=== PATIENT | female | born 1950 | race Caucasian/White ===

== ENCOUNTER 2020-07-05 19:58 | Emergency (ER) | payer MEDICARE, OTHER ==
--- NOTE | 2020-07-05 20:34 | NUR ---
ekg performed and given to md for review
[2020-07-05 20:51] LABS: BASOPHILS # (AUTO) 0.1 (0.0-0.1); BASOPHILS % 1.3 % (0.0-1.0); EOSINOPHILS # (AUTO) 0.1 (0.0-0.4); EOSINOPHILS % 2.3 % (0.0-6.0); HEMATOCRIT 35.7 % (34.2-44.1); HEMOGLOBIN 11.3 g/dL (12.0-16.0); LYMPHOCYTES # (AUTO) 2.3 (1.0-3.2); LYMPHOCYTES % 38.2 % (18.0-39.1); MEAN CORPUSCULAR HEMOGLOBIN 29.3 pg (28-32); MEAN CORPUSCULAR HGB CONC 31.7 g/dL (31-35); MEAN CORPUSCULAR VOLUME 92.5 fL (81-99); MONOCYTES # (AUTO) 0.8 (0.2-0.8); MONOCYTES % 13.2 % (4.4-11.3); NEUTROPHILS # (AUTO) 2.7 (2.1-6.9); NEUTROPHILS % 44.7 % (38.7-80.0); PLATELET COUNT 146 x10e3/uL (140-360); RED BLOOD COUNT 3.86 x10e6/uL (3.6-5.1); RED CELL DISTRIBUTION WIDTH 17.6 % (11.7-14.4)
--- NOTE | 2020-07-05 20:51 | Emergency Department Note ---
History of Present Illnes History of Present Illness Chief Complaint: Respiratory History of Present Illness This is a 69 year old female swelling in legs for 3 years;worsening for the past 3 days; patient admits to not following up with pcp as instructed. denies chest pain, shortness of breath, or back pain . Historian: Patient EMS Treatment [employer]: IV Onset (how long ago): year(s) (3) Location: FEET, LOWER EXTREMITIES Quality: SWELLING Radiation: Reports non-radiation Severity: moderate Onset quality: gradual Duration (how long): month(s) (36) Timing of current episode: constant Progression: worsening Chronicity: chronic Context: Denies recent illness, Denies recent surgery, Denies trauma/injury Relieving factors: none Exacerbating factors: none Associated symptoms: Reports denies other symptoms Past Medical/Family History Physician Review I have reviewed the patient's past medical and family history. Any updates have been documented here. Past Medical History Recent Fever: No Clinical Suspicion of Infectio: No New/Unexplained Change in Ment: No Past Medical History: None Other Surgery: breast augmentation gastric bypass pelvic reconstruction tonsillectomy appendectomy Social History Smoking Cessation: Never Smoker Counseling Performed: No Alcohol Use: Occasional Any Illegal Drug Use: No Physically hurt or threatened: No Family History Family history of heart diseas: No Review of Systems Review of Systems Constitutional: Reports no symptoms EENTM: Reports no symptoms Cardiovascular: Reports no symptoms Respiratory: Reports no symptoms Gastrointestinal: Reports no symptoms Genitourinary: Reports no symptoms Musculoskeletal: Reports no symptoms Integumentary: Reports as per HPI Neurological: Reports no symptoms Psychological: Reports no symptoms Endocrine: Reports no symptoms Hematological/Lymphatic: Reports no symptoms Physical Exam Related Data Allergies: Coded Allergies: No Known Allergies (Unverified , 07/05/20) Triage Vital Signs Vital Signs Date Time Temp Pulse Resp B/P (MAP) Pulse Ox O2 Delivery O2 Flow Rate FiO2 07/05/20 20:24 98.8 96 18 141/84 100 Room Air Vital signs reviewed: Yes Physical Exam CONSTITUTIONAL Constitutional: Present well-developed, Present well-nourished; Absent distressed HENT HENT: Present normocephalic, Present atraumatic, Present oropharynx clear/moist, Present nose normal HENT L/R: Present left ext ear normal, Present right ext ear normal EYES Eyes: Reports PERRL, Reports conjunctivae normal NECK Neck: Present ROM normal PULMONARY Pulmonary: Present effort normal, Present breath sounds normal CARDIOVASCULAR Cardiovascular: Present regular rhythm, Present heart sounds normal, Present capillary refill normal, Present normal rate GASTROINTESTINAL Abdominal: Present soft, Present nontender, Present bowel sounds normal GENITOURINARY Genitourinary: Present exam deferred SKIN Skin: Present warm, Present dry MUSCULOSKELETAL Musculoskeletal: Present ROM normal, Present edema (3+ PITING EDEMA TO FEET AND ANKLES BILATERAL) NEUROLOGICAL Neurological: Present alert, Present oriented x 3, Present no gross motor or sensory deficits PSYCHOLOGICAL Psychological: Present mood/affect normal, Present judgement normal Results Laboratory Laboratory Laboratory Tests Test 07/05/20 20:25 White Blood Count 6.07 x10e3/uL (4.8-10.8) Red Blood Count 3.86 x10e6/uL (3.6-5.1) Hemoglobin 11.3 g/dL (12.0-16.0) Hematocrit 35.7 % (34.2-44.1) Mean Corpuscular Volume 92.5 fL (81-99) Mean Corpuscular Hemoglobin 29.3 pg (28-32) Mean Corpuscular Hemoglobin Concent 31.7 g/dL (31-35) Red Cell Distribution Width 17.6 % (11.7-14.4) Platelet Count 146 x10e3/uL (140-360) Neutrophils (%) (Auto) 44.7 % (38.7-80.0) Lymphocytes (%) (Auto) 38.2 % (18.0-39.1) Monocytes (%) (Auto) 13.2 % (4.4-11.3) Eosinophils (%) (Auto) 2.3 % (0.0-6.0) Basophils (%) (Auto) 1.3 % (0.0-1.0) Neutrophils # (Auto) 2.7 (2.1-6.9) Lymphocytes # (Auto) 2.3 (1.0-3.2) Monocytes # (Auto) 0.8 (0.2-0.8) Eosinophils # (Auto) 0.1 (0.0-0.4) Basophils # (Auto) 0.1 (0.0-0.1) Absolute Immature Granulocyte (auto 0.02 x10e3/uL (0-0.1) Sodium Level 142 mmol/L (136-145) Potassium Level 3.8 mmol/L (3.5-5.1) Chloride Level 104 mmol/L (98-107) Carbon Dioxide Level 23 mmol/L (22-29) Anion Gap 18.8 mmol/L (8-16) Blood Urea Nitrogen 10 mg/dL (7-26) Creatinine 0.68 mg/dL (0.57-1.11) Estimat Glomerular Filtration Rate > 60 ML/MIN (60-) BUN/Creatinine Ratio 15 (6-25) Glucose Level 90 mg/dL (74-118) Calcium Level 8.8 mg/dL (8.4-10.2) Total Bilirubin 0.4 mg/dL (0.2-1.2) Aspartate Amino Transf (AST/SGOT) 60 IU/L (5-34) Alanine Aminotransferase (ALT/SGPT) 26 IU/L (0-55) Alkaline Phosphatase 94 IU/L (40-150) Creatine Kinase 26 IU/L (29-168) Creatine Kinase MB 0.60 ng/mL (0-5.0) Troponin I < 0.001 ng/mL (0-0.300) B-Type Natriuretic Peptide 103.1 pg/mL (0-100) Total Protein 7.0 g/dL (6.5-8.1) Albumin 3.2 g/dL (3.5-5.0) Globulin 3.8 g/dL (2.3-3.5) Albumin/Globulin Ratio 0.8 (0.8-2.0) Lab results reviewed: Yes Imaging Imaging results reviewed: Yes Impressions EXAMINATION: CHEST 2 VIEWS INDICATION: sob COMPARISON: None FINDINGS: TUBES and LINES: None. LUNGS: Normal lung volumes. Lungs are clear. No consolidations. Eventration of the anterior leaflet of the right hemidiaphragm. PLEURA: No pleural effusion or pneumothorax. HEART AND MEDIASTINUM: The cardiomediastinal silhouette is unremarkable. BONES AND SOFT TISSUES: Bones are demineralized. UPPER ABDOMEN: No free air under the diaphragm. Surgical changes of the gastroesophageal junction. IMPRESSION: No acute thoracic radiographic abnormality. Signed by: Nata Roy MD on 07/05/2020 9:31 PM Dictated By: NATA ROY MD [id number] Transcribed By: LANIE on 07/05/202130 COPY TO: GOPI GARCIA MD~ Procedures 12 Lead ECG Interpretation ECG Interpretation : ECG: ECG 1 [facility] [facility] [employer]: Interpreted by ED physician Date: Jul 05, 2020 Time: 20:30 Rhythm: sinus rhythm Rate: normal BPM: 87 QRS axis: normal ST segments normal: Yes T waves normal: Yes T waves flattening: V1, V2 Clinical Impression: abnormal ECG Assessment & Plan Medical Decision Making MDM PT WITH LOWER EXTREMITY SWELLING FOR 3 YEARS THAT IS GETTING WORSE CBC, CMP, CARDIAC ENZYMES, BNP, CXR, EKG ORDERED TO EVAL FOR MYOCARDIAL INFARCTION, PULMONARY EDEMA, CHF, RENAL FAILURE, ELECTROLYTE ABNORMALITY. Assessment & Plan Final Impression: (1) Dependent edema Depart Disposition: HOME, SELF-CARE Last Vital Signs Date Time Temp Pulse Resp B/P (MAP) Pulse Ox O2 Delivery O2 Flow Rate FiO2 07/05/20 20:24 98.8 96 18 141/84 100 Room Air GOPI GARCIA MD Jul 05, 2020 20:51
[2020-07-05 21:03] LABS: ALANINE AMINOTRANSFERASE 26 IU/L (0-55); ALBUMIN 3.2 g/dL (3.5-5.0); ALBUMIN/GLOBULIN RATIO 0.8 (0.8-2.0); ALKALINE PHOSPHATASE 94 IU/L (40-150); ANION GAP 18.8 mmol/L (8-16); BLOOD UREA NITROGEN 10 mg/dL (7-26); BUN/CREATININE RATIO 15 (6-25); CALCIUM 8.8 mg/dL (8.4-10.2); CARBON DIOXIDE 23 mmol/L (22-29); CHLORIDE 104 mmol/L (98-107); CREATINE KINASE 26 IU/L (29-168); CREATININE, SERUM 0.68 mg/dL (0.57-1.11); EST GLOMERULAR FILTRATION RATE > 60 ML/MIN (60-); GLUCOSE 90 mg/dL (74-118); POTASSIUM 3.8 mmol/L (3.5-5.1); SODIUM 142 mmol/L (136-145)
--- NOTE | 2020-07-05 21:35 | Diagnostic Imaging Report ---
EXAMINATION: CHEST 2 VIEWS INDICATION: sob COMPARISON: None FINDINGS: TUBES and LINES: None. LUNGS: Normal lung volumes. Lungs are clear. No consolidations. Eventration of the anterior leaflet of the right hemidiaphragm. PLEURA: No pleural effusion or pneumothorax. HEART AND MEDIASTINUM: The cardiomediastinal silhouette is unremarkable. BONES AND SOFT TISSUES: Bones are demineralized. UPPER ABDOMEN: No free air under the diaphragm. Surgical changes of the gastroesophageal junction. IMPRESSION: No acute thoracic radiographic abnormality. Signed by: Yohan Mackay MD on 07/05/2020 9:31 PM
--- OUTSIDE RECORDS SUMMARY | 2020-07-05 21:45 | XMS REPORT | Continuity of Care Document ---
Author Author Miladys Monsalveann [employer] ALICIA Jerez Organization [employer] Address Unknown Phone Unavailable Care Team Providers Care Mother Repairer Name Role Phone [facility] Revalesio Information [employer] Unavailable Un available Problems Problem Status Onset Date Classification Date Reported Comments Source UNK Active 0 02/27/2018 [facility] ROTATOR CUFF, RT SHOULDER Acti ve 02/27/2018 [facility] RT SHOULDER Active 02/25/2018 WILLIAM Henao Pain in right shoulder 02/08/2018 05/11/2018 FABY Henao,[facility] R79.9 - ABNORMAL FINDING OF BLOOD CHEM Active 05/05/2017 [facility] DDC-6 MONTH F/U VISIT Active 08/19/2014 [facility] CIRRHOSIS OF LIVER WITHOUT MENTION OF AL Active 05/20/2014 [facility] 3 MONTH F/U Active 03/25/2014 [facility] ENLARGED LIVER, ELEVATED BILIRUBIN Active 02/17/2014 [facility] Gastric bypass status for obesity(Confirmed) Resolved 11/27/2003 Problem 02/21/2014 [facility] Gastric band attached (finding) Resolved 11/27/2003 Problem 07/28/2019 [facility], FABY Henao,[facility], [facility] [place] [facility] Primary osteoarthritis, right shoulder 05/11/2018 FABY Lina Unspecified rotator cuff tear or rupture of right shoulder, not specified as traumatic 05/11/2018 FABY Henao Bursitis of right shoulder 05/11/2018 FABY Henao Edema Active 03/25/2014 [facility] Abnormal Blood Chemistry Active 03/25/2014 [facility] Alcohol Abuse Active 03/25/2014 [facility] Hypokalemia Active 03/25/2014 [facility] Medications Medication Details Route Status Patient Instructions Ordering Provider Order Date Source Tramadol 50 mg, Route: PO, Filippo g form: TAB, Q6H, Dosing Weight 72.727, kg, PRN Pain Score 1-3, Start date: 03/12/18 19:36:00 CDT, Duration: 30 day, Stop date: 04/11/18 19:35:00 CDT Inactive 03/13/2018 [facility] Acetaminophen 325 MG / Hydrocodone Niki trate 10 MG Oral Tablet 1 tab, Route: PO, Dosing Weight 72.727, kg, Q4H, PRN Pain Score 4-6, Start date: 03/12/18 19:36:00 CDT, Duration: 30 day, Stop date: 04/11/18 19:35:00 CDT Inactive 03/13/2018 [facility] ropivacaine 0.2% 8 ml/hr, Rout e: NERVE BLOCK, Dosing Weight 72.727, kg, Continuous, Start date: 03/12/18 18:30:00 CDT, Duration: 30 day, Stop date: 04/11/18 18:29:00 CDT Inactive 03/12/2018 [facility] neostigmine (ANES) Route: IV, Drug form: INJ, ONCE, Stop date: 03/12/18 18:18:00 CDT Inactive 03/12/2018 [facility] glycopyrrolate (ANES) Route: I V, Drug form: INJ, ONCE, Stop date: 03/12/18 18:18:00 CDT Inactive 03/12/2018 [facility] dexamethasone (ANES) Route: IV , Drug form: INJ, ONCE, Stop date: 03/12/18 18:18:00 CDT Inactive 03/12/2018 [facility] ondansetron (ANES) Route: IV, Drug form: INJ, ONCE, Stop date: 03/12/18 18:18:00 CDT Inactive 03/12/2018 [facility] ceFAZolin (ANES) Route: IV, Dr ug form: INJ, ONCE, Stop date: 03/12/18 17:33:00 CDT Inactive 03/12/2018 [facility] lidocaine (ANES) Route: IV, Dr ug form: INJ, ONCE, Stop date: 03/12/18 17:33:00 CDT Inactive 03/12/2018 [facility] propofol (ANES) Route: IV, Filippo g form: INJ, ONCE, Stop date: 03/12/18 17:33:00 CDT Inactive 03/12/2018 [facility] rocuronium (ANES) Route: IV, D rug form: INJ, ONCE, Stop date: 03/12/18 17:33:00 CDT Inactive 03/12/2018 [facility] midazolam (ANES) Route: IV, Dr ug form: SOLN, ONCE, Stop date: 03/12/18 17:28:00 CDT Inactive 03/12/2018 [facility] fentaNYL (ANES) Route: IV, Filippo g form: INJ, ONCE, Stop date: 03/12/18 17:28:00 CDT Inactive 03/12/2018 [facility] metoclopramide (ANES) Route: I V, Drug form: INJ, ONCE, Stop date: 03/12/18 17:28:00 CDT Inactive 03/12/2018 [facility] Lactated Ringers Injection IV (ANES) 1000 mL Route: IV, Total Volume: 1,000, Start date: 03/12/18 16:15:00 CDT, Stop date: 03/12/18 17:15:00 CDT Inactive 03/12/2018 [facility] Calcium Chloride 0.0014 MEQ/ML / Potassi um Chloride 0.004 MEQ/ML / Sodium Chloride 0.103 MEQ/ML / Sodium Lactate 0.028 MEQ/ML Injectable Solution 1,000 mL, Rate: 25 ml/hr, Infuse over: 4 0 hr, Route: IV, Dosing Weight 72.727 kg, Total Volume: 1,000, Start date: 03/12/18 10:23:00 CDT, Duration: 30 day, Stop date: 04/11/18 10:22:00 CDT, 1.76, m2 Inactive 03/12/2018 [facility] vancomycin + Dextrose 5% in Water IV 250 mL 2001 mg: infuse over 2.5 hours For adult patients only: Round to nearest 250 mg per Medical Staff approval MEDICATION WASTE Product Size: 1000 mg Product Wasted: ___ mg Inactive 03/12/2018 [facility] ceFAZolin + sterile water 20 mL Notes: (Same As: AncefRyanzol) MEDICATION WASTE Product Size: 1000 mg Product Wasted: ___ mg Inactive 03/12/2018 [facility] multivitamin 1 tab, PO, Daily, 0 Refill(s) Active 03/05/2018 [facility] Albuterol 0.833 MG/ML / Ipratropium Brom kat 0.167 MG/ML Inhalant Solution Notes: (Same as: Lan) Inactive 08/04/2017 [facility] Sodium Chloride 0.9% IV 500 mL 500 mL, Rate: 25 ml/hr, Infuse over: 20 hr, Route: IV, Dosing Weight 62.273 kg, Total Volume: 500, Start date: 08/04/17 10:24:00 CDT, Duration: 30 day, Stop date: 09/03/17 10:23:00 CDT Inactive 08/04/2017 [facility] Calcium Carbonate 1500 MG / Cholecalcife rol 800 UNT Oral Tablet [Caltrate Plus D 600/800] 1 tab, PO, Daily, 0 Refill(s) Active 08/04/2017 [facility] Furosemide 20 MG Oral Tablet S ee Instructions, 1 tab PO Daily, 0 Refill(s) Active 08/04/2017 [facility] potassium chloride 10 mEq oral tablet, extended releas e See Instructions, 1 tab PO BID, 0 Refill(s) Active 08/04/2017 [facility] levothyroxine 50 mcg (0.05 mg) oral tablet 50 microgram = 1 tab, PO, Daily, # 30 tab, 0 Refill(s) Active 08/04/2017 [facility] Vitamin B12 PO, 0 Refill(s) Active 05/20/2014 [facility] nt Mag-Ox 400 oral tablet = 400 m g, PO, BID, # 10 tab, 0 Refill(s), Pharmacy: [facility] [id number] Active 02/21/2014 [facility] nter Vitamin D 0 Refill(s) Active 02/19/2014 [facility] nt Chlordiazepoxide Hydrochloride 5 MG / Cl idinium bromide 2.5 MG Oral Capsule [Librax] 1 cap, PO, Bedtime, # 30 cap, 0 Refill(s ) Active 02/19/2014 [facility] Vitamin B6 250 MG Oral Tablet ; Start Date: 02/12/2014; End Date: (Active) Active 02/12/2014 [facility] Calcium + D TABS (Active) Active [facility] B-12 CAPS (Active) Active [facility] TraMADol HCl 50 MG Oral Tablet (Active) Active [facility] Allergies, Adverse Reactions, Alerts Substance Category Reaction Severity Reaction type Status Date Reported Comments Source Darvon Assertion Drug allergy Active [facility] Fortine Demerol HCl Assertion Drug allergy Active [facility] Fortine Darvon CAPS drug allergy drug allergy Active [facility] Darvocet-N 100 TABS drug aller gy drug aller gy Active [facility] Demerol TABS drug allergy drug allergy Active [facility] No Known Drug Allergies drug a llergy drug aller gy Active [facility] Immunizations No Data Provided for This Section Results No Data Provided for This Section Pathology Reports No Data Provided for This Section Diagnostic Reports Report Value Date Source Shoulder wo contrast MRI EXAMI NATION: MR right shoulder without contrast HISTORY: - S46.001A Unspecified injury of muscle(s) and tendon(s) of the rotator cuff of right shoulder, initial encounter; right shoulder pain and limited range of motion with history of fall one month ago; history of prior right shoulder surgeries COMPARISON: Radiographs dated 01/15/2018 and prior MR dated 02/01/2018 are reviewed. TECHNIQUE: Multiplanar, multisequence magnetic resonance imaging of the right shoulder is performed with a local coil. Transverse, oblique coronal, and oblique sagittal images are obtained. FINDINGS: The examination is mildly limited secondary to patient motion artifact, particularly on the sagittal T2-weighted sequences. Biceps: The intra-articular long head of the biceps tendon is not well- visualized and possibly ruptured with distal retraction versus postoperative changes of interval biceps tenodesis or tenotomy. Labrum: The glenoid labrum appears intact. Rotator cuff tendons: There are postoperative changes of interval attempted rotator cuff repair with multiple orthopedic anchors within the greater tuberosity and bone marrow edema along the posterior aspect of the greater tuberosity. There is persistent severe supraspinatus and infraspinatus tendinosis and there is recurrent full-thickness tearing of the distal supraspinatus tendon, but the infraspinatus tendon appears to remain attached at the orthopedic anchor sites. The teres minor and subscapularis tendons apparent intact. Muscles: There is mild decreased bulk of the supraspinatus muscle belly without fatty atrophy. There is normal signal intensity and bulk of the remainder of the rotator cuff musculature. Acromio-osseous outlet: There is a type II acromion without substantial subacromial spur. There is no os acromiale. The coracoacromial and coracoclavicular ligaments are intact. There is mild degenerative arthrosis of the acromioclavicular joint. Bone: Again, there are postoperative changes of interval attempted rotator cuff repair with multiple orthopedic anchors within the greater tuberosity and bone marrow edema along the posterior aspect of the greater tuberosity. Mild osseous degenerative changes are noted at the acromioclavicular joint. There is no acute fracture. There are no suspicious bone marrow replacing lesions. Cartilage: Again, there is mild degenerative arthrosis of the acromioclavicular joint with associated chondrosis. There is no focal glenohumeral chondral defect. Soft tissue: There is a small glenohumeral joint effusion which communicates with the subacromial subdeltoid bursa through the recurrent full-thickness supraspinatus tendon tear. The inferior glenohumeral capsular ligaments are intact with mild periligamentous soft tissue edema. IMPRESSION: 1. Postoperative changes of interval att empted right rotator cuff repair with multiple orthopedic anchors in place as described above with persistent severe supraspinatus and infraspinatus tendinopathy. There is recurrent full-thickness tearing of the distal right supraspinatus tendon, but the infraspinatus tendon appears to remain attached at the orthopedic anchor sites and there is no rotator cuff muscular fatty atrophy. 2. Intra-articular long head of the righ t biceps tendon is not well-visualized and possibly ruptured with distal retraction versus postoperative changes of interval biceps tenodesis or tenotomy. 3. Mild right acromioclavicular degenera tive arthrosis. 4. Intact right glenoid labrum without f ocal glenohumeral chondral defect. 5. Small right glenohumeral joint effusi on with fluid communicating with the subacromial subdeltoid bursa through the recurrent full-thickness supraspinatus tendon tear. 6. Intact inferior right glenohumeral ca psular ligaments with mild periligamentous soft tissue edema. This is nonspecific, but may be seen in the setting of adhesive capsulitis in the correct clinical context. 03/27/2019 JUAN Henao Shoulder wo contrast MRI EXAMI NATION: MR right shoulder without contrast HISTORY: M25.511 Pain in right shoulder - M25.511 Pain in right shoulder; AGE: 67 years GENDER: Female COMPARISON: Right shoulder radiographs 01/15/2018 TECHNIQUE: Multiplanar, multisequence magnetic resonance imaging of the right shoulder is performed with a local coil. Transverse, oblique coronal, and oblique sagittal images are obtained. FINDINGS: Biceps: The long head of the biceps tendon demonstrates severe intra-articular tendinosis. There is no significant tenosynovitis of the long head of the biceps tendon. Labrum: The glenoid labrum appears intact on this non-arthrographic examination. Rotator cuff tendons: There is severe thinning and tendinosis of the supraspinatus tendon with high-grade undersurface tearing of the entirety of the footplate. Moderate tendinosis of the anterior infraspinatus tendon without tear. The subscapularis and teres minor tendons are intact and unremarkable. Muscles: There is normal signal intensity and muscle bulk of the rotator cuff musculature. Acromio-osseous outlet: There is a type 1 acromion without a subacromial spur. The coracoacromial and coracoclavicular ligaments are intact. Mild osteoarthrosis of the acromial clavicular joint. Bone: There are no acute fractures. There are no suspicious bone marrow replacing lesions. Cartilage: There is no focal glenohumeral chondral defect. Soft tissue: There is a moderate volume of fluidin the subacromial-subdeltoid bursa. A physiologic amount of fluid is present in the glenohumeral joint. The glenohumeral capsule is intact. The inferior glenohumeral ligament is unremarkable..The axilla and visualized portions of the hemithorax are unremarkable. IMPRESSION: 1. Severe thinning and tendinosis of the supraspinatus tendon with a high-grade undersurface tear of the entirety of the residual footplate of the supraspinatus. 2. Moderate tendinosis of the anterior i nfraspinatus tendon without tear. 3. Severe intra-articular tendinosis of the long head of the biceps tendon. 4. Moderate subacromial/subdeltoid bursi tis. 02/01/2018 JUAN Henao Shoulder series DX EXAM: XR RI GHT SHOULDER 3 VIEWS DATE: 01/15/2018 at 1254 hours [employer] INDICATION: Pain in right shoulder COMPARISON: None. TECHNIQUE: AP views in internal and external rotation, and an axillary view of the shoulder FINDINGS: No acute fracture or malalignment is identified. No soft tissue abnormality is identified. IMPRESSION: No acute osseous or soft tissue abnormality of the right shoulder. 01/15/2018 [facility] Gallbladder scan HIDA w [facility] NUCLEAR MEDICINE HIDA SCAN July 10, 2017 at 1515 hours INDICATION: K81.9 Cholecystitis, unspecified COMPARISON: Abdomen CT dated May 10, 2017 TECHNIQUE: Following the intravenous administration of 5.27 cm millicuries technetium-99m Mebrofenin, dynamic images of the abdomen were obtained in the anterior projection for 60 minutes. Next, after oral ingestion of Ensure , dynamic images were obtained of the abdomen for additional 30 minutes. A region of interest was drawn around the gallbladder and ejection fraction was calculated. FINDINGS: There is normal extraction of radiotracer by the hepatic parenchyma with normal clearance. The intrahepatic biliary duct, common bile duct, gallbladder and small bowel are all visualized within first 60 minutes. Gallbladder ejection fraction is normal at 30minutes, measuring 61%. (Normal is greater than 35%) IMPRESSION: Normal gallbladder ejection fraction. 07/10/2017 [facility] Chest w/wo contrast CT EXAM: CT CHEST WITHOUT CONTRAST EXAM: CT CHEST WITH CONTRAST DATE: 05/10/2017 8:29 AM CDT INDICATION: - J98.6 Disorders of diaphragm TECHNIQUE: A helical CT acquisition of the chest performed without contrast. A helical CT chest was then acquired with intravenous contrast. Axial, sagittal and coronal reconstructions. Axial MIP reformats. IV Contrast: 100 cc Omnipaque 300. DLP: 2005.17 mGy-cm COMPARISON: CT chest without contrast performed 04/04/2008. FINDINGS: Lines and Tubes: None. Lower Neck: There is a hypoattenuating right thyroid nodule, which measures 9 x 14 mm, series 7, axial image 25. Tiny subcentimeter thyroid nodule suggested to be in the thyroid isthmus and left thyroid lobe. Heart, Mediastinum and Great Vessels: Heart size is within normal limits. No pericardial effusion demonstrated. Moderate scattered aortic calcification and mild coronary calcification. Lymph Nodes: No hilar, mediastinal, axillary or internal mammary lymphadenopathy. Lungs: Is platelike atelectasis or scarring in the right lower lobe. Mild subsegmental atelectasis in both lower lobes. No large consolidation, intrathoracic mass, nor suspicious pulmonary nodule identified. Pleura: No pleural effusion or pneumothorax. Esophagus and upper abdomen: Please refer to separate report for details below the diaphragm. There is moderate asymmetric elevation of the right hemidiaphragm and mild eventration of the right hemidiaphragm noted posteriorly. The left hemidiaphragm is grossly unremarkable. Surgical clips in the region of the left upper quadrant and hiatus are noted. Bones and Soft Tissues: Bilateral breast prostheses are in place. No destructive bony lesions. Vertebral body hemangioma in the T11 vertebral body. IMPRESSION: 1. No acute findings in the chest. 2. Moderate elevation of the right hemid iaphragm with eventration. 05/10/2017 [facility] Abdomen w/wo IV contrast CT EX AM: CT ABDOMEN WITH AND WITHOUT CONTRAST DATE: 05/10/2017 8:29 AM CDT INDICATION: - R63.4 Abnormal weight loss ADDITIONAL INFORMATION: None. COMPARISON: Liver ultrasound of 08/26/2014. PA and lateral chest x-ray of 05/05/2017 TECHNIQUE: Volumetric CT acquisition of the abdomen before and after intravenous contrast. Axial, coronal and sagittal reconstructions. Postcontrast phases: Venous and delayed. IV contrast: 100 cc of Omnipaque 300 Oral contrast: Oral Omnipaque 300 and water mixture. FINDINGS: Lines and tubes: None. Lower thorax: For details on the included thorax including the diaphragm, please see the separate CT scan of the chest performed concurrently with this exam. Liver: A simple fluid attenuation thin-walled cyst is again seen in segment 6 of the right hepatic lobe measuring 4.0 x 4.2 x 3.6 cm. The liver displays diffuse decreased density compatible with diffuse fatty infiltration (steatosis). Areas of normal density liver seen adjacent to the gallbladder compatible with areas of focal fatty sparing. Biliary tree: No intra- or extrahepatic biliary ductal dilation. Gallbladder: Cholelithiasis is again demonstrated with a single 1.0 cm gallstone within the gallbladder lumen. Gallbladder wall is mildly thickened and enhancing with no surrounding inflammatory changes.. Pancreas: Normal. Spleen: Normal. Adrenals: Normal. Kidneys and ureters: A 7 mm hypodense lesion is seen in the inferior pole cortex of the left kidney which is too small to characterize. A 6 mm hypodensity is seen in the mid cortex of the left kidney which is too small to characterize. A nonenhancing hyperdense cyst is seen arising exophytically from the superior pole the left kidney measuring 2.0 cm in maximal diameter. A nonenhancing simple fluid attenuation cyst is seen in the right kidneys upper pole measuring 1.9 cm in maximal diameter. A 9 mm hypodense lesion is seen in the superior pole of the right kidney which is too small to characterize. No bilateral hydronephrosis, masses, or calculi are seen. The ureters are of normal course and caliber with no constricting or obstructing lesions. Gastrointestinal tract: The patient is status post prior gastric surgery with clips in the epigastric region and along the stomach wall. A suture line is seen in the small bowel on image 45 of series 11. There is some thickening of the small bowel at the presumed anastomotic site. A portion of the colon may be surgically absent. Clinical correlation is recommended. No other abnormalities of the included large and small bowel are demonstrated. The visualized small intestine and colon are of normal course and caliber with no constricting or obstructing lesions, masses, or surrounding inflammatory changes. Appendix: Not visualized Peritoneum and retroperitoneum: No ascites or free air. Lymph nodes: No abdominal lymphadenopathy is seen. Vasculature: Extensive atherosclerotic calcified plaque formation is seen in the included aortoiliac system with no aneurysm noted. The inferior vena cava and portal venous system are normal in appearance. Bones: Multilevel spondylosis and disc space narrowing are seen in the included thoracic and lumbar spine. Multilevel facet joint osteoarthritis is seen in the lumbar spine. There is mild dextroscoliosis of the lumbar spine.. Soft tissues/abdominal wall: Normal. No hernias, masses, or fluid collections are seen. IMPRESSION: 1. No subdiaphragmatic masses are seen to explain the patient's right hemidiaphragmatic elevation. 2. Diffuse hepatic steatosis as seen on the prior liver ultrasound. 3. Simple right hepatic lobe benign cys t. 4. Simple cyst in the right kidney. Oth er hypodensities are too small to characterize. A Bosniak 2 cyst is seen arising exophytically from the superior cortex of the left kidney. 5. Status post prior bowel and gastric surgery. Mild thickening of the bowel wall at the anastomotic site in the mid abdomen is likely related to scar tissue. Underlying infectious, inflammatory, or neoplastic etiologies are less likely. Clinical correlation is recommended. 6. Cholelithiasis. Mild thickening of t he gallbladder wall may represent reactive changes from chronic cholelithiasis. No surrounding inflammatory changes or fluid collections are seen to suggest acute cholecystitis. Clinical correlation is recommended. 05/10/2017 [facility] Spine lumbar series DX EXAM: X R LUMBAR SPINE 5 VIEWS DATE: 05/05/2017 9:33 AM CDT INDICATION: - M54.5 Low back pain COMPARISON: None TECHNIQUE: AP, lateral LPO, RPO, lateral, and spot lateral radiographs of the lumbar spine FINDINGS: 5 lumbar type, non-rib bearing vertebral bodies are present. Mild dextroconvex scoliosis of the lumbar spine. Vertebral body heights are maintained. There is disc height loss and moderate vertebral body osteophytes throughout the lumbar spine, greatest along inner curvature of patient's scoliosis. Moderate facet arthropathy, also greatest along inner curvature of scoliosis. No pars defects identified. Extensive arterial calcification. Multiple surgical clips overlie the upper abdomen. IMPRESSION: 1. Mild dextroconvex scoliosis of the yanira mbar spine. 2. Moderate spondylosis of the lumbar sp ine, greatest along inner curvature of scoliosis. 05/05/2017 [facility] Chest 2 views DX EXAM: XR CHES T 2 VIEWS DATE: 05/05/2017 9:33 AM CDT INDICATION: - R79.9 Abnormal finding of blood chemistry, unspecified. Cough. COMPARISON: 08/16/2007 TECHNIQUE: PA and lateral chest radiographs FINDINGS: There has been interim development of right anterior hemidiaphragm elevation. No lung parenchymal or pleural abnormalities are seen. Ciera and pulmonary vasculature are normal. Atherosclerotic calcifications are seen in the aortic arch and in the descending thoracic aorta, increased from the prior exam. No acute bony abnormality is identified. Multilevel spondylosis is again seen in the thoracic spine. Numerous surgical clips are seen in the upper central abdomen. IMPRESSION: 1. New nonspecific elevation of the righ t anterior hemidiaphragm. Differential diagnosis would include developing eventration, subpulmonic or subdiaphragmatic pathology, or diaphragmatic hernia. CT scanning of the chest with contrast may be performed for further evaluation. 2. Increased atherosclerotic plaquing in the thoracic aorta. 05/05/2017 [facility] Liver w Liver vessels Doppler US LIVER ULTRASOUND WITH LIVER VESSEL DOPPLER CLINICAL HISTORY: Abnormal hepatic enzymes. COMPARISON IMAGING: No previous ultrasound is available for comparison. Correlation is made with CT chest of Apr 04 2008 FINDINGS: Liver: Measures 13 cm in length (normal: 13-17 cm). Echogenicity is heterogeneous, suggestive of fibrofatty infiltration. No suspicious lesion or surface nodularity. A simple cyst is seen in the right hepatic lobe posteriorly measuring 3.4 x 2.8 x 3.6 cm, corresponding to findings seen on previous CT. Another right hepatic lobe cysts seen on the previous CT is not visualized on this exam. The main portal vein and its branches are patent with normal direction of flow. The hepatic veins are patent with appropriate waveforms. The hepatic arteries patent with appropriate velocity and waveform. Biliary: Several small mobile gallstones are present. There is no gallbladder wall thickening or sonographic Weston sign to suggest acute cholecystitis. There is no biliary duct dilation. Mid common bile duct measures 5 mm in diameter. Pancreas: Obscured by bowel gas and unable to be evaluated. Vascular: Visualized portions of the IVC are patent. No obvious aneurysmal dilatation of the aorta. Note is made of atherosclerotic plaque in the abdominal aorta. IMPRESSION: 1. Increased hepatic echogenicity, sugge stive of fibrofatty infiltration. 2. Right hepatic lobe cyst measuring 3.6 cm in maximal dimension. 3. Cholelithiasis without sonographic ev idence for acute cholecystitis. 08/26/2014 FABY Henao Consultation Notes No Data Provided for This Section Discharge Summaries No Data Provided for This Section History and Physicals No Data Provided for This Section Vital Signs Vital Sign Value Date Comments Source Respitory Rate 20 03/13/2018 [facility] Systolic (mm Hg) 126 03/13/2018 [facility] Diastolic (mm Hg) 66 03/13/2018 [facility] Respitory Rate 26 03/12/2018 [facility] Systolic (mm Hg) 150 03/12/2018 [facility] Diastolic (mm Hg) 67 03/12/2018 [facility] Systolic (mm Hg) 150 03/12/2018 [facility] Diastolic (mm Hg) 67 03/12/2018 [facility] Respitory Rate 25 03/12/2018 [facility] BMI Calculated 33.51 03/05/2018 [facility] Weight 72.727 03/05/2018 [facility] Height 147.32 cm 03/05/2018 [facility] Temperature Oral (F) 98.9 F 03/05/2018 [facility] Heart Rate 86 03/05/2018 [facility] Respitory Rate 13 08/04/2017 [facility] Systolic (mm Hg) 158 08/04/2017 [facility] Diastolic (mm Hg) 71 08/04/2017 [facility] Respitory Rate 15 08/04/2017 [facility] Systolic (mm Hg) 149 08/04/2017 [facility] Diastolic (mm Hg) 75 08/04/2017 [facility] Respitory Rate 16 08/04/2017 [facility] Systolic (mm Hg) 132 08/04/2017 [facility] Diastolic (mm Hg) 75 08/04/2017 [facility] BMI Calculated 27.73 08/03/2017 [facility] Weight 62.273 08/03/2017 [facility] Height 149.86 cm 08/03/2017 [facility] Respitory Rate 16 08/19/2014 [facility] Systolic (mm Hg) 168 08/19/2014 [facility] Diastolic (mm Hg) 88 08/19/2014 [facility] Heart Rate 73 08/19/2014 [facility] Weight 63.3 08/19/2014 [facility] BMI Calculated 28.51 08/19/2014 [facility] Height 149 cm 08/19/2014 [facility] Heart Rate 66 05/20/2014 [facility] Respitory Rate 14 05/20/2014 [facility] Systolic (mm Hg) 125 05/20/2014 [facility] Diastolic (mm Hg) 79 05/20/2014 [facility] Height 147 cm 05/20/2014 [facility] BMI Calculated 26.05 05/20/2014 [facility] Weight 56.3 05/20/2014 [facility] Respitory Rate 16 02/19/2014 [facility] Systolic (mm Hg) 91 02/19/2014 [facility] Diastolic (mm Hg) 65 02/19/2014 [facility] Height 147 cm 02/19/2014 [facility] Heart Rate 99 02/19/2014 [facility] Weight 61.4 02/19/2014 [facility] BMI Calculated 28.41 02/19/2014 [facility] Encounters Location Location Details Encounter Type Encounter Number Reason For Visit Attending Provider ADM Date DC Date Status Source AUDIT [id number] 02/13/2014 02/13/2014 [facility] Outpatient [id number] _[id number] Non P hysician 02/19/2014 02/20/2014 [facility] AUDIT [id number] 03/01/2014 03/01/2014 [facility] AUDIT [id number] 03/04/2014 03/04/2014 [facility] CALE, Provi berna: KJ SANFORD, Status: Pen, Time: 10:00 AM [id number] 03/11/20 14 03/04/2014 [facility] JASMIN, Provi berna: BON WESTON, Status: Pen, Time: 9:45 AM [id number] 03/24/20 14 03/04/2014 [facility] AUDIT [id number] 03/25/2014 03/25/2014 [facility] Outpatient [id number] [facility] 05/20/2014 05/21/2014 [facility] Outpatient [id number] [facility] 08/19/2014 08/20/2014 [facility] [place] [facility] [id number] 00 Elen Bailey 08/26/2014 08/27/2014 [facility] [place] [facility] [place] [facility] Out[facility] Di[facility] Services [id number] 01 Bon Weston 05/05/2017 05/06/2017 [facility] Outpatient Imaging - [place] [facility] Outpt Diag Services [id number] 02 Bon Weston 05/10/2017 05/11/2017 [facility] Outpatient [facility] - [place] [facility] Outpt Diag Services [id number] 00 Bon Weston 06/27/2017 06/28/2017 [facility] Outpatient Imaging [facility] Outpt Diag Services [id number] 03 Bon Weston 07/10/2017 07/11/2017 [facility] Outpatient [id number] Elías Owens 08/04/2017 08/04/2017 [facility] Outpatient [facility] - [place] [facility] Outpt Diag Services [id number] 04 Bon Weston 01/15/2018 01/16/2018 [facility] Outpatient Imaging - [place] Outpt Diag Services [id number] 05 Bon Weston 02/01/2018 [facility]02[facility] [place] [facility] [id number] Jeffrey Chaudhary 03/12/2018 03/13/2018 [facility] Outpatient Imaging - [place] Outpt Diag Services [id number] 06 Bon Weston 03/27/2019 03/28/2019 [facility] [place] [facility] [place] [facility] Patients [id number] Jeffrey Chaudhary 06/27/2019 07/27/2019 [facility] [place] Procedures Procedure Code Date Perfomer Comments Source Abdominal hysterectomy [id number] 05 [facility], [facility] [place],[facility] [place],[facility] Abdominoplasty [id number] [facility], [facility] [place],[facility] [place],[facility] [place] [facility]ilateral breast implants [id number] 2000 [facility], [facility] [place],[facility] [place],[facility] [place] [facility] Buttock lift [id number] [facility], [facility] [place],[facility] [place],[facility] [place] [facility] Elbow joint operations [id number] 05 [facility], [facility] [place],[facility] [place], [facility] [place] [facility] Gastric bypass operation 50588 003 [facility], [facility] [place],[facility] [place],[facility] Knee joint operation [id number] [facility], [facility] [place],[facility] [place] [facility] [place] [facility] Shoulder joint operations<sup>1</sup> [id number] bilateral [facility], [facility] [place], [place] [place], [facility] [place] [facility] Suspension of bladder [id number] [facility], [facility] [place],[facility] [place], [facility] [place] [facility] Assessment and Plan No Data Provided for This Section Plan of Care Plan of Care Date Source CT Abd Liver Protocol w/wo IV contrast 7 417-02/12/2014 Routine 03/25/[address] [facility] [address] Abd Liver Protocol w/wo IV contrast 7 4170-02/12/2014 Routine[QLH] MAGNESIUM 03/04/2014 Routine[QL] CMP W/EGFR 03/04/2014 Routine 03/04/[address] [facility] [address] Abd Liver Protocol w/wo IV contrast 7 417-02/12/2014 Routine 03/01/[address] [facility] [address] Abd Liver Protocol w/wo IV contrast 7 417-02/12/2014 Routine 02/13/2014 [facility] Social History Social History Date Source Social History TypeResponse Alcohol Past, Type Wine, Liquor. Last use: 3 weeks ago. Previous treatment: None. Alcohol use interferes with work or home: No. Smoking Status Never smoker; Exposure to Tobacco Smoke None; Cigarette Smoking Last 365 Days No; Reg Smoking Cessation Counseling No entered on: 03/12/18 03/12/2018 [facility] [place] Social History TypeResponse Alcohol Past, Type Wine, Liquor. Last use: 3 weeks ago. Previous treatment: None. Alcohol use interferes with work or home: No. Smoking Status Never smoker; Exposure to Tobacco Smoke None; Cigarette Smoking Last 365 Days No; Reg Smoking Cessation Counseling No entered on: 03/12/18 03/12/2018 FABY Henao Social History TypeResponse Alcohol Past, Type Wine, Liquor. Last use: 3 weeks ago. Previous treatment: None. Alcohol use interferes with work or home: No. Smoking Status Never smoker; Exposure to Tobacco Smoke None; Cigarette Smoking Last 365 Days No; Reg Smoking Cessation Counseling No entered on: 03/12/18 03/12/2018 [facility] Social History TypeResponse Alcohol Past, Type Wine, Liquor. Last use: 3 weeks ago. Previous treatment: None. Alcohol use interferes with work or home: No. Smoking Status Never smoker; Exposure to Tobacco Smoke None; Cigarette Smoking Last 365 Days No; Reg Smoking Cessation Counseling No entered on: 03/12/18 03/12/2018 [facility] Kateryna Never A Smoker (Active) Nida jama History - Currently (Active) Occupation: Comments: retired (Active) 03/25/2014 [facility] Social History TypeResponse Alcohol Past, Type Wine, Liquor. Last use: 3 weeks ago. Previous treatment: None. Alcohol use interferes with work or home: No. Smoking Status Never smoker; Exposure to Tobacco Smoke None; Cigarette Smoking Last 365 Days No; Reg Smoking Cessation Counseling No 02/19/2014 [facility] Social History TypeResponse Alcohol Past, Type Wine, Liquor. Last use: 3 weeks ago. Previous treatment: None. Alcohol use interferes with work or home: No. Smoking Status Never smoker; Exposure to Tobacco Smoke None; Cigarette Smoking Last 365 Days No; Reg Smoking Cessation Counseling No 02/19/2014 [facility] Social History TypeResponse Alcohol Use: Past, Type: Wine, Type: Liquor, Previous treatment: None, Has alcohol use interfered with work or home life? No Smoking Status Never smoker, Exposure to Tobacco Smoke None, Cigarette Smoking Last 365 Days No, Reg Smoking Cessation Counseling No 02/19/2014 [facility] Family History Value Date S ource Maternal history of Stroke Syndrome (V17 .1); (Active) Paternal history of Coronary Artery Disease (V17.49); (Active) 03/25/2014 [facility] Maternal history of Stroke Syndrome (V17 .1); (Active) Paternal history of Coronary Artery Disease (V17.49); (Active) 03/04/2014 [facility] Maternal history of Stroke Syndrome (V17 .1); (Active) Paternal history of Coronary Artery Disease (V17.49); (Active) 03/01/2014 [facility] Maternal history of Stroke Syndrome (V17 .1); (Active) Paternal history of Coronary Artery Disease (V17.49); (Active) 02/13/2014 [facility] Advance Directives Order Name Results Value Date Source Advance Directives Advance Dir ectives No Advance Directives available. 03/25/2014 [facility] Advance Directives Advance Dir ectives No Advance Directives available. 03/04/2014 [facility] Advance Directives Advance Dir ectives No Advance Directives available. 03/01/2014 [facility] Advance Directives Advance Dir ectives No Advance Directives available. 02/13/2014 [facility] Functional Status No Data Provided for This Section
--- OUTSIDE RECORDS SUMMARY | 2020-07-05 21:45 | XMS REPORT | Summary of Care ---
Author Author [facility] Outpatient Imaging - [facility] Organization [facility] Outpatient Imaging [facility] Address Unknown Phone Unavailable Encounter HQ Zuleyma(FIN) [id number] Date(s): 06/27/17 - 06/27/17 [facility] Outpatient Imaging [address], [address] [place] [phone] Discharge Disposition: Home or Self Care Attending Physician: Everett Weston MD Vital Signs No data available for this section Problem List Condition Effective Dates Status Health Status Informan t Gastric bypass 11/27/03 Resolved status for obesity(Confirmed) Allergies, Adverse Reactions, Alerts No data available for this section Medications No data available for this section Results No data available for this section Immunizations No data available for this section Procedures No data available for this section Social History Social History Type Response Alcohol Past, Type Wine, Liquor. L ast use: 3 weeks ago. Previous treatment: None. Alcohol use interferes with work or zeke e: No. Smoking Status Never smoker; Exposure to T obacco Smoke None; Cigarette Smoking Last 365 Days No; Reg Smoking Cessation Counseli ng No Assessment and Plan No data available for this section
--- OUTSIDE RECORDS SUMMARY | 2020-07-05 21:45 | XMS REPORT ---
Author Author ALICIA Kelly Organization Unknown Address Unknown Phone Care Team Providers Care Software Test Analyst Name Role Phone Katie Kelly PP Unavailable Reason for Referral No Reason for Referral was given. History of Present Illness No HPI available. Problems * Normal Routine History And Physical Senior Citizen (65-80) (V70.0); ( Active) * Edema (782.3); (Active) * Hypokalemia (276.8); (Active) * Abnormal Blood Chemistry (790.6); (Active) * Alcohol Abuse (305.00); (Active) Medication * Calcium + D TABS; TAKE 1 TABLET DAILY. (Active) * Vitamin B6 250 MG Oral Tablet; TAKE 1 TABLET DAILY DIRECTED.; Start Date: 02/12/2014; End Date: (Active) Allergies and Adverse Reactions * Darvon CAPS (Active) * Darvocet-N 100 TABS (Active) * Demerol TABS (Active) Past Medical History * History of Hiatal Hernia (553.3); (Resolved) * History of Asthma (493.90); (Resolved) * History of Edema (782.3); (Resolved) * History of Pharyngitis (462); (Resolved) Procedures Procedure Procedure Date Date Completed Status Hysterectomy - - Resolved Tonsillectomy With Adenoidectomy - - Resolved Bladder Procedures - - Resolved Gastric Surgery For Morbid Obesity Gastric Bypass - - Resolved Shoulder Surgery - - Resolved Appendectomy - - Resolved Elbow Surgery - - Resolved Family History * Maternal history of Stroke Syndrome (V17.1); (Active) * Paternal history of Coronary Artery Disease (V17.49); (Active) Social History * Never A Smoker (Active) * Marital History - Currently (Active) * Occupation: Comments: retired (Active) Treatment Plan * CT Abd Liver Protocol w/wo IV contrast 35763-65 02/12/2014 Routine Advance Directives * No Advance Directives available. Encounters * AUDIT 03/25/2014
--- OUTSIDE RECORDS SUMMARY | 2020-07-05 21:45 | XMS REPORT | Summary of Care ---
Author Author [facility] Outpatient Imaging - [facility] Organization [facility] Outpatient Imaging - [facility] Address Unknown Phone Unavailable Encounter NAY Amor(FIN) [id number] Date(s): 03/27/19 - 03/27/19 [facility] [place] [address] [place] [phone] Discharge Disposition: Home or Self Care Attending Physician: Everett Weston MD Referring Physician: Everett Weston MD Vital Signs No data available for this section Problem List Condition Effective Dates Status Health Status Informan t Gastric bypass 11/27/03 Resolved status for obesity(Confirmed) Allergies, Adverse Reactions, Alerts Substance Reaction Severity Status Darvon Active Demerol HCl Active Medications No data available for this section Results No data available for this section Immunizations No data available for this section Procedures Procedure Date Related Diagnosis Body Site Status Abdominal hysterectomy Completed Abdominoplasty Completed Bilateral breast implants Completed Buttock lift Completed Elbow joint operations Completed Gastric bypass operation Completed Knee joint operation Completed Shoulder joint operations1 Completed Suspension of bladder Completed 1bilateral Social History Social History Type Response Alcohol Past, Type Wine, Liquor. L ast use: 3 weeks ago. Previous treatment: None. Alcohol use interferes with work or zeke e: No. Smoking Status Never smoker; Exposure to T obacco Smoke None; Cigarette Smoking Last 365 Days No; Reg Smoking Cessation Counseli ng No entered on: 03/12/18 Assessment and Plan No data available for this section
--- OUTSIDE RECORDS SUMMARY | 2020-07-05 21:45 | XMS REPORT | Summary of Care ---
Author Author [facility] Address Unknown Phone Unavailable Encounter HQ Eliar_beverly(FIN) [id number] Date(s): 06/27/19 - 07/26/19 [facility] Discharge Disposition: Home or Self Care Attending Physician: Jeffrey Chaudhary MD Vital Signs No data available for [...]
--- OUTSIDE RECORDS SUMMARY | 2020-07-05 21:45 | XMS REPORT | Summary of Care ---
Author Organization Unknown Address Unknown Phone Unavailable Care Team Providers Care Personal Injury Litigation Paralegal Name Role Phone Abilio Alexandra PCP Encounter HQ Zuleyma(SUHAS) [id number] Date(s): 05/20/14 - 05/20/[address] Discharge Disposition: Home Physician Attending: Abilio Alexandra MD Physician_Referring: Abilio Alexandra MD Reason for Visit 3 MONTH F/U Vital Signs Most recent to 1 oldest [Reference Range]: Height 147 cm (05/20/14 10:37 AM) Systolic Blood 125 mmHg Pressure [90-140 (05/20/14 10:37 AM) mmHg] Diastolic Blood 79 mmHg Pressure [60-90 (05/20/14 10:37 AM) mmHg] Respiratory Rate 14 BRMIN [14-20 BRMIN] (05/20/14 10:37 AM) Peripheral Pulse 66 bpm Rate [60-100 bpm] (05/20/14 10:37 AM) Weight 56.3 kg (05/20/14 10:37 AM) Body Mass Index 26.05 m2 (05/20/14 10:37 AM) Problem List Condition Effective Dates Status Health Status Informan t Gastric bypass 11/27/03 Resolved status for obesity(Confirmed) Allergies, Adverse Reactions, Alerts No data available for this section Medications Vitamin B12 PO, 0 Refill(s) Start Date: 05/20/14 Status: Ordered Medications Administered During Your Visit No data available for this section Immunizations No data available for this section Social History Social History Type Response Alcohol Use: Past, Type: Wine, Type : Liquor, Previous treatment: None, Has alcohol use interfered with work or home life? No Smoking Status Never smoker, Exposure to T obacco Smoke None, Cigarette Smoking Last 365 Days No, Reg Smoking Cessation Counseli ng No
--- OUTSIDE RECORDS SUMMARY | 2020-07-05 21:45 | XMS REPORT | Summary of Care ---
Author Author [facility] Outpatient Imaging [facility] Organization [facility] Outpatient Imaging [facility] Address Unknown Phone Unavailable Encounter HQ Eliar_beverly(FIN) [id number] Date(s): 07/10/17 - 07/10/17 [facility] Outpatient Imaging [address] [phone] Discharge Disposition: Home or Self Care Attending [...]
--- OUTSIDE RECORDS SUMMARY | 2020-07-05 21:45 | XMS REPORT | Summary of Care ---
Author Author [facility] Outpatient Imaging - [facility] Organization [facility] Outpatient Imaging [facility] Address Unknown Phone Unavailable Encounter NAY Amor(FIN) [id number] Date(s): 05/05/17 - 05/05/17 [facility] Outpatient Imaging [address], [address] [place] [phone] Discharge Disposition: Home or Self Care Attending [...]
--- OUTSIDE RECORDS SUMMARY | 2020-07-05 21:45 | XMS REPORT | Summary of Care ---
Author Author [facility] Organization [facility] Address Unknown Phone Unavailable Encounter NAY Amor(SUHAS) [id number] Date(s): 08/04/17 - 08/04/17 [facility] [address] [place] [address]- [phone] Discharge Disposition: Home or Self Care Attending Physician: Elías Owens MD Referring Physician: Elías Owens MD Vital Signs 1 2 3 Most recent to oldest [Reference Range]: 149.86 cm (08/03/17 4:30 PM) Height 158/71 mmHg *HI* (08/04/17 11:30 AM) 149/75 mmHg *HI* (08/04/17 11:15 AM) 132/75 mmHg (08/04/17 10:59 AM) Blood Pressure [90-140/60-90 mmHg] 13 BRMIN *LOW* (08/04/17 11:30 AM) 15 BRMIN (08/04/17 11:15 AM) 16 BRMIN (08/04/17 10:59 AM) Respiratory Rate [14-20 BRMIN] 62.273 kg (08/03/17 4:30 PM) Weight 27.73 m2 (08/03/17 4:30 PM) Body Mass Index Problem List Condition Effective Dates Status Health Status Informan t Gastric bypass 11/27/03 Resolved status for obesity(Confirmed) Allergies, Adverse Reactions, Alerts Substance Reaction Severity Status Darvon Active Medications albuterol-ipratropium 2.5-0.5 mg inhalation solution 3 mL, Route: NEB, Drug Form: SOLN, Dosing Weight 62.273, kg, ONCE, STAT, Start d ate: 08/04/17 10:24:00 CDT, Stop date: 08/04/17 10:24:00 CDT Notes: (Same as: Lan) Start Date: 08/04/17 Stop Date: 08/04/17 Status: Ordered Caltrate 600 + D oral tablet 1 tab, PO, Daily, 0 Refill(s) Start Date: 08/04/17 Status: Ordered furosemide 20 mg oral tablet See Instructions, 1 tab PO Daily, 0 Refill(s) Start Date: 08/04/17 Status: Ordered levothyroxine 50 mcg (0.05 mg) oral tablet 50 microgram = 1 tab, PO, Daily, # 30 tab, 0 Refill(s) Start Date: 08/04/17 Status: Ordered potassium chloride 10 mEq oral tablet, extended release See Instructions, 1 tab PO BID, 0 Refill(s) Start Date: 08/04/17 Status: Ordered Sodium Chloride 0.9% IV 500 mL 500 mL, Rate: 25 ml/hr, Infuse over: 20 hr, Route: IV, Dosing Weight 62.273 kg, Total Volume: 500, Start date: 08/04/17 10:24:00 CDT, Duration: 30 day, Stop magaly e: 09/03/17 10:23:00 CDT Start Date: 08/04/17 Stop Date: 08/04/17 Status: Discontinued Results No data available for this section Immunizations No data available for this section Procedures Procedure Date Related Diagnosis Body Site Abdominoplasty Elbow joint operations Knee joint operation Shoulder joint operations1 1bilateral Social History Social History Type Response [...]
--- OUTSIDE RECORDS SUMMARY | 2020-07-05 21:45 | XMS REPORT ---
Author Author ALICIA SANFORD Organization Unknown Address Unknown Phone Care Team Providers Care Bricklayer'S Assistant Name Role Phone SANFORDBRANDON YANESHA PP Unavailable Reason for Referral No Reason for Referral was given. History of Present Illness No HPI available. Problems * Normal Routine History And Physical Senior Citizen (65-80) (V70.0); ( Active) * Edema (782.3); (Active) * Hypokalemia (276.8); (Active) * Abnormal Blood Chemistry (790.6); (Active) * Alcohol Abuse (305.00); (Active) Medication * Calcium + D TABS; TAKE 1 TABLET DAILY. (Active) * B-12 CAPS; one tab daily (Active) * Vitamin B6 250 MG Oral Tablet; TAKE 1 TABLET DAILY DIRECTED.; Start Date: 02/12/2014; End Date: (Active) Allergies and Adverse Reactions * No Known Drug Allergies (Active) Past Medical History * History of [...] History * Never A Smoker (Active) * Never Drank Alcohol (Active) * Marital History - Currently (Active) * Occupation: Comments: retired (Active) Treatment Plan * CT Abd Liver Protocol w/wo IV contrast 83159-34 02/12/2014 Routine Advance Directives * No Advance Directives available. Encounters * AUDIT 02/13/2014 * ECL, Provider: KJ SANFORD, Status: Carlos, Time: 10:00 AM 03/11/2014
--- OUTSIDE RECORDS SUMMARY | 2020-07-05 21:45 | XMS REPORT | Summary of Care ---
Author Author [facility] Outpatient Imaging - [facility] Organization [facility] Outpatient Imaging [facility] Address Unknown Phone Unavailable Encounter HQ Zuleyma(FIN) [id number] Date(s): 05/10/17 - 05/10/17 [facility] Outpatient Imaging [address], [address] [place] [phone] Discharge Disposition: Home or Self Care Attending [...]
--- OUTSIDE RECORDS SUMMARY | 2020-07-05 21:45 | XMS REPORT | Summary of Care ---
Author Organization Unknown Address Unknown Phone Unavailable Care Team Providers Care Sensor Specialist Name Role Phone Abilio Alexandra PCP Encounter HQ Zuleyma(FIN) [id number] Date(s): 08/26/14 - 08/26/14 [facility] Outpatient Imaging [address] [address] [place] Discharge Disposition: Home Physician Attending: Elen Bailey MD Reason for Visit 790.5 - ABN SERUM ENZY Problem List Condition Effective Dates Status Health Status Informan t Gastric bypass 11/27/03 Resolved status for obesity(Confirmed) Allergies, Adverse Reactions, Alerts No data available for this section Medications No data available for this section Medications Administered During Your Visit No data [...]
--- OUTSIDE RECORDS SUMMARY | 2020-07-05 21:45 | XMS REPORT | Summary of Care ---
Author Author [facility] Organization [facility] Address Unknown Phone Unavailable Encounter NAY Amor(SUHAS) [id number] Date(s): 03/12/18 - 03/12/18 [facility] [address] [place] [address]- [facility] [phone] Discharge Disposition: Home or Self Care Attending Physician: Jeffrey Chaudhary MD Referring Physician: Jeffrey Chaudhary MD Vital Signs 1 2 3 Most recent to oldest [Reference Range]: 147.32 cm (03/05/18 1:33 PM) Height 98.9 DegF (03/05/18 1:27 PM) Temperature Oral [96.4-99.1 DegF] 126/66 mmHg (03/12/18 7:45 PM) 150/67 mmHg *HI* (03/12/18 6:46 PM) 150/67 mmHg *HI* (03/12/18 6:45 PM) Blood Pressure [90-140/60-90 mmHg] 20 BRMIN (03/12/18 7:45 PM) 26 BRMIN *HI* (03/12/18 6:46 PM) 25 BRMIN *HI* (03/12/18 6:45 PM) Respiratory Rate [14-20 BRMIN] 86 bpm (03/05/18 1:27 PM) Peripheral Pulse Rate [60-100 bpm] 72.727 kg (03/05/18 1:33 PM) Weight 33.51 m2 (03/05/18 1:33 PM) Body Mass Index Problem List Condition Effective Dates Status Health Status Informan t Gastric bypass 11/27/03 Resolved status for obesity(Confirmed) Allergies, Adverse Reactions, Alerts Substance Reaction Severity Status Darvon Active Demerol HCl Active Medications acetaminophen-hydrocodone 325 mg-10 mg oral tablet 1 tab, Route: PO, Dosing Weight 72.727, kg, Q4H, PRN Pain Score 4-6, Start date: 03/12/18 19:36:00 CDT, Duration: 30 day, Stop date: 04/11/18 19:35:00 CDT Start Date: 03/12/18 Stop Date: 03/12/18 Status: Discontinued ceFAZolin (ANES) Route: IV, Drug form: INJ, ONCE, Stop date: 03/12/18 17:33:00 CDT Start Date: 03/12/18 Stop Date: 03/12/18 Status: Completed ceFAZolin + sterile water 20 mL 2 gm, Route: IV, ONCALL, Start date: 03/12/18 7:00:00 CDT, Duration: 1 day, Stop date: 03/13/18 6:59:00 CDT, ABX Indication: Surgical Prophylaxis Notes: (Same As: Guerrero Caceres) MEDICATION WASTE Product Size: 1000 mgP roduct Wasted: ___ mg Start Date: 03/12/18 Stop Date: 03/12/18 Status: Discontinued dexamethasone (ANES) Route: IV, Drug form: INJ, ONCE, Stop date: 03/12/18 18:18:00 CDT Start Date: 03/12/18 Stop Date: 03/12/18 Status: Completed fentaNYL (ANES) Route: IV, Drug form: INJ, ONCE, Stop date: 03/12/18 17:28:00 CDT Start Date: 03/12/18 Stop Date: 03/12/18 Status: Completed glycopyrrolate (ANES) Route: IV, Drug form: INJ, ONCE, Stop date: 03/12/18 18:18:00 CDT Start Date: 03/12/18 Stop Date: 03/12/18 Status: Completed Lactated Ringers Injection IV (ANES) 1000 mL Route: IV, Total Volume: 1,000, Start date: 03/12/18 16:15:00 CDT, Stop date: 17:15:00 CDT Start Date: 03/12/18 Stop Date: 03/12/18 Status: Completed Lactated Ringers Injection IV 1,000 mL 1,000 mL, Rate: 25 ml/hr, Infuse over: 40 hr, Route: IV, Dosing Weight 72.727 kg , Total Volume: 1,000, Start date: 03/12/18 10:23:00 CDT, Duration: 30 day, Stop date: 04/11/18 10:22:00 CDT, 1.76, m2 Start Date: 03/12/18 Stop Date: 03/12/18 Status: Discontinued lidocaine (ANES) Route: IV, Drug form: INJ, ONCE, Stop date: 03/12/18 17:33:00 CDT Start Date: 03/12/18 Stop Date: 03/12/18 Status: Completed metoclopramide (ANES) Route: IV, Drug form: INJ, ONCE, Stop date: 03/12/18 17:28:00 CDT Start Date: 03/12/18 Stop Date: 03/12/18 Status: Completed midazolam (ANES) Route: IV, Drug form: SOLN, ONCE, Stop date: 03/12/18 17:28:00 CDT Start Date: 03/12/18 Stop Date: 03/12/18 Status: Completed multivitamin 1 tab, PO, Daily, 0 Refill(s) Start Date: 03/05/18 Status: Ordered neostigmine (ANES) Route: IV, Drug form: INJ, ONCE, Stop date: 03/12/18 18:18:00 CDT Start Date: 03/12/18 Stop Date: 03/12/18 Status: Completed ondansetron (ANES) Route: IV, Drug form: INJ, ONCE, Stop date: 03/12/18 18:18:00 CDT Start Date: 03/12/18 Stop Date: 03/12/18 Status: Completed propofol (ANES) Route: IV, Drug form: INJ, ONCE, Stop date: 03/12/18 17:33:00 CDT Start Date: 03/12/18 Stop Date: 03/12/18 Status: Completed rocuronium (ANES) Route: IV, Drug form: INJ, ONCE, Stop date: 03/12/18 17:33:00 CDT Start Date: 03/12/18 Stop Date: 03/12/18 Status: Completed ropivacaine 0.2% 8 ml/hr, Route: NERVE BLOCK, Dosing Weight 72.727, kg, Continuous, Start date: 0 03/12/18 18:30:00 CDT, Duration: 30 day, Stop date: 04/11/18 18:29:00 CDT Start Date: 03/12/18 Stop Date: 03/12/18 Status: Completed tramadol 50 mg, Route: PO, Drug form: TAB, Q6H, Dosing Weight 72.727, kg, PRN Pain Score 1-3, Start date: 03/12/18 19:36:00 CDT, Duration: 30 day, Stop date: 04/11/18 19 :35:00 CDT Start Date: 03/12/18 Stop Date: 03/12/18 Status: Discontinued vancomycin + Dextrose 5% in Water IV 250 mL 1,000 mg, Route: IVPB, ONCALL, Start date: 03/12/18 7:00:00 CDT, Duration: 1 day , Stop date: 03/13/18 6:59:00 CDT, ABX Indication: Surgical Prophylaxis Notes: TIME CRITICAL MEDICATION(Same As: Vancocin)Infusion rate< 1000 mg: infuse over 1 [id number] - 1500 mg: infuse over 1.5 [id number] - 2000 mg: infuse over 2 hours> 2001 mg: infuse over 2.5 hoursFor adult patients only: Round to nearest 250 mg per Medical Staff approval MEDICATION WASTE Product Size: 1000 mgProduct Wasted: ___ mg Start Date: 03/12/18 Stop Date: 03/12/18 Status: Completed Results No data available for this section [...]
--- OUTSIDE RECORDS SUMMARY | 2020-07-05 21:45 | XMS REPORT ---
Author Author ALICIA JACKSON Organization Unknown Address Unknown Phone Care Team Providers Care Recording Studio Set Up Worker Name Role Phone BON JACKSON PP Unavailable Reason for Referral No Reason for Referral was given. History of Present Illness No HPI available. Problems * Normal Routine History And Physical Senior Citizen (65-80) (V70.0); ( Active) * Edema (782.3); (Active) * Abnormal Blood Chemistry (790.6); (Active) * Alcohol Abuse (305.00); (Active) * Hypokalemia (276.8); (Active) Medication * Calcium + D TABS; TAKE 1 TABLET DAILY. (Active) * B-12 CAPS; one tab daily (Active) * Vitamin B6 250 MG Oral Tablet; TAKE 1 TABLET DAILY DIRECTED.; Start Date: 02/12/2014; End Date: (Active) * TraMADol HCl 50 MG Oral Tablet; TAKE 1 TABLET 4 TIMES DAILY NEEDED. (Active) Allergies and Adverse Reactions * Darvon [...] CT Abd Liver Protocol w/wo IV contrast [id number] 02/12/2014 Routine Advance Directives * No Advance Directives available. Encounters * AUDIT 03/01/2014 * ECL, Provider: KJ SANFORD, Status: Carlos, Time: 10:00 AM 03/11/2014
--- OUTSIDE RECORDS SUMMARY | 2020-07-05 21:45 | XMS REPORT ---
Author ALICIA Gr Organization Unknown Address Unknown Phone Care Team Providers Care Director Of Software Engineering Name Role Phone Naz Plasencia PP Unavailable Reason for Referral No Reason [...] CT Abd Liver Protocol w/wo IV contrast [id number] 02/12/2014 Routine * [QLH] MAGNESIUM 03/04/2014 Routine * [QL] CMP W/EGFR 03/04/2014 Routine Advance Directives * No Advance Directives available. Encounters * AUDIT 03/04/2014 * ECL, Provider: KJ SANFORD, Status: Carlos, Time: 10:00 AM 03/11/2014 * FUP, Provider: BON JACKSON, Status: Carlos, Time: 9:45 AM 03/24/2014
--- OUTSIDE RECORDS SUMMARY | 2020-07-05 21:45 | XMS REPORT | Summary of Care ---
Author Organization Unknown Address Unknown Phone Unavailable Care Team Providers Care City Jailer Name Role Phone Abilio Alexandra PCP Encounter HQ Zuleyma(SUHAS) [id number] Date(s): 08/19/14 - 08/19/[address] Discharge Disposition: Home Physician Attending: Abilio Alexandra MD Physician_Referring: Abilio Alexandra MD Reason for Visit CIRRHOSIS OF LIVER WITHOUT MENTION OF ALCOHOL Vital Signs Most recent to 1 oldest [Reference Range]: Height 149 cm (08/19/14 11:53 AM) Systolic Blood 168 mmHg Pressure [90-140 *HI* mmHg] (08/19/14 11:53 AM) Diastolic Blood 88 mmHg Pressure [60-90 (08/19/14 11:53 AM) mmHg] Respiratory Rate 16 BRMIN [14-20 BRMIN] (08/19/14 11:53 AM) Peripheral Pulse 73 bpm Rate [60-100 bpm] (08/19/14 11:53 AM) Weight 63.3 kg (08/19/14 11:53 AM) Body Mass Index 28.51 m2 (08/19/14 11:53 AM) Problem List Condition Effective Dates Status [...]
--- OUTSIDE RECORDS SUMMARY | 2020-07-05 21:45 | XMS REPORT | Summary of Care ---
Author Author [facility] Outpatient Imaging - [facility] Organization [facility] Outpatient Imaging - [facility] Address Unknown Phone Unavailable Encounter HQ Zuleyma(FIN) [id number] Date(s): 02/01/18 - 02/01/18 [facility] Outpatient Imaging - [place] [address] [place] [phone] Encounter Diagnosis Pain in right shoulder (Final) - 02/07/18 Primary osteoarthritis, right shoulder (Final) - Unspecified rotator cuff tear or rupture of right shoulder, not specified as tra umatic (Final) - Bursitis of right shoulder (Final) - Discharge Disposition: Home or Self Care Attending [...]
--- OUTSIDE RECORDS SUMMARY | 2020-07-05 21:45 | XMS REPORT | Summary of Care ---
Author Author [facility] Outpatient Imaging - [facility] Organization [facility] Outpatient Imaging [facility] Address Unknown Phone Unavailable Encounter HQ Zuleyma(FIN) [id number] Date(s): 01/15/18 - 01/15/18 [facility] Outpatient Imaging [address] [place] [phone] Encounter Diagnosis Pain in right shoulder (Final) - 01/18/18 Discharge Disposition: Home or Self Care Attending [...]
--- OUTSIDE RECORDS SUMMARY | 2020-07-05 21:45 | XMS REPORT | Summary of Care ---
Author Organization Unknown Address Unknown Phone Unavailable Care Team Providers Care Spinning Bath Person Name Role Phone Abilio Alexandra PCP Encounter Dates Location Diagnoses Discharge Providers Disposition 02/19/2014 [facility] Home Abilio Herrera - [address] [facility] Physician, Non As sociated 02/19/[address] Reason for Visit ENLARGED LIVER, ELEVATED BILIRUBIN Vital Signs Most recent to 1 oldest [Reference Range]: Height 147 cm (02/19/2014 09:01:00 [facility]) Systolic Blood 91 mmHg Pressure [90-140 (02/19/2014 09:01:00 [facility]) mmHg] Diastolic Blood 65 mmHg Pressure [60-90 (02/19/2014 09:01:00 [facility]) mmHg] Respiratory Rate 16 BRMIN [14-20 BRMIN] (02/19/2014 09:01:00 [facility]) Peripheral Pulse 99 bpm Rate [60-100 bpm] (02/19/2014 09:01:00 [facility]) Weight 61.4 kg (02/19/2014 09:01:00 [facility]) Body Mass Index 28.41 m2 (02/19/2014 09:01:00 [facility]) Problem List Condition Effective Dates Status Health Status Informan t Gastric bypass 11/27/2003 Resolved status for obesity(Confirmed) Allergies, Adverse Reactions, Alerts No data available for this section Medications Medication Instructions Start Date Stop Date Status Librax oral capsule 1 cap, PO, Bedtime, # 30 cap, 0 4 Ordered Refill(s) Mag-Ox 400 oral = 400 mg, PO, BID, # 10 tab, 0 02/21/2014 04/0 12/2013 Ordered tablet Refill(s), Pharmacy: [facility] [id number] Vitamin D 0 Refill(s) 02/19/2014 Ordered Medications Administered During Your Visit No data available for this section Immunizations No data available for this section Social History Social History Type Response Alcohol Past, Type Wine, Liquor. L ast use: 3 weeks ago. Previous treatment: None. Alcohol use interferes with work or home: No. Smoking Status Use: Never smoker. Tobacco smoke exposure: None. Did the Patient Smoke Cigarettes Anytim e During the Last 365 Days? No. Cessation Couns eling Provided? No.
--- OUTSIDE RECORDS SUMMARY | 2020-07-05 21:46 | XMS REPORT | Summary of Care ---
Author ALICIA [facility] Unknown Address Unknown Phone Unavailable Care Team Providers Care Equipment Operator Wage Hand Name Role Phone DAVID Priest, RUBINA Unavailable Unavailable RENETTA CUNHA CA, BON PEACE Unavailable Unavailable BON JACKSON MD Unavailable Unavailable DAVID CUNHA CA, RUBINA JORGE Unavailable Unavailable RENETTA Priest, BON Unavailable Unavailable Elías Owens MD Unavailable Unavailable Unavailable Unavailable Functional Status Name Dates Details Functional status health issues are not documented Status: Name Dates Details Cognitive status health issues are not d ocumented Status: Problems Name Dates Details Edema (782.3, R60.9) Status: Active Need for influenza vaccination (V04.81, Z23) Status: Active De Quervain's tenosynovitis (727.04, M65 .4) Status: Active Conjunctivitis, acute (372.00, H10.30) Status: Active Breast screening (V76.10, Z12.39) Status: Active Screening for colon cancer (V76.51, Z12. 11) Status: Active Menopause (627.2, Z78.0) Status: Active Hypokalemia (276.8, E87.6) Status: Active Need for vaccination with 13-polyvalent pneumococcal conjugate vaccine (V03.82, Z23) Status: Active Decreased platelet count (287.5, D69.6) Status: Active Thrombocytopenia (287.5, D69.6) Status: Active Macrocytosis (289.89, D75.89) Status: Active Screening for osteoporosis (V82.81, Z13. 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 80, R92.8) Status: Active Benign essential hypertension (401.1, I1 0) Status: Active Hypercholesterolemia (272.0, E78.00) Status: Active Influenza vaccine refused (V64.06, Z28.2 1) Status: Active Acute bilateral low back pain without sc iatica (724.2, M54.5) Status: Active Elevated hemidiaphragm (519.4, J98.6) Status: Active Well woman exam with routine gynecologic al exam (V72.31, Z01.419) Status: Active Acquired hypothyroidism (244.9, E03.9) Status: Active Cholecystitis (575.10, K81.9) Status: Active Abnormal blood chemistry (790.6, R79.9) Status: Active Acute UTI (599.0, N39.0) Status: Active Alcohol abuse (305.00, F10.10) Status: Active Swelling of both lower extremities (729. 81, M79.89) Status: Active Weight loss, abnormal (783.21, R63.4) Status: Active Abdominal pain (789.00, R10.9) Status: Active Anemia (285.9, D64.9) Status: Active Chronic right shoulder pain (719.41, M25 .511) Status: Active Injury of right rotator cuff, initial en counter (959.2, S46.001A) Status: Active Complete tear of right rotator cuff (727 .61, M75.121) Status: Active Medications Name Dates Details Multi-Vitamin Gummies Oral Tablet Chewab le CHEW AND SWALLOW 1 TABLET DAILY. M.A. * Start : 08-Jul-2016 Active Caltrate 600+D3 Soft CHEW TAKE 1 TABLET DAILY * Refills: 0 M.A. Active Folic Acid 1 MG Oral Tablet TAKE 1 TABLET DAILY DIRECTED. * Refills: 0 M.A. Active Magnesium 400 MG CAPS 1 tab bid * Refills: 0 M.A. Active Pantoprazole Sodium 40 MG Intravenous Solution Reconstituted 1 tab qd * Refills: 0 M.A. Active Thiamine HCl - 100 MG Oral Tablet TAKE 1 TABLET DAILY. * Refills: 0 M.A. Active HYDROcodone-Acetaminophen 7.5-325 MG Oral Tablet TAKE 1 TABLET EVERY 4 TO 6 HOURS NEEDED FOR PAIN. * Quantity: 60 Refills: 0 DAVID M.D., RUBINA * Start : 03-May-2019 Active traMADol HCl - 50 MG Oral Tablet TAKE 1 TABLET EVERY 4 TO 6 HOURS NEEDED FOR PAIN. * Quantity: 60 Refills: 1 DAVID M.D., RUBINA * Start : 03-May-2019 Active Allergies and Adverse Reactions Name Dates Details Darvocet-N 100 TABS (Allergy) Status: Ac tive Darvon CAPS (Allergy) Status: Active Demerol TABS (Allergy) Status: Active Past Medical History Name Dates Details History of edema (V13.89, Z87.898) Status: Resolved History of hiatal hernia (V12.79, Z87.19 ) Status: Resolved History of pharyngitis (V12.69, Z87.09) Status: Resolved Personal history of asthma (V12.69, Z87. 09) Status: Resolved Procedures Procedure Dates Details History of Hysterectomy Completed History of Tonsillectomy With Adenoidectomy Completed History of Bladder Procedures Completed History of Gastric Surgery For Morbid Obesity Gastric Bypass Completed History of Shoulder Surgery Completed History of Appendectomy Completed History of Elbow Surgery Completed History of Complete Colonoscopy Complete d Immunization Name Dates Details Fluzone INJ Lot #: [id number] on: 03-Dec-2014 Prevnar 13 Intramuscular Suspension Lot #: [id number] on: 23-Jun-2016 Family History Name Dates Details Family history of Stroke Syndrome (V17.1 ) Status: Active Name Dates Details Family history of Coronary Artery Diseas e (V17.49) Status: Active Social History Name Dates Details - Status: Name Dates Details Never smoked tobacco (finding) Vital Signs Date Test Result Details No Known Vitals to report Results Date Description Value Details Results not documented Plan of Care Name Dates Details Planned Observations Planned Goals not documented Instructions Name Dates Details Instructions not documented Encounters Appointment; BON JACKSON M.D. Encounter Diagnosis: Problem not documented On: 15-Mar-2019 8:30 Appointment; RUBINA HERNANDEZ M.D. Encounter Diagnosis: Problem not documented On: 16-Apr-2019 13:30 Appointment; RUBINA HERNANDEZ M.D. Encounter Diagnosis: Problem not documented On: 29-Apr-2019 8:00 Appointment; RUBINA HERNANDEZ M.D. Encounter Diagnosis: Problem not documented On: 09-May-2019 11:00 Appointment; RUBINA HERNANDEZ M.D. Encounter Diagnosis: Problem not documented On: 16-May-2019 11:00 Appointment; RUBINA HERNANDEZ M.D. Encounter Diagnosis: Problem not documented On: 13-Jun-2019 14:45 Appointment; RUBINA HERNANDEZ M.D. Encounter Diagnosis: Problem not documented On: 18-Jun-2019 14:30 Appointment; RUBINA HERNANDEZ M.D. Encounter Diagnosis: Problem not documented On: 25-Jul-2019 13:15
--- OUTSIDE RECORDS SUMMARY | 2020-07-05 21:46 | XMS REPORT | Summary of Care ---
Author Author ALICIA Becerra Organization Unknown Address Unknown Phone Unavailable Care Team Providers Care Machine Shop Supervisor Name Role Phone DAVID Priest, RUBINA Unavailable Unavailable Jesus Alberto Becerra Unavailable Unavailable RENETTA CUNHA MT, BON PEACE Unavailable Unavailable RENETTA CUNHA, BON PEOPLES Unavailable Unavailable DAVID CUNHA MT, RUBINA JORGE Unavailable Unavailable RENETTA Priest, BON Murry Unavailable Graciela CUNHA, Elías Unavailable Unavailable Unavailable Unavailable Functional Status Name [...] le CHEW AND SWALLOW 1 TABLET DAILY. * Start : 08-Jul-2016 Active Caltrate 600+D3 Soft CHEW TAKE 1 TABLET DAILY * Refills: 0 Active Folic Acid 1 MG Oral Tablet TAKE 1 TABLET DAILY DIRECTED. * Refills: 0 Active Magnesium 400 MG CAPS 1 tab bid * Refills: 0 Active Pantoprazole Sodium 40 MG Intravenous Solution Reconstituted 1 tab qd * Refills: 0 Active Thiamine HCl - 100 MG Oral Tablet TAKE 1 TABLET DAILY. * Refills: 0 Active HYDROcodone-Acetaminophen 7.5-325 MG Oral Tablet TAKE 1 TABLET EVERY 4 TO 6 HOURS NEEDED FOR PAIN. * Quantity: 60 Refills: 0 DAVID M.RUBINA Irby * Start : 03-May-2019 Active traMADol HCl - 50 MG Oral Tablet TAKE 1 TABLET EVERY 4 TO 6 HOURS NEEDED FOR PAIN. * Quantity: 60 Refills: 1 DAVID M.DLisa, RUBINA * Start : 03-May-2019 Active Allergies [...] Name Dates Details Fluzone INJ Lot #: [id number] on: 03-Dec-2014 Prevnar 13 Intramuscular Suspension Lot #: [id number] on: 23-Jun-2016 Family History Name Dates Details [...] Dates Details Instructions not documented Encounters Appointment; RUBINA HERNANDEZ M.D. Encounter Diagnosis: Problem not documented On: 20-Mar-2018 9:00 Appointment; RUBINA HERNANDEZ M.D. Encounter Diagnosis: Problem not documented On: 27-Mar-2018 9:00 Appointment; BON JACKSON M.D. Encounter Diagnosis: Problem [...]
--- OUTSIDE RECORDS SUMMARY | 2020-07-05 21:46 | XMS REPORT | Continuity of Care Document ---
Author Author [facility] t Organization [facility] Address [facility] Sriram Johnson [address] [place] [address] Phone Unavailable Care Team Providers Care Agency Cashier Name Role Phone Lia GARCIA Attphys Unavailable Zev Hernandez Attphys RUBINA HERNANDEZ M.D. Attphys Unavailable Nata Weston Attphys BON WESTON M.D. Attphys Unavailable ELÍAS CANNON M.D. Attphys Unavailable Oskar Cannon Attphys [facility] Attphys Unavailable Angie Weston Attphys BENJAMIN CAMPOS NP Attphys Unavailable Bao Baron M.D. Attphys Unavailable Bianca Bailey Attphys Sammy Alexandra Attphys Payers Payer Name Policy Type Policy Number Effective Date Expiration Date S ource Problems Condition Name Condition Details Condition Category Status Onset Date Resolution Date Last Treatment Date Treating Clinician Comments Source SUSI GOLDMAN Active 02/27/2018 JUAN Chávez [facility] Diagnosis Active 2018-02-27 00:00:00 2018-03-05 12:25:00 Miladys Bhatia ROTATOR CUFF, RT SHOULDER ROTA TOR CUFF, RT SHOULDER Active 02/27/2018 Miladys Bhatia Diagnosis Active 2018-02-27 00:00: 00 2018-03-12 09:55:00 Miladys Bhatia RT SHOULDER RT S HOULDER Active 02/25/2018 [facility] [place] Diagnosis Active 2018-02-25 08:00:00 2019-06-27 11:12:00 Miladys Bhatia R79.9 - ABNORMAL FINDING OF BLOOD CHEM R79.9 - ABNORMAL FINDING OF BLOOD CHEM Active 05/05/2017 Miladys Bhatia Diagnosis Active 2017-05-05 00:01:00 2017-05-05 09:41:00 M meg Bhatia DDC-6 MONTH F/U VISIT DDC- 6 MONTH F/U VISIT Active 08/19/2014 [facility] Diagnosis Active 2014-08-19 00:00:00 2015-03-29 15:19:00 Miladys Bhatia CIRRHOSIS OF LIVER WITHOUT MENTION OF AL CIRRHOSIS OF LIVER WITHOUT MENTION OF AL Active 05/20/2014 [facility] Diagnosis Active 2014-05-20 00:00:00 2014-08-21 08:43:00 Miladys Bhatia 3 MONTH F/U 3 MO NTH F/U Active 03/25/2014 [facility] Diagnosis Active 2014-03-25 00:00:00 2014-05-20 10:24:00 Miladys Bhatia ENLARGED LIVER, ELEVATED BILIRUBIN ENLARGED LIVER, ELEVATED BILIRUBIN Active 02/17/2014 [facility] Diagnosis Active 2014-02-17 00:00:00 2014-02-19 08:51:00 Miladys Bhatia History of edema History of edema Problem Resolved [facility] History of hiatal hernia History of hiatal hernia Problem Resolved [facility] History of pharyngitis History of pharyngitis Problem Resolved [facility] Personal history of asthma Personal history of asthma Problem Resolved [facility] Edema Edema Problem Active [facility] Need for influenza vaccination Need for influenza vaccination Problem Active [facility] De Quervain's tenosynovitis De Quervain's tenosynovitis Problem Active [facility] Conjunctivitis, acute Conjunctivitis, acute Problem Active [facility] Well woman exam with routine gynecological exam Well w lidia exam with routine gynecological exam Problem Active [facility] Menopause Menopause Problem Active [facility] Hypokalemia Hypokalemia Problem Active [facility] Need for vaccination with 13-polyvalent pneumococcal c onjugate vaccine Need for vaccination with 13-polyvalent pneumococcal conjugate vaccine Problem Ac tive [facility] Thrombocytopenia Thrombocytopenia Problem Active [facility] Macrocytosis Macrocytosis Problem Active [facility] Artificial menopause state Artificial menopause state Problem Active [facility] Abnormal mammogram of both breasts Abnormal mammogram of both br easts Problem Active [facility] Benign essential hypertension Benign essential hypertension Problem Active [facility] Hypercholesterolemia Hypercholesterolemia Problem Active [facility] Influenza vaccine refused Influenza vaccine refused Problem Active [facility] Acute bilateral low back pain without sciatica Acute b ilateral low back pain without sciatica Problem Active [facility] Elevated hemidiaphragm Elevated hemidiaphragm Problem Active [facility] Acquired hypothyroidism Acquired hypothyroidism Problem Active [facility] Cholecystitis Cholecystitis Problem Active [facility] Abnormal blood chemistry Abnormal blood chemistry Problem Active [facility] Acute UTI Acute UTI Problem Active [facility] Alcohol abuse Alcohol abuse Problem Active [facility] Weight loss, abnormal Weight loss, abnormal Problem Active [facility] Abdominal pain Abdominal pain Problem Active [facility] Anemia Anemia Problem Active [facility] Chronic right shoulder pain Chronic right shoulder pain Problem Active [facility] Complete tear of right rotator cuff Complete tear of right rotat or cuff Problem Active [facility] Swelling of both lower extremities Swelling of both lower extrem ities Problem Active [facility] Injury of right rotator cuff, initial encounter Injury of right rotator cuff, initial encounter Problem Active [facility] Primary osteoarthritis, right shoulder Primary osteoarthritis, right shoulder 05/11/2018 [facility] [place] Problem 2018-05-11 12:32:34 Miladys Bhatia Unspecified rotator cuff tear or rupture of right shoulder, not specified as traumatic Unspecified rota tor cuff tear or rupture of right shoulder, not specified as traumatic 05/11/2018 [facility] [place] Problem 2018-05-11 12:32:34 Dameon Bhatia Bursitis of right shoulder Bur sitis of right shoulder 05/11/2018 [facility] [place] Problem 2018-05-11 12:32:34 Miladys Bhatia Edema Jensen a Active 03/25/2014 [facility] Problem Active 2014-03-25 22:03:21 Dameon Bhatia Abnormal Blood Chemistry Abno rmal Blood Chemistry Active 03/25/2014 [facility] Problem Active 2014-03-25 22:03: 21 [facility] Alcohol Abuse Alco hol Abuse Active 03/25/2014 [facility] Problem Active 2014-03-25 22:03:21 Brett weaver Sriram Hypokalemia Hypo kalemia Active 03/25/2014 [facility] Problem Active 2014-03-25 [facility]:03:21 [facility] Pain in right shoulder 02/08/2018 05/11/2018 [facility] [place] Problem 20 11-02-15 04:30:56 2018-05-11 12:32:34 2018-05-11 12:32:34 [facility] History of Past Illness Condition Name Condition Details Condition Category Status Onset Date Resolution Date Last Treatment Date Treating Clinician Comments Source Gastric band attached (finding) Gastric band attached (finding) Resolved 11/27/2003 Problem 07/28/2019 [facility], [facility] [place],[facility] Problem Resolved 2003-11-27 00:00:00 2019-07-28 23:20:3 1 2019-07-28 23:20:31 [facility] Gastric bypass status for obesity(Confirmed) Gastric bypass status for obesity(Confirmed) Resolved 11/27/2003 Problem 02/21/2014 [facility] Problem Resolved 2003-11-27 00:00:00 2 22:32:57 2014-02-21 22:32:57 [facility] Allergies, Adverse Reactions, Alerts Allergy Name Allergy Type Status Severity Reaction(s) Onset Date Inacti ve Date Treating Clinician Comments Source propoxyphene DA Active [place] 2015-08-07 00:00:00 [facility] acetaminophen DA Active [place] 2015-08-07 00:00:00 [facility] meperidine DA Active [place] 2015-08-07 00:00:00 [facility] Demerol TABS Allergy to drug (finding) Active [facility] Satish-N 100 TABS Allergy to drug (finding) Active [facility] Pavan PERKINS Allergy to drug (finding) Active [facility] Pavan Browne Active [facility] Demerol HCl Demerol HCl Active [facility] Darvon CAPS Darvon CAPS Active [facility] Sriram Darvocet-N 100 TABS Darvocet-N 100 TABS Active [facility] Sriram Demerol TABS Demerol TABS Active [facility] Sriram No Known Drug Allergies No Known Drug Allergies Active Miladys Bhatia Family History Family Member Diagnosis Comments Start Date Stop Date Source Mother Family history of Stroke Syndrome [facility] Father Family history of Coronary Artery Disease [facility] Unknown Family Member Family History 2014-02-13 19:51:20 2 19:51:20 Miladys Bhatia Social History Social Habit Start Date Stop Date Quantity Comments Source Social History 2014-02-19 14:08:35 2014-02-19 14:08:35 [facility] Sriram Smoking Status Start Date Stop Date Source Never smoked tobacco (finding) [facility] Medications Ordered Medication Name Filled Medication Name Start Date Stop Da te Current Medication? Ordering Clinician Indication Dosage Frequency Signature (SIG) Comments Components Source HYDROcodone-Acetaminophen 7.5-325 MG Oral Tablet HYDRO codone-Acetaminophen 7.5- 325 MG Oral Tablet 2019-05-03 00:00:00 Yes RUBINA HERNANDEZ M.D. TAKE 1 TABLET EVERY 4 TO 6 HOU[address] NEED[address] PAIN. [facility] traMADol HCl - 50 MG Oral Tablet traMADol HCl - 50 MG Oral T ablet 2019-05-03 00:00:00 Yes RUBINA HERNANDEZ M.D. TAKE 1 TABLET EVERY 4 TO 6 HOURS NEEDED FOR PAIN. [facility] Tramadol 2018-03-13 00:36:00 No 50 mg, Route: PO, Drug form: TAB, Q6H, Dosing Weight 72.727, kg, PRN Pain Score 1-3, Start date: 03/12/18 19:36:00 CDT, Duration: 30 day, Stop date: 04/11/18 19:35:00 CDT [facility] Sriram Acetaminophen 325 MG / Hydrocodone Bitartrate 10 MG Oral Tab let 2018-03-13 00:36:00 No 1 tab, Rou te: PO, Dosing Weight 72.727, kg, Q4H, PRN Pain Score 4-6, Start date: 03/12/18 19:36:00 CDT, Duration: 30 day, Stop date: 04/11/18 19:35:00 CDT [facility] ropivacaine 0.2% 2018-03-12 23:30:00 No 8 ml/hr, Route: NERVE BLOCK, Dosing Weight 72.727, kg, Continuous, Start date: 03/12/18 18:30:00 CDT, Duration: 30 day, Stop date: 04/11/18 18:29:00 CDT [facility] neostigmine ([facility]) 2018-03-12 23:18:00 No Route: IV, Drug form: INJ, ONCE, Stop date: 03/12/18 18:18:[address] [facility] glycopyrrolate ([facility]) 2018-03-12 23:18:00 No Route: IV, Drug form: INJ, ONCE, Stop date: 03/12/18 18:18:00 CDT [facility] dexamethasone ([facility]) 2018-03-12 23:18:00 No Route: IV, Drug form: INJ, ONCE, Stop date: 03/12/18 18:18:00 CDT [facility] ondansetron ([facility]) 2018-03-12 23:18:00 No Route: IV, Drug form: INJ, ONCE, Stop date: 03/12/18 18:18:[address] [facility] ceFAZolin ([facility]) 2018-03-12 22:33:00 No Route: IV, Drug form: INJ, ONCE, Stop date: 03/12/18 17:33:[address] [facility] lidocaine ([facility]) 2018-03-12 22:33:00 No Route: IV, Drug form: INJ, ONCE, Stop date: 03/12/18 17:33:[address] [facility] propofol ([facility]) 2018-03-12 22:33:00 No Route: IV, Drug form: INJ, ONCE, Stop date: 03/12/18 17:33:[address] [facility] rocuronium ([facility]) 2018-03-12 22:33:00 No Route: IV, Drug form: INJ, ONCE, Stop date: 03/12/18 17:33:[address] [facility] midazolam ([facility]) 2018-03-12 22:28:00 No Route: IV, Drug form: SOLN, ONCE, Stop date: 03/12/18 17:28:00 CDT Brett Bhatia fentaNYL (ANES) 2018-03-12 22:28:00 No Route: IV, Drug form: INJ, ONCE, Stop date: 03/12/18 17:28:00 CDT Brett Bhatia metoclopramide (ANES) 2018-03-12 22:28:00 No Route: IV, Drug form: INJ, ONCE, Stop date: 03/12/18 17:28:00 CDT Miladys Monsalveann Lactated Ringers Injection IV (ANES) 1000 mL 2018-03-12 21:15:00 No Route: IV, Total Volume: 1,000, Start date: 03/12/18 16:15:00 CDT, Stop date: 03/12/18 17:15:00 CDT Miladys Bhatia Calcium Chloride 0.0014 MEQ/ML / Potassi um Chloride 0.004 MEQ/ML / Sodium Chloride 0.103 MEQ/ML / Sodium Lactate 0.028 MEQ/ML Injectable Solution 2018-03-12 15:23:00 No 1,000 mL, Rate: 25 ml/hr, Infuse over: 40 hr, Route: IV, Dosing Weight 72.727 kg, Total Volume: 1,000, Start date: 03/12/18 10:23:00 CDT, Duration: 30 day, Stop date: 04/11/18 10:22:00 CDT, 1.76, m2 Miladys Bhatia vancomycin + Dextrose 5% in Water IV 250 mL 2018-03-12 12:00:00 No 2001 mg: infuse over 2.5 hours For adult patients only: Round to nearest 250 mg per Medical Staff approval MEDICATION WASTE Product Size: 1000 mg Product Wasted: ___ mg Miladys Bhatia ceFAZolin + sterile water 20 mL 2018-03-12 12:00:00 No Notes: (Same As: Guerrero Caceres) MEDICATION WASTE Product Size: 1000 mg Product Wasted: ___ mg Miladys Bhatia multivitamin 2018-03-05 18:32:00 Yes 1 tab, PO, Daily, 0 Refill(s) Miladys Bhatia Albuterol 0.833 MG/ML / Ipratropium [place] 0.167 MG/ML Inha lant Solution 2017-08-04 15:24:00 Yes Notes: (Same as: Tory giraldo) Miladys Bhatia Sodium Chloride 0.9% IV 500 mL 2017-08-04 15:24:00 No 500 mL, Rate: 25 ml/hr, Infuse over: 20 hr, Route: IV, Dosing Weight 62.273 kg, Total Volume: 500, Start date: 08/04/17 10:24:00 CDT, Duration: 30 day, Stop date: 09/03/17 10:23:00 CDT Miladys Bhatia Calcium Carbonate 1500 MG / Cholecalcife rol 800 UNT Oral Tablet [Caltrate Plus D 600/800] 2017-08-04 15:12:00 Yes 1 tab, P O, Daily, 0 Refill(s) Miladys Bhatia Furosemide 20 MG Oral Tablet 2017-08-04 15:12:00 Yes See Instructions, 1 tab PO Daily, 0 Refill(s) Miladys Bhatia potassium chloride 10 mEq oral tablet, extended release 2017-08-04 15:11:00 Yes See Instructions, 1 tab PO BID, 0 Refill (s) Miladys Bhatia levothyroxine 50 mcg (0.05 mg) oral tablet 2017-08-04 15:03:00 Yes 50 microgram = 1 tab, PO, Daily, # 30 tab, 0 Refill(s) Miladys Bhatia Multi-Vitamin Gummies Oral Tablet Chewable Multi-Vitam in Gummies Oral Tablet Chewable 2016-07-08 00:00:00 Yes M.A. QD ROSARIO W AND SWALLOW 1 TABLET DAILY. [facility] Vitamin B12 2014-05-20 15:48:00 Yes PO, 0 Re fill(s) Miladys Bhatia Calcium + D TABS 2014-03-25 22:03:21 Yes (A ctive) Miladys Bhatia B-12 CAPS 2014-03-04 20:21:36 Yes (Active) Miladys Bhatia TraMADol HCl 50 MG Oral Tablet 2014-03-04 20:21:36 Yes (Active) Miladys Bhatia Mag-Ox 400 oral tablet 2014-02-21 15:41:00 Yes = 400 mg, PO, BID, # 10 tab, 0 Refill(s), Pharmacy: [facility] [id number] Miladys Bhatia Vitamin D 2014-02-19 14:55:00 Yes 0 Refill(s ) Miladys Bhatia Chlordiazepoxide Hydrochloride 5 MG / Cl idinium bromide 2.5 MG Oral Capsule [Librax] 2014-02-19 14:42:00 Yes 1 cap, PO, Bedtime, # 30 cap, 0 Refill(s) Miladys Sriram Vitamin B6 250 MG Oral Tablet 2014-02-12 05:00:00 Yes ; Start Date: 02/12/2014; End Date: (Active) Miladys Bhatia Caltrate 600+D3 Soft CHEW Caltrate 600+D3 Soft CHEW Yes M.A. 1 QD TAKE 1 TABLET DAILY [facility] Folic Acid 1 MG Oral Tablet Folic Acid 1 MG Oral Tablet Yes M.A. QD TAKE 1 TABLET DAILY DIRECTED. [facility] Magnesium 400 MG CAPS Magnesium 400 MG CAPS Yes M.A. 1 tab bid [facility] Pantoprazole Sodium 40 MG Intravenous Solution Reconst ituted Pantoprazole Sodium 40 MG Intravenous Solution Reconstituted Yes M.A. 1 tab qd [facility] Thiamine HCl - 100 MG Oral Tablet Thiamine HCl - 100 MG Oral Tablet Yes M.A. 1 QD TAKE 1 TABLET DAILY. [facility] Immunizations Ordered Immunization Name Filled Immunization Name Date Status Comments Source Prevnar 13 Intramuscular Suspension 2016-06-23 09:39:00 Co mpleted [facility] Fluzone INJ 2014-12-03 16:25:00 Completed [facility] Vital Signs Vital Name Observation Time Observation Value Comments Source BP Systolic 2019-03-15 08:42:00 131 mm[Hg] Location: LUE; Positi on: Sitting [facility] BP Diastolic 2019-03-15 08:42:00 78 mm[Hg] Location: LUE; Positi on: Sitting [facility] Heart Rate 2019-03-15 08:42:00 80 /min [facility] BP Systolic 2019-03-15 08:41:00 140 mm[Hg] Location: LUE; Positi on: Sitting [facility] BP Diastolic 2019-03-15 08:41:00 81 mm[Hg] Location: BLOSSOME; Positi on: Sitting [facility] Heart Rate 2019-03-15 08:41:00 76 /min [facility] Height 2019-03-15 08:41:00 58.5 [in_us] [facility] Weight 2019-03-15 08:41:00 165.5 [lb_av] [facility] Body Mass Index Calculated 2019-03-15 08:41:00 34 kg/m2 [facility] Temperature 2019-03-15 08:41:00 98.4 [degF] Method: Temporal [facility] Respiration Rate 2019-03-15 08:41:00 16 /min [facility] Respitory Rate 2018-03-13 00:45:00 Memori al Sriram Systolic (mm Hg) 2018-03-13 00:45:00 Berry rial [place] Diastolic (mm Hg) 2018-03-13 00:45:00 Mem orial [place] Respitory Rate 2018-03-12 23:46:00 Memori al [place] Systolic (mm Hg) 2018-03-12 23:46:00 Berry rial Sriram Diastolic (mm Hg) 2018-03-12 23:46:00 Mem orial Sriram Systolic (mm Hg) 2018-03-12 23:45:00 Berry rial Sriram Diastolic (mm Hg) 2018-03-12 23:45:00 Mem orial Sriram Respitory Rate 2018-03-12 23:45:00 Memori al Sriram BMI Calculated 2018-03-05 18:33:00 Memori al [place] Weight 2018-03-05 18:33:00 [facility] Height 2018-03-05 18:33:00 147.32 cm [facility] Temperature Oral (F) 2018-03-05 18:27:00 98.9 F [facility] Heart Rate 2018-03-05 18:27:00 [facility] Sriram Respitory Rate 2017-08-04 16:30:00 Memori al Sriram Systolic (mm Hg) 2017-08-04 16:30:00 Berry rial Sriram Diastolic (mm Hg) 2017-08-04 16:30:00 Mem orial Sriram Respitory Rate 2017-08-04 16:15:00 Memori al Sriram Systolic (mm Hg) 2017-08-04 16:15:00 Berry rial Sriram Diastolic (mm Hg) 2017-08-04 16:15:00 Mem orial Sriram Respitory Rate 2017-08-04 15:59:00 Memori al [place] Systolic (mm Hg) 2017-08-04 15:59:00 Berry rial Sriram Diastolic (mm Hg) 2017-08-04 15:59:00 Mem orial [place] BMI Calculated 2017-08-03 21:30:00 Memori al Sriram Weight 2017-08-03 21:30:00 [facility] [place] Height 2017-08-03 21:30:00 149.86 cm [facility] Sr[facility]am Respitory Rate 2014-08-19 16:53:00 Memori al [place] Systolic (mm Hg) 2014-08-19 16:53:00 Berry rial [place] Diastolic (mm Hg) 2014-08-19 16:53:00 Mem orial [place] Heart Rate 2014-08-19 16:53:00 [facility] [place] Weight 2014-08-19 16:53:00 [facility] Sr[facility]am BMI Calculated 2014-08-19 16:53:00 Memori al Sriram Height 2014-08-19 16:53:00 149 cm [facility] Sr[facility]am Heart Rate 2014-05-20 15:37:00 [facility] Sr[facility] Respitory Rate 2014-05-20 15:37:00 Memori al Sriram Systolic (mm Hg) 2014-05-20 15:37:00 Berry rial Sriram Diastolic (mm Hg) 2014-05-20 15:37:00 Mem orial Sriram Height 2014-05-20 15:37:00 147 cm [facility] Sriram BMI Calculated 2014-05-20 15:37:00 Memori al [place] Weight 2014-05-20 15:37:00 [facility] Sr[facility] Respitory Rate 2014-02-19 14:01:00 Memori al [place] Systolic (mm Hg) 2014-02-19 14:01:00 Berry rial Sriram Diastolic (mm Hg) 2014-02-19 14:01:00 Mem orial Sriram Height 2014-02-19 14:01:00 147 cm [facility] [place] Heart Rate 2014-02-19 14:01:00 [facility] Sr[facility]am Weight 2014-02-19 14:01:00 [facility] BMI Calculated 2014-02-19 14:01:00 Memori al Sriram Procedures Procedure Date / Time Performed Performing Clinician Sourc e Post Op Promis 29 Survey 2019-06-21 00:00:00 [facility] [U] XRAY SHOULDER MIN 2 VWS RIGHT [id number] 2019-04-15 00:00:00 [facility] MR Shoulder wo contrast [id number] 2019-03-15 00:00:00 [facility] History of Hysterectomy [facility] History of Tonsillectomy With Adenoidectomy [facility] History of Gastric Surgery For Morbid Obesity Gastric Bypass [facility] History of Shoulder Surgery [facility] History of Appendectomy [facility] History of Elbow Surgery [facility] History of Complete Colonoscopy [facility] Abdominal hysterectomy [facility] Abdominoplasty [facility] Bilateral breast implants [facility] [place] Buttock lift [facility] Elbow joint operations [facility] Gastric bypass operation Memoria [facility] [place] Knee joint operation [facility] Shoulder joint operations<sup>1</sup> [facility] Suspension of bladder [facility] Plan of Care Planned Activity Planned Date Details Comments Source Future Scheduled Test 2014-03-25 22:03:21 Plan of Care [code = 1877 6-5] [facility] Future Scheduled Test 2014-03-04 20:21:36 Plan of Care [code = 1877 6-5] [facility] Future Scheduled Test 2014-03-01 18:00:27 Plan of Care [code = 1877 6-5] [facility] Future Scheduled Test 2014-02-13 19:51:20 Plan of Care [code = 1877 6-5] [facility] Encounters Start Date/Time End Date/Time Encounter Type Admission Type Attendi [facility] Care Department Encounter ID Source 2019-06-27 08:00:00 2019-07-26 23:59:00 Outpatient Rubina Hernandez [place] [id number] 2019-07-25 13:15:00 2019-07-25 13:15:00 Appointment; RUBINA HERNANDEZ M .D. MEEKS, EVAN, M.D. [facility] [id number] [facility] 2019-06-18 14:30:00 2019-06-18 14:30:00 Appointment; RUBINA HERNANDEZ M .D. MEEKS, EVAN, M.D. [facility] [id number] 2019-06-13 14:45:00 2019-06-13 14:45:00 Appointment; RUBINA HERNANDEZ M .D. MEEKS, EVAN, M.D. [facility] [id number] [facility] 2019-05-16 11:00:00 2019-05-16 11:00:00 Appointment; RUBINA HERNANDEZ M .D. MEEKS, EVAN, M.D. [facility] Orthopedics [facility] [id number] [facility] 2019-05-09 11:00:00 2019-05-09 11:00:00 Appointment; RUBINA HERNANDEZ M .D. MEEKS, EVAN, M.D. [facility] [id number] [facility] 2019-04-29 08:00:00 2019-04-29 08:00:00 Appointment; RUBINA HERNANDEZ M .D. MEEKS, EVAN, M.D. [facility] [id number] [facility] 2019-04-16 13:30:00 2019-04-16 13:30:00 Appointment; RUBINA HERNANDEZ M .D. MEEKS, EVAN, M.D. [facility] Orthopedics [facility] [id number] [facility] 2019-03-27 12:48:00 2019-03-27 23:59:00 Outpatient [facility] [id number] 2019-03-15 08:30:00 2019-03-15 08:30:00 Appointment; BON [place] M.D. MURPHY, THOMAS, M.D. [facility] [address] [id number] [facility] 2018-04-24 09:00:00 2018-04-24 09:00:00 Appointment; RUBINA HERNANDEZ M .D. MEEKS, EVAN, M.D. [facility] Orthopedics [facility] [id number] [facility] 2018-03-27 09:00:00 2018-03-27 09:00:00 Appointment; RUBINA HERNANDEZ M .D. MEEKS, EVAN, M.D. [facility] Orthopedics [facility] [id number] [facility] 2018-03-20 09:00:00 2018-03-20 09:00:00 Appointment; RUBINA HERNANDEZ M .D. MEEKS, EVAN, M.D. [facility] Orthopedics at [place] [id number] [facility] 2018-03-12 09:55:00 2018-03-12 19:50:[address] [facility]PL [id number] 2018-03-12 08:00:00 2018-03-12 08:00:00 Appointment; RUBINA HERNANDEZ M .D. MEEKS, EVAN, M.D. [facility] Orth[facility] at [place] [id number] [facility] 2018-02-27 13:30:00 2018-02-27 13:30:00 Appointment; RUBINA HERNANDEZ M .D. MEEKS, EVAN, M.D. [facility] Orth[facility] at [place] [id number] [facility] 2018-02-01 15:52:00 2018-02-01 23:59:00 Outpatient Bon Weston MHHOIP MHHOIP [id number] 2018-01-15 12:39:00 2018-01-15 23:59:00 Outpatient Tasia Weston MHOIB MHOIB [id number] 2018-01-15 11:45:00 2018-01-15 11:45:00 Appointment; BON WESTON M.D. MURPHY, THOMAS, M.D. [facility] UTP [id number] [facility] 2017-08-24 14:30:00 2017-08-24 14:30:00 Appointment; ELÍAS CANNON M.D. CATALANO, MARC, M.D. [facility] UTP [id number] [facility] 2017-08-04 09:42:00 2017-08-04 11:38:00 [facility] [id number] 2017-07-18 15:00:00 2017-07-18 15:00:00 Appointment; ELÍAS CANNON M.D. CATALANO, MARC, M.D. [facility] UTP [id number] [facility] 2017-07-12 16:00:00 2017-07-12 16:00:00 Appointment; JUAN CARLOS-MS, Rich ENRIQUEZSHORE-MS, ECHO UTP UTP [id number] [facility] 2017-07-10 12:16:00 2017-07-10 23:59:00 Outpatient Bon Weston [id number] 2017-06-27 14:19:00 2017-06-27 23:59:00 Outpatient Tasia Weston MHOIB OIB [id number] 2017-06-27 12:30:00 2017-06-27 12:30:00 Appointment; BENJAMIN CAMPOS N P BECK, SHERI, NP UTP UTP [id number] [facility] 2017-05-10 08:27:00 2017-05-10 23:59:00 Outpatient Tasia Weston OIB OIB [id number] 2017-05-05 09:29:00 2017-05-05 23:59:00 Outpatient Tasia Weston OIB MHOIB [id number] 2017-05-05 08:15:00 2017-05-05 08:15:00 Appointment; BON WESTON M.D. MURPHY, THOMAS, M.D. UTP UTP [id number] [facility] 2016-08-18 10:30:00 2016-08-18 10:30:00 Appointment; BENJAMIN CAMPOS N P BECK, SHERI, NP UTP UTP [id number] [facility] 2016-07-19 09:45:00 2016-07-19 09:45:00 Appointment; Bao Baron M.D. Quesada, Jorge, M.D. UTP UTP [id number] [facility] 2016-07-14 09:30:00 2016-07-14 09:30:00 Appointment; BENJAMIN CAMPOS N P BECK, SHERI, NP UTP UTP [id number] [facility] 2016-07-08 11:45:00 2016-07-08 11:45:00 Appointment; Bao Baron M.D. Quesada, Jorge, M.D. UTP UTP [id number] [facility] 2016-06-30 08:00:00 2016-06-30 08:00:00 Appointment; BENJAMIN CAMPOS N P BECK, SHERI, NP [facility] UTP [id number] [facility] 2016-06-23 08:30:00 2016-06-23 08:30:00 Appointment; BENJAMIN CAMPOS N P BECK, SHERI, NP [facility] UTP [id number] [facility] 2014-08-26 07:58:00 2014-08-26 23:59:00 Outpatient Elen Murdock i Kimberruben MHIE MHIE [id number] 2014-08-19 11:37:00 2014-08-19 23:59:00 Outpatient Brett Alexandra MHIE MHIE [id number] 2014-05-20 10:16:00 2014-05-20 23:59:00 Outpatient Brett Alexandra MHIE MHIE [id number] 2014-03-25 17:03:21 2014-03-25 17:03:21 Outpatient MHIE MHIE [id number] 2014-03-04 15:21:36 2014-03-04 15:21:36 Outpatient MHIE MHIE [id number] 2014-03-01 13:00:28 2014-03-01 13:00:27 Outpatient MHIE MHIE [id number] 2014-02-19 08:51:00 2014-02-19 23:59:00 Outpatient Brett Alexandra MHIE MHIE [id number] 2014-02-13 14:51:20 2014-02-13 14:51:20 Outpatient MHIE MHIE [id number] Results Test Description Test Time Test Comments Results Result Comments Source CHEST 2 VIEWS 2020-07-05 21:30:00 [place] [address] Patient Name: ALICIA KING MR #: [id number] : 1950 Age/Sex: 69/F Req #: [id number] Adm Physician: Ordered by: GOPI GARCIA MD Report #: [id number] Location: ER Room/Bed: Procedure: [id number] DX/CHEST 2 VIEWS Exam Date: 07/05/20 Exam Time: 2051 REPORT STATUS: Signed EXAMINATION: CHEST 2 VIEWS INDICATION: sob COMPARISON: None FINDINGS: TUBES and LINES: None. LUNGS: Normal lung volumes. Lungs are clear. No consolidations. Eventration of the anterior leaflet of the right hemidiaphragm. PLEURA: No pleural effusion or pneumothorax. HEART AND MEDIASTINUM: The cardiomediastinal silhouette is unremarkable. BONES AND SOFT TISSUES: Bones are demineralized. UPPER ABDOMEN: No free air under the diaphragm. Surgical changes of the gastroesophageal junction. IMPRESSION: No acute thoracic radiographic abnormality. Signed by: Nata Mackay MD on 07/05/2020 9:31 PM Dictated By: NATA MACKAY MD 30 Transcribed By: LANIE on 07/05/202130 COPY TO: GOPI GARCIA MD BASIC METABOLIC PANEL 2020-03-03 03:15:00 Test Item SODIUM (test code = NA) 144 mmol/L 136-145 N POTASSIUM (test code = K) 3.0 mmol/L 3.5-5.1 L CHLORIDE (test code = CL) 108.0 mmol/L 98-107 H CARBON DIOXIDE (test code = CO2) 23.0 mmol/L 21-32 N ANION GAP (test code = GAP) 16.0 10-20 N GLUCOSE (test code = GLU) 86 mg/dL 74-106 N BLOOD UREA NITROGEN (test code = BUN) 8 mg/dL 7-18 N GLOMERULAR FILTRATION RATE (test code = GFR) > 60 mL/min >=60 Estimated GFR by using Modified MDRD formula.Chronic kidney disease is defined as either kidney damageor GFR <60 mL/min/1.73 m2 for >3 months. CREATININE (test code = CREAT) 0.60 mg/dL 0.55-1.02 N Note change in reference range due to change in reagent. BUN/CREATININE RATIO (test code = BUN/CREA) 13.3 10-20 N CALCIUM (test code = CA) 8.2 mg/dL 8.5-10.1 L HEPATIC FUNCTION [id number] 03:15:00* Test Item Value Reference Range Interpretation Comments TOTAL PROTEIN (test code = PROT) 7.2 gram/dL 6.4-8.2 N ALBUMIN (test code = ALB) 3.1 g/dL 3.4-5.0 L GLOBULIN (test code = GLOB) 4.1 gram/dL 2.7-4.2 N ALBUMIN/GLOBULIN RATIO (test code = A/G) 0.8 0.75-1.50 N BILIRUBIN TOTAL (test code = BILT) 0.40 mg/dL 0.0-1.0 N BILIRUBIN DIRECT (test code = BILD) 0.18 mg/dL 0.0-0.20 N SGOT/AST (test code = AST) 28 IUnit/L 15-37 N SGPT/ALT (test code = ALT) 20 IUnit/L 12-78 N ALKALINE PHOSPHATASE TOTAL (test code = ALKP) 97 IUnit/L 45-117 N Note change in reference range due to change in reagent. [id number] 03:15:00* Test Item Value Reference Range Interpretation Comments LIPASE (test code = LIP) 59 U/L 73.0-393.0 L - XR L-SPINE 2/3 [id number] 02:08:00 FAX: Bon Lobo MD [phone] [place]: B St: [facility] FAX: Rubina Maier MD Name: ALICIA KING [facility] : 1950 Age/S: 69/F [address] [facility] Unit #: [id number] Loc: [place] [address] Phys: Rubina Maier MD Acct: [id number] Dis Date: Status: REG ER PHONE #: [phone] Exam Date: 03/03/2020 014 FAX #: [phone] Reason: back pain EXAMS: CPT CODE: [id number] XR L-SPINE 2/3 VIEWS 75672 Exam: L-spine 3 views AP, lateral and coned-down lateral Location: H 12 HISTORY: back pain FINDINGS: Spondylotic marginal osteophyte formation is seen. Osteoarthritic changes involve the apophyseal joints. The bony cortices are intact. The verteb ral bodies demonstrate normal heights. Scoliosis is present, convex right. The soft tissues are normal. Postoperative changes are noted in the abdo men. Impression: 1. Spondylosis/osteoarthritis. 2. Dextroscoliosis. at 0208 Reported and signed by: Giacomo Schwartz M.D. CC: Bon Weston; Rubina Maier MD Technologist: RT NAVYA Trnscrd Antonio e/Time/By: 03/03/2020 (0208) : By: ValentinaFC Orig Print D/T: S: 2019 (021) PAGE 1 Signed Report PROTHROMBIN [id number] 01:46:00* Test Item Value Reference Range Interpretation Comments PROTHROMBIN TIME PATIENT (test code = PTP) 13.1 seconds 9.0-14.0 N INTERNATIONAL NORMAL RATIO (test code = INR) 1.1 0.8-1.2 N The therapeutic range for oral anticoagulant therapy formost indications is an international normalized ratio (INR)of between 2.0 and 3.0. The recommended therapeutic INRrange for various clinical situations is listed below: Clinical Situation INR range Pulmonary e mbolism treatment (2.0-3.0)Venous thrombosis treatmentVenous thrombosis prophylaxis (high risk surgery)Prevention of systemic embolism from: Acute myocardial infarction Valvular heart disease Atrial fibrillation Mechanical prosthetic heart valves (2.5-3.5) IS PATIENT ON ANTICOAGULANTS? NTHROMBOPLASTIN TIME [id number] 01:46:00* Test Item Value Reference Range Interpretation Comments THROMBOPLASTIN TIME PARTIAL (test code = PTT) 29.3 seconds 25.0-36. 5 N IS PATIENT ON ANTICOAGULANTS? NCBC W/O [id number] 01:33:00* Test Item Value Reference Range Interpretation Comments WHITE BLOOD CELL (test code = WBC) 6.5 K/mm3 4.5-12.5 N RED BLOOD CELL (test code = RBC) 3.94 mill/mm3 3.7-5.2 N HEMOGLOBIN (test code = HGB) 11.2 gram/dL 11.5-15.5 L HEMATOCRIT (test code = HCT) 34.6 % 36.0-46.0 L MEAN CELL VOLUME (test code = MCV) 87.8 fL 80-98 N MEAN CELL HGB (test code = MCH) 28.4 picogram 27.0-33.0 N MEAN CELL HGB CONCETRATION (test code = MCHC) 32.4 gram/dL 33.0-36. 0 L RED CELL DISTRIBUTION WIDTH (test code = RDW) 18.2 % 11.6-16. 2 H PLATELET COUNT (test code = PLT) 132 K/mm3 150-450 L MEAN PLATELET VOLUME (test code = MPV) 9.6 fL 6.7-11.0 N [U] XRAY SHOULDER MIN 2 VWS RIGHT [id number] 13:12:00Images acquired, not reported on this accession number.[facility] [id number] 12:50:00* Test Item Value Reference Range Interpretation Comments GLUBED (test code = GLUBED) 118 mg/dL 74-106 H Performed by certified long lines operator at [facility] [id number] 12:50:00* Test Item Value Reference Range Interpretation Comments GLUBED (test code = GLUBED) 171 mg/dL 74-106 H Performed by certified long lines operator at [facility] MR Shoulder wo contrast [id number] 14:02:00EXAMINATION: MR right shoulder without contrastHISTORY: - S46.001A Unspecified injury of muscle(s) and tendon(s) of therotator cuff of right shoulder, initial encounter; right shoulder pain andlimited range of motion with history of fall one month ago; history of priorright shoulder surgeriesCOMPARISON: Radiographs dated 01/15/2018 and prior MR dated 02/01/2018 arereviewed.TECHNIQUE: Multiplanar, multisequence magnetic resonance imaging of the [facility] is performed with a local coil. Transverse, oblique coronal, andoblique sagittal images are obt ained.FINDINGS:The examination is mildly limited secondary to patient motion art ifact,particularly on the sagittal T2-weighted sequences.Biceps: The intra-artic ular long head of the biceps tendon is notwell-visualized and possibly ruptured with distal retraction versuspostoperative changes of interval biceps tenodesis or tenotomy.Labrum: The glenoid labrum appears intact.Rotator cuff tendons: Ther e are postoperative changes of interval attemptedrotator cuff repair with multip le orthopedic anchors within the greatertuberosity and bone marrow edema along t he posterior aspect of the greatertuberosity. There is persistent severe suprasp inatus and infraspinatustendinosis and there is recurrent full-thickness tearing of the distalsupraspinatus tendon, but the infraspinatus tendon appears to silva in attachedat the orthopedic anchor sites. The teres minor and subscapularis ten donsapparent intact.Muscles: There is mild decreased bulk of the supraspinatus m uscle belly withoutfatty atrophy. There is normal signal intensity and bulk of t he remainder ofthe rotator cuff musculature.Acromio-osseous outlet: There is a t ype II acromion without substantialsubacromial spur. There is no os acromiale. T he coracoacromial andcoracoclavicular ligaments are intact. There is mild degene rative arthrosis ofthe acromioclavicular joint.Bone: Again, there are postoperat tiki changes of interval attempted rotator cuffrepair with multiple orthopedic an chors within the greater tuberosity and bonemarrow edema along the posterior asp ect of the greater tuberosity. Mild osseousdegenerative changes are noted at the acromioclavicular joint. There is noacute fracture. There are no suspicious bon e marrow replacing lesions.Cartilage: Again, there is mild degenerative arthrosi s of the acromioclavicularjoint with associated chondrosis. There is no focal gl enohumeral chondraldefect.Soft tissue: There is a small glenohumeral joint effus ion which communicateswith the subacromial subdeltoid bursa through the recurren t full-thicknesssupraspinatus tendon tear. The inferior glenohumeral capsular li gaments areintact with mild periligamentous soft tissue edema.IMPRESSION:1. Post operative changes of interval attempted right rotator cuff repair withmultiple o rthopedic anchors in place as described above with persistent severesupraspinatu s and infraspinatus tendinopathy. There is recurrent full-thicknesstearing of th e distal right supraspinatus tendon, but the infraspinatus tendonappears to silva in attached at the orthopedic anchor sites and there is norotator cuff muscular fatty atrophy.2. Intra-articular long head of the right biceps tendon is not wel l-visualizedand possibly ruptured with distal retraction versus postoperative ch anges ofinterval biceps tenodesis or tenotomy.3. Mild right acromioclavicular de generative arthrosis.4. Intact right glenoid labrum without focal glenohumeral c hondral defect.5. Small right glenohumeral joint effusion with fluid communicati ng with thesubacromial subdeltoid bursa through the recurrent full-thickness sup raspinatustendon tear.6. Intact inferior right glenohumeral capsular ligaments w ith mildperiligamentous soft tissue edema. This is nonspecific, but may be seen in thesetting of adhesive capsulitis in the correct clinical context.--Read by: Justice Kamara MDDictated Date/time: 03/27/19 16:10Electronically Signed by: Justice Kamara MD 03/27/1916:26FINAL REPORT [place] [id number] 12:28:00* Test Item Value Reference Range Interpretation Comments GLUBED (test code = GLUBED) 132 mg/dL 74-106 H Performed by certified long lines operator at [facility] [id number] 12:28:00* Test Item Value Reference Range Interpretation Comments GLUBED (test code = GLUBED) 99 mg/dL 74-106 N Performed by certified long lines operator at [facility] [id number] 12:28:00* Test Item Value Reference Range Interpretation Comments GLUBED (test code = GLUBED) 123 mg/dL 74-106 H Performed by certified long lines operator at [facility] [id number] 12:28:00* Test Item Value Reference Range Interpretation Comments GLUBED (test code = GLUBED) 96 mg/dL 74-106 N Performed by certified long lines operator at [facility] ANTINUCLEAR ANTIBODIES [id number] 14:11:00* Test Item Value Reference Range Interpretation Comments GUI SCREEN (test code = ANASCR) Negative Negative Performed At: [facility] [id number] Fitzgerald MD Ph:[phone] ACUTE HEPATITIS [id number] 14:11:00* Test Item Value Reference Range Interpretation Comments AB HEPATITIS A IGM (test code = HAVMAB) Negative Negative AG HEPAT B SURF (test code = HBSAG) Negative Negative HEPATITIS B CORE ANTIBODY,IGM (test code = HBCMAB) Negative Neg ative AB HEPATITIS C (test code = HCVAB) <0.1 0.0-0.9 INFCE Result Units: s/co ratio Negative: < 0.8 Indeterminate: 0.8 - 0.9 Positive: > 0.9 The CDC recommends that a positive HCV antibody result be followed up with a HCV Nucleic Acid Amplification test (403983).Performed At: [facility] [id number] Fitzgerald MD Ph:[phone] AB [id number] 14:11:00* Test Item Value Reference Range Interpretation Comments AB MITOCHONDRIAL (test code = MITOCHAB) <20.0 Units 0.0-20.0 Negative 0.0 - 20.0 Equivocal 20.1 - 24.9 Positive >24.9Mitochondrial (M2) Antibodies are found in 90-96% ofpatients with primary biliary cirrhosis.Performed At: [facility] [id number] Rosario MD Ph:[phone] AB ANTI-SMOOTH [id number] 14:11:00* Test Item Value Reference Range Interpretation Comments AB ANTI-SMOOTH MUSCLE (test code = SMOOTHAB) 12 Units 0-19 Negative 0 - 19 Weak positive 20 - 30 Moderate to strong positive >30 Actin Antibodies are found in 52-85% of patients with autoimmune hepatitis or chronic active hepatitis and in 22% of patients with primary biliary cirrhosis.Performed At: [facility] [id number] Rosario MD Ph:[phone] ANTINUCLEAR ANTIBODIES [id number] 12:14:00* Test Item Value Reference Range Interpretation Comments GUI SCREEN (test code = ANASCR) Negative Negative Performed At: [facility] [id number] Fitzgerald MD Ph:[phone] ACUTE HEPATITIS [id number] 12:14:00* Test Item Value Reference Range Interpretation Comments AB HEPATITIS A IGM (test code = HAVMAB) Negative Negative AG HEPAT B SURF (test code = HBSAG) Negative Negative HEPATITIS B CORE ANTIBODY,IGM (test code = HBCMAB) Negative Neg ative AB HEPATITIS C (test code = HCVAB) <0.1 0.0-0.9 INFCE Result Units: s/co ratio Negative: < 0.8 Indeterminate: 0.8 - 0.9 Positive: > 0.9 The CDC recommends that a positive HCV antibody result be followed up with a HCV Nucleic Acid Amplification test ([id number]).Performed At: [place] [address] [place], [place] [id number] Fitzgerald MD Ph:[phone] AB [id number] 12:14:00* Test Item Value Reference Range Interpretation Comments AB MITOCHONDRIAL (test code = MITOCHAB) EIA <1.0 AB ANTI-SMOOTH [id number] 12:14:00* Test Item Value Reference Range Interpretation Comments AB ANTI-SMOOTH MUSCLE (test code = SMOOTHAB) 12 Units 0-19 Negative 0 - 19 Weak positive 20 - 30 Moderate to strong positive >30 Actin Antibodies are found in 52-85% of patients with autoimmune hepatitis or chronic active hepatitis and in 22% of patients with primary biliary cirrhosis.Performed At: [facility] [id number] Sanjai MD Ph:[phone] CBC W/AUTO [id number] 11:02:00* Test Item Value Reference Range Interpretation Comments WHITE BLOOD CELL (test code = WBC) 6.3 K/mm3 4.5-12.5 N RED BLOOD CELL (test code = RBC) 2.77 mill/mm3 3.7-5.2 L HEMOGLOBIN (test code = HGB) 8.2 gram/dL 11.5-15.5 L HEMATOCRIT (test code = HCT) 27.9 % 36.0-46.0 L MEAN CELL VOLUME (test code = MCV) 100.7 fL 80-98 H MEAN CELL HGB (test code = MCH) 29.6 picogram 27.0-33.0 N MEAN CELL HGB CONCETRATION (test code = MCHC) 29.4 gram/dL 33.0-36. 0 L RED CELL DISTRIBUTION WIDTH (test code = RDW) 19.6 % 11.6-16. 2 H RED CELL DISTRIBUTION WIDTH SD (test code = RDW-SD) 71.7 fL 37 .0-51.0 H PLATELET COUNT (test code = PLT) 188 K/mm3 150-450 N MEAN PLATELET VOLUME (test code = MPV) 10.7 fL 6.7-11.0 N NEUTROPHIL % (test code = NT%) 53.4 % 39.0-69.0 N IMMATURE GRANULOCYTE % (test code = IG%) 0.8 % 0.0-5.0 N LYMPHOCYTE % (test code = LY%) 21.9 % 25.0-55.0 L MONOCYTE % (test code = MO%) 19.9 % 0.0-10.0 H EOSINOPHIL % (test code = EO%) 3.2 % 0.0-5.0 N BASOPHIL % (test code = BA%) 0.8 % 0.0-1.0 N NUCLEATED RBC % (test code = NRBC%) 0.0 % 0-0 N NEUTROPHIL # (test code = NT#) 3.39 K/mm3 1.8-7.7 N IMMATURE GRANULOCYTE # (test code = IG#) 0.05 x10 3/uL 0-0.03 H LYMPHOCYTE # (test code = LY#) 1.39 K/mm3 1.0-5.0 N MONOCYTE # (test code = MO#) 1.26 K/mm3 0-0.8 H EOSINOPHIL # (test code = EO#) 0.20 K/mm3 0.0-0.5 N BASOPHIL # (test code = BA#) 0.05 K/mm3 0.0-0.2 N NUCLEATED RBC # (test code = NRBC#) 0.00 K/mm3 0.0-0.1 N MANUAL DIFF REQUIRED (test code = MDIFF) NO, ONLY SCAN NEEDED DIFFERENTIAL [id number] 11:02:00* Test Item Value Reference Range Interpretation Comments STAIN ACCEPTABILITY (test code = STN ACCEPTABLE) STAIN ACCEPTABLE POLYCHROMASIA (test code = POLC) 1+ HYPOCHROMIA (test code = HYPO) 1+ POIKILOCYTOSIS (test code = POIK) 1+ ANISOCYTOSIS (test code = ANISO) 1+ MACROCYTOSIS (test code = MACR) 1+ PLATELET ESTIMATE (test code = PLTEST) ADEQUATE PLATELET MORPHOLOGY (test code = PLTMORPH) NORMAL - CT ABDOMEN [id number] 10:11:00 Name: ALICIA KING [facility] : 1950 Age/S: 68 / F [address] [facility] Unit #: [id number] Loc: [place] [address] Phys: Derick Mccall MD Acct: [id number] Dis Date: Status: ADM IN PHONE #: [phone] Exam Date: 03/08/2019 0838 FAX #: [phone] Reason: abnormal liver function, anemia, alcohol abuse EXAMS: CPT CODE: [id number] CT ABDOMEN W/CONT 01344 HISTORY: Abnormal liver function tests and anemia. COMPARISON: Ultrasound from March [address] scan from February 13, 2014. CT abdomen and pelvis with IV contrast: 100 mL of Isovue-370. Automated exposure control. The lung bases are clear. Dependent changes. Small to trace left effusion. Hepatic parenchyma can demonstrating diffuse fatty infiltration with areas of fatty sparing. The left lobe is small. Hepatic cyst in the segment 5 of the right lobe of the liver is stable measuring 4.4 cm with average Hounsfield unit measurement of 10 as seen on the 2014 exam. Main portal vein and hepatic artery are patent. The spleen is not enlarged. Patient is post gastrectomy and gastrojejunostomy. Distal jejunal/is one anastomosis as well all remain patent. No fluid collection noted. Unremarkable pancreas is enhancing homogeneously with unremarkable ad renals Both kidneys are free from hydroureteronephrosis. Homogeneo us enhancement. Bilateral excretion is noted. Bosniak 2 lesi on in the posterior right upper pole measured 1.8 cm which is stable with average Hounsfield unit measurement of 36 and Bosniak 1 lesion in the ante rior right upper pole measuring 1.1 cm with average Hounsfield unit measur ement of 9.5. Stable Bosniak 2 lesion as well in the posterior left upper pole measuring 2.2 cm with average Hounsfield unit measurement of 50. No p erinephric collections. No pathologic adenopathy. Very heavy ather osclerotic calcified stones of the abdominal vasculature No bowel obstruction or colitis or diverticulitis or enteritis. No free fluid or free air or abscess. Subcutaneous tissues and the musculature demonstrating bilateral breast implants. Small fat-containing ventral maritza ia at the level of the umbilicus towards the right of midline without inca rceration. Mild flank edema bilaterally. No lytic or blastic lesions are n oted within the bony skeleton. Hemangioma T11 vertebral body. PAGE 1 Signed Report (CONTINUED) Nam e: ALICIA KING MITCHELL [facility] : Age/S: 68 / F [address] Unit #: [id number] Loc: [place] [address] Phys: Derick Mccall MD Acct: [id number] Dis Antonio e: Status: ADM IN PHONE #: [phone] Exam Date: 03/08/2019837 FAX #: [phone] Reason: abnormal liver function, anemia, alcohol abuse EXAMS: CPT CODE: [id number] CT ABDOMEN W/CONT 20554 <Continued> IMPRESSION: Diffusely fatty infiltrated liver with stable hepatic cyst measuring 4.4 cm in the right lobe in segment 5 from 2014. No hydroureteronephrosis with homogeneous enhancement and excretion. Bosniak 2 lesions bilaterally are stable from 2014. No bowel obstruction or colitis or diverticulitis or enteritis. Appendix is not visible but no inflammatory change. No free fluid, free air or abscess. at 1011 Reported and signed by: Lincoln Zayas M.D. CC: Derick Mccall MD; Bon Weston; Nata Buenrostro Technologist:ALIYAH OLVERA RT(R); Cuca Renee CTDI: DLP: Trnscb Date/Time: 03/08/2019 (1011) t.SDR.TH4 Orig Print D/T: S: 03/08/2019 (1014) CTDI: DLP: PAGE 2 Signed Report B-TYPE NATRIURETIC PEPTIDE 2019-03-08 09:10:00* Test Item Value Reference Range Interpretation Comments B-TYPE NATRIURETIC PEPTIDE (test code = BNP) 449.25 pgram/mL 0-100 H CBC W/AUTO [id number] 08:44:00* Test Item Value Reference Range Interpretation Comments WHITE BLOOD CELL (test code = WBC) 6.3 K/mm3 4.5-12.5 N RED BLOOD CELL (test code = RBC) 2.77 mill/mm3 3.7-5.2 L HEMOGLOBIN (test code = HGB) 8.2 gram/dL 11.5-15.5 L HEMATOCRIT (test code = HCT) 27.9 % 36.0-46.0 L MEAN CELL VOLUME (test code = MCV) 100.7 fL 80-98 H MEAN CELL HGB (test code = MCH) 29.6 picogram 27.0-33.0 N MEAN CELL HGB CONCETRATION (test code = MCHC) 29.4 gram/dL 33.0-36. 0 L RED CELL DISTRIBUTION WIDTH (test code = RDW) 19.6 % 11.6-16. 2 H RED CELL DISTRIBUTION WIDTH SD (test code = RDW-SD) 71.7 fL 37 .0-51.0 H PLATELET COUNT (test code = PLT) 188 K/mm3 150-450 N MEAN PLATELET VOLUME (test code = MPV) 10.7 fL 6.7-11.0 N NEUTROPHIL % (test code = NT%) 53.4 % 39.0-69.0 N IMMATURE GRANULOCYTE % (test code = IG%) 0.8 % 0.0-5.0 N LYMPHOCYTE % (test code = LY%) 21.9 % 25.0-55.0 L MONOCYTE % (test code = MO%) 19.9 % 0.0-10.0 H EOSINOPHIL % (test code = EO%) 3.2 % 0.0-5.0 N BASOPHIL % (test code = BA%) 0.8 % 0.0-1.0 N NUCLEATED RBC % (test code = NRBC%) 0.0 % 0-0 N NEUTROPHIL # (test code = NT#) 3.39 K/mm3 1.8-7.7 N IMMATURE GRANULOCYTE # (test code = IG#) 0.05 x10 3/uL 0-0.03 H LYMPHOCYTE # (test code = LY#) 1.39 K/mm3 1.0-5.0 N MONOCYTE # (test code = MO#) 1.26 K/mm3 0-0.8 H EOSINOPHIL # (test code = EO#) 0.20 K/mm3 0.0-0.5 N BASOPHIL # (test code = BA#) 0.05 K/mm3 0.0-0.2 N NUCLEATED RBC # (test code = NRBC#) 0.00 K/mm3 0.0-0.1 N MANUAL DIFF REQUIRED (test code = MDIFF) NO, ONLY SCAN NEEDED DIFFERENTIAL [id number] 08:44:00* Test Item Value Reference Range Interpretation Comments STAIN ACCEPTABILITY (test code = STN ACCEPTABLE) CABOT RINGS (test code = CAB) MORPHOLOGY COMMENT (test code = MOC) PLATELET ESTIMATE (test code = PLTEST) PLATELET MORPHOLOGY (test code = PLTMORPH) CBC W/AUTO [id number] 08:44:00* Test Item Value Reference Range Interpretation Comments WHITE BLOOD CELL (test code = WBC) 6.3 K/mm3 4.5-12.5 N RED BLOOD CELL (test code = RBC) 2.77 mill/mm3 3.7-5.2 L HEMOGLOBIN (test code = HGB) 8.2 gram/dL 11.5-15.5 L HEMATOCRIT (test code = HCT) 27.9 % 36.0-46.0 L MEAN CELL VOLUME (test code = MCV) 100.7 fL 80-98 H MEAN CELL HGB (test code = MCH) 29.6 picogram 27.0-33.0 N MEAN CELL HGB CONCETRATION (test code = MCHC) 29.4 gram/dL 33.0-36. 0 L RED CELL DISTRIBUTION WIDTH (test code = RDW) 19.6 % 11.6-16. 2 H RED CELL DISTRIBUTION WIDTH SD (test code = RDW-SD) 71.7 fL 37 .0-51.0 H PLATELET COUNT (test code = PLT) 188 K/mm3 150-450 N MEAN PLATELET VOLUME (test code = MPV) 10.7 fL 6.7-11.0 N NEUTROPHIL % (test code = NT%) 53.4 % 39.0-69.0 N IMMATURE GRANULOCYTE % (test code = IG%) 0.8 % 0.0-5.0 N LYMPHOCYTE % (test code = LY%) 21.9 % 25.0-55.0 L MONOCYTE % (test code = MO%) 19.9 % 0.0-10.0 H EOSINOPHIL % (test code = EO%) 3.2 % 0.0-5.0 N BASOPHIL % (test code = BA%) 0.8 % 0.0-1.0 N NUCLEATED RBC % (test code = NRBC%) 0.0 % 0-0 N NEUTROPHIL # (test code = NT#) 3.39 K/mm3 1.8-7.7 N IMMATURE GRANULOCYTE # (test code = IG#) 0.05 x10 3/uL 0-0.03 H LYMPHOCYTE # (test code = LY#) 1.39 K/mm3 1.0-5.0 N MONOCYTE # (test code = MO#) 1.26 K/mm3 0-0.8 H EOSINOPHIL # (test code = EO#) 0.20 K/mm3 0.0-0.5 N BASOPHIL # (test code = BA#) 0.05 K/mm3 0.0-0.2 N NUCLEATED RBC # (test code = NRBC#) 0.00 K/mm3 0.0-0.1 N MANUAL DIFF REQUIRED (test code = MDIFF) NO, ONLY SCAN NEEDED DIFFERENTIAL [id number] 08:44:00* Test Item Value Reference Range Interpretation Comments STAIN ACCEPTABILITY (test code = STN ACCEPTABLE) CABOT RINGS (test code = CAB) MORPHOLOGY COMMENT (test code = MOC) PLATELET ESTIMATE (test code = PLTEST) PLATELET MORPHOLOGY (test code = PLTMORPH) CBC W/AUTO [id number] 08:44:00* Test Item Value Reference Range Interpretation Comments WHITE BLOOD CELL (test code = WBC) 6.3 K/mm3 4.5-12.5 N RED BLOOD CELL (test code = RBC) 2.77 mill/mm3 3.7-5.2 L HEMOGLOBIN (test code = HGB) 8.2 gram/dL 11.5-15.5 L HEMATOCRIT (test code = HCT) 27.9 % 36.0-46.0 L MEAN CELL VOLUME (test code = MCV) 100.7 fL 80-98 H MEAN CELL HGB (test code = MCH) 29.6 picogram 27.0-33.0 N MEAN CELL HGB CONCETRATION (test code = MCHC) 29.4 gram/dL 33.0-36. 0 L RED CELL DISTRIBUTION WIDTH (test code = RDW) 19.6 % 11.6-16. 2 H RED CELL DISTRIBUTION WIDTH SD (test code = RDW-SD) 71.7 fL 37 .0-51.0 H PLATELET COUNT (test code = PLT) 188 K/mm3 150-450 N MEAN PLATELET VOLUME (test code = MPV) 10.7 fL 6.7-11.0 N NEUTROPHIL % (test code = NT%) 53.4 % 39.0-69.0 N IMMATURE GRANULOCYTE % (test code = IG%) 0.8 % 0.0-5.0 N LYMPHOCYTE % (test code = LY%) 21.9 % 25.0-55.0 L MONOCYTE % (test code = MO%) 19.9 % 0.0-10.0 H EOSINOPHIL % (test code = EO%) 3.2 % 0.0-5.0 N BASOPHIL % (test code = BA%) 0.8 % 0.0-1.0 N NUCLEATED RBC % (test code = NRBC%) 0.0 % 0-0 N NEUTROPHIL # (test code = NT#) 3.39 K/mm3 1.8-7.7 N IMMATURE GRANULOCYTE # (test code = IG#) 0.05 x10 3/uL 0-0.03 H LYMPHOCYTE # (test code = LY#) 1.39 K/mm3 1.0-5.0 N MONOCYTE # (test code = MO#) 1.26 K/mm3 0-0.8 H EOSINOPHIL # (test code = EO#) 0.20 K/mm3 0.0-0.5 N BASOPHIL # (test code = BA#) 0.05 K/mm3 0.0-0.2 N NUCLEATED RBC # (test code = NRBC#) 0.00 K/mm3 0.0-0.1 N MANUAL DIFF REQUIRED (test code = MDIFF) NO, ONLY SCAN NEEDED DIFFERENTIAL [id number] 08:44:00* Test Item Value Reference Range Interpretation Comments STAIN ACCEPTABILITY (test code = STN ACCEPTABLE) MORPHOLOGY COMMENT (test code = MOC) PLATELET ESTIMATE (test code = PLTEST) PLATELET MORPHOLOGY (test code = PLTMORPH) CBC W/AUTO [id number] 08:44:00* Test Item Value Reference Range Interpretation Comments WHITE BLOOD CELL (test code = WBC) 6.3 K/mm3 4.5-12.5 N RED BLOOD CELL (test code = RBC) 2.77 mill/mm3 3.7-5.2 L HEMOGLOBIN (test code = HGB) 8.2 gram/dL 11.5-15.5 L HEMATOCRIT (test code = HCT) 27.9 % 36.0-46.0 L MEAN CELL VOLUME (test code = MCV) 100.7 fL 80-98 H MEAN CELL HGB (test code = MCH) 29.6 picogram 27.0-33.0 N MEAN CELL HGB CONCETRATION (test code = MCHC) 29.4 gram/dL 33.0-36. 0 L RED CELL DISTRIBUTION WIDTH (test code = RDW) 19.6 % 11.6-16. 2 H RED CELL DISTRIBUTION WIDTH SD (test code = RDW-SD) 71.7 fL 37 .0-51.0 H PLATELET COUNT (test code = PLT) 188 K/mm3 150-450 N MEAN PLATELET VOLUME (test code = MPV) 10.7 fL 6.7-11.0 N NEUTROPHIL % (test code = NT%) 53.4 % 39.0-69.0 N IMMATURE GRANULOCYTE % (test code = IG%) 0.8 % 0.0-5.0 N LYMPHOCYTE % (test code = LY%) 21.9 % 25.0-55.0 L MONOCYTE % (test code = MO%) 19.9 % 0.0-10.0 H EOSINOPHIL % (test code = EO%) 3.2 % 0.0-5.0 N BASOPHIL % (test code = BA%) 0.8 % 0.0-1.0 N NUCLEATED RBC % (test code = NRBC%) 0.0 % 0-0 N NEUTROPHIL # (test code = NT#) 3.39 K/mm3 1.8-7.7 N IMMATURE GRANULOCYTE # (test code = IG#) 0.05 x10 3/uL 0-0.03 H LYMPHOCYTE # (test code = LY#) 1.39 K/mm3 1.0-5.0 N MONOCYTE # (test code = MO#) 1.26 K/mm3 0-0.8 H EOSINOPHIL # (test code = EO#) 0.20 K/mm3 0.0-0.5 N BASOPHIL # (test code = BA#) 0.05 K/mm3 0.0-0.2 N NUCLEATED RBC # (test code = NRBC#) 0.00 K/mm3 0.0-0.1 N MANUAL DIFF REQUIRED (test code = MDIFF) NO, ONLY SCAN NEEDED DIFFERENTIAL [id number] 08:44:00* Test Item Value Reference Range Interpretation Comments STAIN ACCEPTABILITY (test code = STN ACCEPTABLE) CABOT RINGS (test code = CAB) MORPHOLOGY COMMENT (test code = MOC) PLATELET ESTIMATE (test code = PLTEST) PLATELET MORPHOLOGY (test code = PLTMORPH) BASIC METABOLIC [id number] 07:24:00* Test Item Value Reference Range Interpretation Comments SODIUM (test code = NA) 146 mmol/L 136-145 H POTASSIUM (test code = K) 3.6 mmol/L 3.5-5.1 N CHLORIDE (test code = CL) 116.0 mmol/L 98-107 H CARBON DIOXIDE (test code = CO2) 21.0 mmol/L 21-32 N ANION GAP (test code = GAP) 12.6 10-20 N GLUCOSE (test code = GLU) 84 mg/dL 74-106 N BLOOD UREA NITROGEN (test code = BUN) 7 mg/dL 7-18 N GLOMERULAR FILTRATION RATE (test code = GFR) > 60 mL/min >=60 Estimated GFR by using Modified MDRD formula.Chronic kidney disease is defined as either kidney damageor GFR <60 mL/min/1.73 m2 for >3 months. CREATININE (test code = CREAT) 0.30 mg/dL 0.55-1.02 L Note change in reference range due to change in reagent. BUN/CREATININE RATIO (test code = BUN/CREA) 23.3 10-20 H CALCIUM (test code = CA) 7.5 mg/dL 8.5-10.1 L BASIC METABOLIC [id number] 07:14:00* Test Item Value Reference Range Interpretation Comments SODIUM (test code = NA) 146 mmol/L 136-145 H POTASSIUM (test code = K) 3.6 mmol/L 3.5-5.1 N CHLORIDE (test code = CL) 116.0 mmol/L 98-107 H CARBON DIOXIDE (test code = CO2) mmol/L 21-32 ANION GAP (test code = GAP) 10-20 GLUCOSE (test code = GLU) mg/dL 74-106 BLOOD UREA NITROGEN (test code = BUN) mg/dL 7-18 GLOMERULAR FILTRATION RATE (test code = GFR) mL/min >=60 CREATININE (test code = CREAT) mg/dL 0.55-1.02 BUN/CREATININE RATIO (test code = BUN/CREA) 10-20 CALCIUM (test code = CA) mg/dL 8.5-10.1 [id number] 22:37:00* Test Item Value Reference Range Interpretation Comments FERRITIN (test code = HAYLEE) 67 ng/mL 8-388 N SPECIMEN COMMENTS: add onBASIC METABOLIC [id number] 07:29:00* Test Item Value Reference Range Interpretation Comments SODIUM (test code = NA) 147 mmol/L 136-145 H POTASSIUM (test code = K) 3.0 mmol/L 3.5-5.1 L CHLORIDE (test code = CL) 115.0 mmol/L 98-107 H CARBON DIOXIDE (test code = CO2) 25.0 mmol/L 21-32 N ANION GAP (test code = GAP) 10.0 10-20 N GLUCOSE (test code = GLU) 88 mg/dL 74-106 N BLOOD UREA NITROGEN (test code = BUN) 6 mg/dL 7-18 L GLOMERULAR FILTRATION RATE (test code = GFR) > 60 mL/min >=60 Estimated GFR by using Modified MDRD formula.Chronic kidney disease is defined as either kidney damageor GFR <60 mL/min/1.73 m2 for >3 months. CREATININE (test code = CREAT) 0.40 mg/dL 0.55-1.02 L Note change in reference range due to change in reagent. BUN/CREATININE RATIO (test code = BUN/CREA) 15.0 10-20 N CALCIUM (test code = CA) 7.0 mg/dL 8.5-10.1 L [id number] 07:29:00* Test Item Value Reference Range Interpretation Comments MAGNESIUM (test code = MAG) 1.5 mg/dL 1.8-2.4 L [id number] 07:28:00* Test Item Value Reference Range Interpretation Comments PHOSPHORUS (test code = PHOS) 2.0 mg/dL 2.5-4.9 L BASIC METABOLIC [id number] 07:18:00* Test Item Value Reference Range Interpretation Comments SODIUM (test code = NA) 147 mmol/L 136-145 H POTASSIUM (test code = K) 3.0 mmol/L 3.5-5.1 L CHLORIDE (test code = CL) 115.0 mmol/L 98-107 H CARBON DIOXIDE (test code = CO2) mmol/L 21-32 ANION GAP (test code = GAP) 10-20 GLUCOSE (test code = GLU) mg/dL 74-106 BLOOD UREA NITROGEN (test code = BUN) mg/dL 7-18 GLOMERULAR FILTRATION RATE (test code = GFR) mL/min >=60 CREATININE (test code = CREAT) mg/dL 0.55-1.02 BUN/CREATININE RATIO (test code = BUN/CREA) 10-20 CALCIUM (test code = CA) mg/dL 8.5-10.1 [id number] 07:18:00* Test Item Value Reference Range Interpretation Comments MAGNESIUM (test code = MAG) mg/dL 1.8-2.4 CBC W/AUTO [id number] 07:02:00* Test Item Value Reference Range Interpretation Comments WHITE BLOOD CELL (test code = WBC) 5.2 K/mm3 4.5-12.5 N RED BLOOD CELL (test code = RBC) 2.58 mill/mm3 3.7-5.2 L HEMOGLOBIN (test code = HGB) 7.8 gram/dL 11.5-15.5 L HEMATOCRIT (test code = HCT) 25.4 % 36.0-46.0 L MEAN CELL VOLUME (test code = MCV) 98.4 fL 80-98 H MEAN CELL HGB (test code = MCH) 30.2 picogram 27.0-33.0 N MEAN CELL HGB CONCETRATION (test code = MCHC) 30.7 gram/dL 33.0-36. 0 L RED CELL DISTRIBUTION WIDTH (test code = RDW) 19.4 % 11.6-16. 2 H RED CELL DISTRIBUTION WIDTH SD (test code = RDW-SD) 68.6 fL 37 .0-51.0 H PLATELET COUNT (test code = PLT) 151 K/mm3 150-450 N MEAN PLATELET VOLUME (test code = MPV) 9.6 fL 6.7-11.0 N NEUTROPHIL % (test code = NT%) 43.4 % 39.0-69.0 N IMMATURE GRANULOCYTE % (test code = IG%) 0.8 % 0.0-5.0 N LYMPHOCYTE % (test code = LY%) 27.3 % 25.0-55.0 N MONOCYTE % (test code = MO%) 23.8 % 0.0-10.0 H EOSINOPHIL % (test code = EO%) 4.1 % 0.0-5.0 N BASOPHIL % (test code = BA%) 0.6 % 0.0-1.0 N NUCLEATED RBC % (test code = NRBC%) 0.0 % 0-0 N NEUTROPHIL # (test code = NT#) 2.25 K/mm3 1.8-7.7 N IMMATURE GRANULOCYTE # (test code = IG#) 0.04 x10 3/uL 0-0.03 H LYMPHOCYTE # (test code = LY#) 1.41 K/mm3 1.0-5.0 N MONOCYTE # (test code = MO#) 1.23 K/mm3 0-0.8 H EOSINOPHIL # (test code = EO#) 0.21 K/mm3 0.0-0.5 N BASOPHIL # (test code = BA#) 0.03 K/mm3 0.0-0.2 N NUCLEATED RBC # (test code = NRBC#) 0.00 K/mm3 0.0-0.1 N MANUAL DIFF REQUIRED (test code = MDIFF) NO [id number] 13:36:00* Test Item Value Reference Range Interpretation Comments MAGNESIUM (test code = MAG) 1.5 mg/dL 1.8-2.4 L BETA [id number] 11:19:00* Test Item Value Reference Range Interpretation Comments BETA HYDROBUTYRATE (test code = BETHYD) 88 mg/dL () A Confirmed by dilution.Reference Range:All Ages (fasting): 0.2 - 2.8Performed At: [facility] [address] [place], [place] [id number] Samuel H MD Ph:[phone] GASTRIC,[id number] 11:02:00 RUN DATE: 03/06/19 [place] [facility] PAGE 1 RUN TIME: 1102 Specimen Inqui ry RUN USER: INTERFACE PATIENT: ALICIA KING ACCT #: [id number] [facility] #: [id number] AGE/SX: 68/F ROOM: 2073 RE03/02/19REG DR: Nata Buenrostro MD : 46 BED: A DIS: STATUS: ADM IN TLOC: SPEC #: [id number] RECD: 03/05/19 STATUS: CAROLANN MAGALLON #: [id number] JAMEY: 03/04/19 DR: Selvin Forrest MD ENTERED: 03/05/19 SP TYPE: GASTRIC BX OTHR DR: Selvin Valdes i, MD, Thomas J MD Qureshi, Salah Uddin MDORDERED: PIERRE COPIES TO: Selvin Forrest MD [address] [place], [place] [address] [place] [address] [place], [place] [id number] Renuka Abraham MD [address] [facility] [address] [place] [address] MD OCEDURES: PIERRE (03/06/19) TISSUES: ANTRUM - BX CLINICAL HISTORY COLLECTION DATE: 03/04/19 ANEMIA, MELENA FINAL DIAGNOSIS Lower third of the esophagus, biopsy: GASTROESOPHAGEAL MUCOSA WITH MIL D CHRONIC INFLAMMATION CONSISTENT WITH MILD REFLUX ESOPHAGITIS WITH RICARDO CTIVE CARDITIS NEGATIVE FOR INTESTINAL METAPLASIA, DYSPLASIA OR MALIGNANC Y FA/sm D 54095 CONTINUED ON NE XT PAGE RUN DATE: 03/06/19 [place] - Lab PAGE 2 RUN TIME: 1102 Spe Operative [place] Inquiry RUN USER: INTERFACE SPEC #: [id number] PATIENT: ALICIA SANDERS #[id number] ([facility]) M ACROSCOPIC The specimen is received in formalin, labeled with the patient's n radha, designated "antrum" and identified as "lower third of esphagus", on endos copy report, and consists of three savage-pink biopsy tissue measuring 0.1 to 0.3 cm, entirely submitted in a single cassette. GROSS PERFORMED AT [facility] [address] [place] [address] (p)[phone] MICROSCOPIC All of the stains, including any controls performed, stain appropriately. MICROSCO PIC PERFORMED AT [facility] [address] [place] [address] (p)[phone] PERFORMING SITE Diagnosis performed at: [facility], [place] [address] [place] [address] Ugo HUI ON FILE Feliz Beltre MD 03/06/19 1102 ----- ------- END OF REPORT ANTINUCLEAR ANTIBODIES [id number] 09:17:00* Test Item Value Reference Range Interpretation Comments GUI SCREEN (test code = ANASCR) Negative Negative Performed At: [facility] [address] [id number] Fitzgerald MD Ph:[phone] ACUTE HEPATITIS [id number] 09:17:00* Test Item Value Reference Range Interpretation Comments AB HEPATITIS A IGM (test code = HAVMAB) Negative Negative AG HEPAT B SURF (test code = HBSAG) Negative Negative HEPATITIS B CORE ANTIBODY,IGM (test code = HBCMAB) Negative Neg ative AB HEPATITIS C (test code = HCVAB) <0.1 0.0-0.9 INFCE Result Units: s/co ratio Negative: < 0.8 Indeterminate: 0.8 - 0.9 Positive: > 0.9 The CDC recommends that a positive HCV antibody result be followed up with a HCV Nucleic Acid Amplification test ([id number]).Performed At: [facility] [address] [id number] Kyle L MD Ph:[phone] AB [id number] 09:17:00* Test Item Value Reference Range Interpretation Comments AB MITOCHONDRIAL (test code = MITOCHAB) EIA <1.0 AB ANTI-SMOOTH [id number] 09:17:00* Test Item Value Reference Range Interpretation Comments AB ANTI-SMOOTH MUSCLE (test code = SMOOTHAB) Units BASIC METABOLIC [id number] 07:39:00* Test Item Value Reference Range Interpretation Comments SODIUM (test code = NA) 147 mmol/L 136-145 H POTASSIUM (test code = K) 2.4 mmol/L 3.5-5.1 Re sults called to [id number] by JENNIFERB 03/06/19 0738Critical results verified and read back by Nurse? Y CHLORIDE (test code = CL) 110.0 mmol/L 98-107 H CARBON DIOXIDE (test code = CO2) 28.0 mmol/L 21-32 N ANION GAP (test code = GAP) 11.4 10-20 N GLUCOSE (test code = GLU) 93 mg/dL 74-106 N BLOOD UREA NITROGEN (test code = BUN) 3 mg/dL 7-18 L GLOMERULAR FILTRATION RATE (test code = GFR) > 60 mL/min >=60 Estimated GFR by using Modified MDRD formula.Chronic kidney disease is defined as either kidney damageor GFR <60 mL/min/1.73 m2 for >3 months. CREATININE (test code = CREAT) 0.40 mg/dL 0.55-1.02 L Note change in reference range due to change in reagent. BUN/CREATININE RATIO (test code = BUN/CREA) 7.5 10-20 L CALCIUM (test code = CA) 7.5 mg/dL 8.5-10.1 L [id number] 07:39:00* Test Item Value Reference Range Interpretation Comments PHOSPHORUS (test code = PHOS) 1.9 mg/dL 2.5-4.9 L [id number] 07:39:00* Test Item Value Reference Range Interpretation Comments MAGNESIUM (test code = MAG) 1.5 mg/dL 1.8-2.4 L ANTINUCLEAR ANTIBODIES [id number] 07:34:00* Test Item Value Reference Range Interpretation Comments GUI SCREEN (test code = ANASCR) ACUTE HEPATITIS [id number] 07:34:00* Test Item Value Reference Range Interpretation Comments AB HEPATITIS A IGM (test code = HAVMAB) Negative Negative AG HEPAT B SURF (test code = HBSAG) Negative Negative HEPATITIS B CORE ANTIBODY,IGM (test code = HBCMAB) Negative Neg ative AB HEPATITIS C (test code = HCVAB) <0.1 0.0-0.9 INFCE Result Units: s/co ratio Negative: < 0.8 Indeterminate: 0.8 - 0.9 Positive: > 0.9 The CDC recommends that a positive HCV antibody result be followed up with a HCV Nucleic Acid Amplification test ([id number]).Performed At: [facility] [address] [id number] Tato Fitzgerald MD Ph:[phone] AB [id number] 07:34:00* Test Item Value Reference Range Interpretation Comments AB MITOCHONDRIAL (test code = MITOCHAB) EIA <1.0 AB ANTI-SMOOTH [id number] 07:34:00* Test Item Value Reference Range Interpretation Comments AB ANTI-SMOOTH MUSCLE (test code = SMOOTHAB) Units CBC W/AUTO [id number] 06:31:00* Test Item Value Reference Range Interpretation Comments WHITE BLOOD CELL (test code = WBC) 5.1 K/mm3 4.5-12.5 N RED BLOOD CELL (test code = RBC) 2.92 mill/mm3 3.7-5.2 L HEMOGLOBIN (test code = HGB) 8.6 gram/dL 11.5-15.5 L HEMATOCRIT (test code = HCT) 28.7 % 36.0-46.0 L MEAN CELL VOLUME (test code = MCV) 98.3 fL 80-98 H MEAN CELL HGB (test code = MCH) 29.5 picogram 27.0-33.0 N MEAN CELL HGB CONCETRATION (test code = MCHC) 30.0 gram/dL 33.0-36. 0 L RED CELL DISTRIBUTION WIDTH (test code = RDW) 18.8 % 11.6-16. 2 H RED CELL DISTRIBUTION WIDTH SD (test code = RDW-SD) 65.9 fL 37 .0-51.0 H PLATELET COUNT (test code = PLT) 145 K/mm3 150-450 L MEAN PLATELET VOLUME (test code = MPV) 9.3 fL 6.7-11.0 N NEUTROPHIL % (test code = NT%) 45.0 % 39.0-69.0 N IMMATURE GRANULOCYTE % (test code = IG%) 1.4 % 0.0-5.0 N LYMPHOCYTE % (test code = LY%) 23.0 % 25.0-55.0 L MONOCYTE % (test code = MO%) 27.7 % 0.0-10.0 H EOSINOPHIL % (test code = EO%) 2.3 % 0.0-5.0 N BASOPHIL % (test code = BA%) 0.6 % 0.0-1.0 N NUCLEATED RBC % (test code = NRBC%) 0.0 % 0-0 N NEUTROPHIL # (test code = NT#) 2.31 K/mm3 1.8-7.7 N IMMATURE GRANULOCYTE # (test code = IG#) 0.07 x10 3/uL 0-0.03 H LYMPHOCYTE # (test code = LY#) 1.18 K/mm3 1.0-5.0 N MONOCYTE # (test code = MO#) 1.42 K/mm3 0-0.8 H EOSINOPHIL # (test code = EO#) 0.12 K/mm3 0.0-0.5 N BASOPHIL # (test code = BA#) 0.03 K/mm3 0.0-0.2 N NUCLEATED RBC # (test code = NRBC#) 0.00 K/mm3 0.0-0.1 N MANUAL DIFF REQUIRED (test code = MDIFF) NO FE W/TOTAL IRON BINDING CAP.2019-03-05 16:23:00* Test Item Value Reference Range Interpretation Comments SERUM IRON (test code = IRON) 32 ug/dL 50-175 L TOTAL IRON BINDING CAPACITY (test code = TIBC) 201 mcg/dL 250-450 L IRON SATURATION (test code = FESAT) 15.92 % 13-45 N [id number] 07:24:00* Test Item Value Reference Range Interpretation Comments PHOSPHORUS (test code = PHOS) 1.1 mg/dL 2.5-4.9 L [id number] 07:24:00* Test Item Value Reference Range Interpretation Comments MAGNESIUM (test code = MAG) 1.9 mg/dL 1.8-2.4 N [id number] 07:17:00* Test Item Value Reference Range Interpretation Comments PHOSPHORUS (test code = PHOS) mg/dL 2.5-4.9 [id number] 07:17:00* Test Item Value Reference Range Interpretation Comments MAGNESIUM (test code = MAG) 1.9 mg/dL 1.8-2.4 N HEPATIC FUNCTION [id number] 18:34:00* Test Item Value Reference Range Interpretation Comments TOTAL PROTEIN (test code = PROT) 5.6 gram/dL 6.4-8.2 L ALBUMIN (test code = ALB) 2.4 g/dL 3.4-5.0 L GLOBULIN (test code = GLOB) 3.2 gram/dL 2.7-4.2 N ALBUMIN/GLOBULIN RATIO (test code = A/G) 0.8 0.75-1.50 N BILIRUBIN TOTAL (test code = BILT) 1.10 mg/dL 0.0-1.0 H BILIRUBIN DIRECT (test code = BILD) 0.69 mg/dL 0.0-0.20 H SGOT/AST (test code = AST) 38 IUnit/L 15-37 H SGPT/ALT (test code = ALT) 31 IUnit/L 12-78 N ALKALINE PHOSPHATASE TOTAL (test code = ALKP) 82 IUnit/L 45-117 N Note change in reference range due to change in reagent. VENOUS BLOOD [id number] 17:00:00* Test Item Value Reference Range Interpretation Comments VENOUS BLOOD GAS PH (test code = PHV) 7.49 7.30-7.40 H VENOUS BLOOD GAS PCO2 (test code = PCO2V) 29.0 mm Hg 39.0-51.0 LL Results called to and read back by Monica - 03/03/2019; by Murphy VENOUS BLOOD GAS PO2 (test code = PO2V) 44.2 mm Hg 30.0-50.0 N VBG HCO3 (test code = HCO3V) 21.4 mmol/L 17.0-30.0 N VBG BASE EXCESS (test code = ISAIAH) -1.5 mmol/L -5.0-5.0 N VENOUS BLOOD GAS O2 SAT. (test code = O2SATV) 81 % 94-98 LL VENOUS BLOOD GAS FIO2 (test code = FIO2V) 21.0 PT. HGB (test code = PHGBVBG) 9.2 gram/dL 11.5-15.5 L VENOUS BLOOD GAS SITE (test code = SITEV) LR HEMATOCRIT (test code = HCT/VBG) 27 % 42-52 L HGB O2 SAT (test code = HBOSAT) 80.7 % 94.00-98.00 L CARBOXYHEMOGLOBIN (test code = HOHGBT) 0.3 %totalHg 0.5-1.5 LL Results called to and read back by Monica 03/03/2019; by Murphy METHEMOGLOBIN (test code = METHGB) 0.4 % 0.0-1.50 N CBC W/MANUAL [id number] 16:59:00* Test Item Value Reference Range Interpretation Comments WHITE BLOOD CELL (test code = WBC) 6.7 K/mm3 4.5-12.5 N RED BLOOD CELL (test code = RBC) 2.98 mill/mm3 3.7-5.2 L HEMOGLOBIN (test code = HGB) 8.8 gram/dL 11.5-15.5 L HEMATOCRIT (test code = HCT) 28.5 % 36.0-46.0 L MEAN CELL VOLUME (test code = MCV) 95.6 fL 80-98 N MEAN CELL HGB (test code = MCH) 29.5 picogram 27.0-33.0 N MEAN CELL HGB CONCETRATION (test code = MCHC) 30.9 gram/dL 33.0-36. 0 L RED CELL DISTRIBUTION WIDTH (test code = RDW) 16.9 % 11.6-16. 2 H RED CELL DISTRIBUTION WIDTH SD (test code = RDW-SD) 56.1 fL 37 .0-51.0 H PLATELET COUNT (test code = PLT) 119 K/mm3 150-450 L MEAN PLATELET VOLUME (test code = MPV) 9.7 fL 6.7-11.0 N IMMATURE GRANULOCYTE % (test code = IG%) 1.6 % 0.0-5.0 N NUCLEATED RBC % (test code = NRBC%) 0.7 % 0-0 H NEUTROPHIL # (test code = NT#) 4.12 K/mm3 1.8-7.7 N IMMATURE GRANULOCYTE # (test code = IG#) 0.11 x10 3/uL 0-0.03 H LYMPHOCYTE # (test code = LY#) 0.99 K/mm3 1.0-5.0 L MONOCYTE # (test code = MO#) 1.32 K/mm3 0-0.8 H EOSINOPHIL # (test code = EO#) 0.11 K/mm3 0.0-0.5 N BASOPHIL # (test code = BA#) 0.03 K/mm3 0.0-0.2 N NUCLEATED RBC # (test code = NRBC#) 0.05 K/mm3 0.0-0.1 N MANUAL DIFF REQUIRED (test code = MDIFF) YES STAIN ACCEPTABILITY (test code = STN ACCEPTABLE) STAIN ACCEPTABLE TOTAL CELLS COUNTED (test code = TCC) 112 #CELLS SEGMENTED NEUTROPHILS (test code = SEG) 71.4 % 39-69 H BAND NEUTROPHIL (test code = BAND) 0 % 0-10 N LYMPHOCYTE (test code = LYMPH) 18.8 % 25-55 L REACTIVE LYMPH (test code = RELYMPH) 0 % MONOCYTE (test code = MON) 8.0 % 0-10 N EOSINOPHIL (test code = EOS) 0.9 % 0.0-5.0 N BASOPHIL (test code = BASO) 0 % 0-1.0 N METAMYELOCYTE (test code = META) 0 % 0-0 N MYELOCYTE (test code = MYELO) 0 % 0.0-0.0 N PROMYELOCYTE (test code = PROM) 0 % 0-0 N POLYCHROMASIA (test code = POLC) 1+ HYPOCHROMIA (test code = HYPO) 1+ ANISOCYTOSIS (test code = ANISO) 1+ MACROCYTOSIS (test code = MACR) 1+ PLATELET ESTIMATE (test code = PLTEST) DECREASED PLATELET MORPHOLOGY (test code = PLTMORPH) NORMAL IMMATURE FORMS (test code = IMMAT) 0.9 % BASIC METABOLIC [id number] 16:46:00* Test Item Value Reference Range Interpretation Comments SODIUM (test code = NA) 135 mmol/L 136-145 L RESU LT VERIFIED BY REPEAT ANALYSIS POTASSIUM (test code = K) 3.4 mmol/L 3.5-5.1 L CHLORIDE (test code = CL) 106.0 mmol/L 98-107 N CARBON DIOXIDE (test code = CO2) 23.0 mmol/L 21-32 N ANION GAP (test code = GAP) 9.4 10-20 L GLUCOSE (test code = GLU) 144 mg/dL 74-106 H BLOOD UREA NITROGEN (test code = BUN) 6 mg/dL 7-18 L GLOMERULAR FILTRATION RATE (test code = GFR) > 60 mL/min >=60 Estimated GFR by using Modified MDRD formula.Chronic kidney disease is defined as either kidney damageor GFR <60 mL/min/1.73 m2 for >3 months. CREATININE (test code = CREAT) 0.50 mg/dL 0.55-1.02 L Note change in reference range due to change in reagent. BUN/CREATININE RATIO (test code = BUN/CREA) 12.0 10-20 N CALCIUM (test code = CA) 7.5 mg/dL 8.5-10.1 L CBC W/MANUAL [id number] 16:26:00* Test Item Value Reference Range Interpretation Comments WHITE BLOOD CELL (test code = WBC) 6.7 K/mm3 4.5-12.5 N RED BLOOD CELL (test code = RBC) 2.98 mill/mm3 3.7-5.2 L HEMOGLOBIN (test code = HGB) 8.8 gram/dL 11.5-15.5 L HEMATOCRIT (test code = HCT) 28.5 % 36.0-46.0 L MEAN CELL VOLUME (test code = MCV) 95.6 fL 80-98 N MEAN CELL HGB (test code = MCH) 29.5 picogram 27.0-33.0 N MEAN CELL HGB CONCETRATION (test code = MCHC) 30.9 gram/dL 33.0-36. 0 L RED CELL DISTRIBUTION WIDTH (test code = RDW) 16.9 % 11.6-16. 2 H RED CELL DISTRIBUTION WIDTH SD (test code = RDW-SD) 56.1 fL 37 .0-51.0 H PLATELET COUNT (test code = PLT) 119 K/mm3 150-450 L MEAN PLATELET VOLUME (test code = MPV) 9.7 fL 6.7-11.0 N IMMATURE GRANULOCYTE % (test code = IG%) 1.6 % 0.0-5.0 N NUCLEATED RBC % (test code = NRBC%) 0.7 % 0-0 H NEUTROPHIL # (test code = NT#) 4.12 K/mm3 1.8-7.7 N IMMATURE GRANULOCYTE # (test code = IG#) 0.11 x10 3/uL 0-0.03 H LYMPHOCYTE # (test code = LY#) 0.99 K/mm3 1.0-5.0 L MONOCYTE # (test code = MO#) 1.32 K/mm3 0-0.8 H EOSINOPHIL # (test code = EO#) 0.11 K/mm3 0.0-0.5 N BASOPHIL # (test code = BA#) 0.03 K/mm3 0.0-0.2 N NUCLEATED RBC # (test code = NRBC#) 0.05 K/mm3 0.0-0.1 N MANUAL DIFF REQUIRED (test code = MDIFF) YES STAIN ACCEPTABILITY (test code = STN ACCEPTABLE) TOTAL CELLS COUNTED (test code = TCC) #CELLS SEGMENTED NEUTROPHILS (test code = SEG) % 39-69 LYMPHOCYTE (test code = LYMPH) % 25-55 MONOCYTE (test code = MON) % 0-10 MORPHOLOGY COMMENT (test code = MOC) PLATELET ESTIMATE (test code = PLTEST) PLATELET MORPHOLOGY (test code = PLTMORPH) CBC W/MANUAL [id number] 16:25:00* Test Item Value Reference Range Interpretation Comments WHITE BLOOD CELL (test code = WBC) 6.7 K/mm3 4.5-12.5 N RED BLOOD CELL (test code = RBC) 2.98 mill/mm3 3.7-5.2 L HEMOGLOBIN (test code = HGB) 8.8 gram/dL 11.5-15.5 L HEMATOCRIT (test code = HCT) 28.5 % 36.0-46.0 L MEAN CELL VOLUME (test code = MCV) 95.6 fL 80-98 N MEAN CELL HGB (test code = MCH) 29.5 picogram 27.0-33.0 N MEAN CELL HGB CONCETRATION (test code = MCHC) 30.9 gram/dL 33.0-36. 0 L RED CELL DISTRIBUTION WIDTH (test code = RDW) 16.9 % 11.6-16. 2 H RED CELL DISTRIBUTION WIDTH SD (test code = RDW-SD) 56.1 fL 37 .0-51.0 H PLATELET COUNT (test code = PLT) 119 K/mm3 150-450 L MEAN PLATELET VOLUME (test code = MPV) 9.7 fL 6.7-11.0 N IMMATURE GRANULOCYTE % (test code = IG%) 1.6 % 0.0-5.0 N NUCLEATED RBC % (test code = NRBC%) 0.7 % 0-0 H NEUTROPHIL # (test code = NT#) 4.12 K/mm3 1.8-7.7 N IMMATURE GRANULOCYTE # (test code = IG#) 0.11 x10 3/uL 0-0.03 H LYMPHOCYTE # (test code = LY#) 0.99 K/mm3 1.0-5.0 L MONOCYTE # (test code = MO#) 1.32 K/mm3 0-0.8 H EOSINOPHIL # (test code = EO#) 0.11 K/mm3 0.0-0.5 N BASOPHIL # (test code = BA#) 0.03 K/mm3 0.0-0.2 N NUCLEATED RBC # (test code = NRBC#) 0.05 K/mm3 0.0-0.1 N MANUAL DIFF REQUIRED (test code = MDIFF) YES STAIN ACCEPTABILITY (test code = STN ACCEPTABLE) TOTAL CELLS COUNTED (test code = TCC) #CELLS SEGMENTED NEUTROPHILS (test code = SEG) % 39-69 LYMPHOCYTE (test code = LYMPH) % 25-55 MONOCYTE (test code = MON) % 0-10 EOSINOPHIL (test code = EOS) % 0.0-5.0 CABOT RINGS (test code = CAB) MORPHOLOGY COMMENT (test code = MOC) PLATELET ESTIMATE (test code = PLTEST) PLATELET MORPHOLOGY (test code = PLTMORPH) CBC W/MANUAL [id number] 16:25:00* Test Item Value Reference Range Interpretation Comments WHITE BLOOD CELL (test code = WBC) 6.7 K/mm3 4.5-12.5 N RED BLOOD CELL (test code = RBC) 2.98 mill/mm3 3.7-5.2 L HEMOGLOBIN (test code = HGB) 8.8 gram/dL 11.5-15.5 L HEMATOCRIT (test code = HCT) 28.5 % 36.0-46.0 L MEAN CELL VOLUME (test code = MCV) 95.6 fL 80-98 N MEAN CELL HGB (test code = MCH) 29.5 picogram 27.0-33.0 N MEAN CELL HGB CONCETRATION (test code = MCHC) 30.9 gram/dL 33.0-36. 0 L RED CELL DISTRIBUTION WIDTH (test code = RDW) 16.9 % 11.6-16. 2 H RED CELL DISTRIBUTION WIDTH SD (test code = RDW-SD) 56.1 fL 37 .0-51.0 H PLATELET COUNT (test code = PLT) 119 K/mm3 150-450 L MEAN PLATELET VOLUME (test code = MPV) 9.7 fL 6.7-11.0 N IMMATURE GRANULOCYTE % (test code = IG%) 1.6 % 0.0-5.0 N NUCLEATED RBC % (test code = NRBC%) 0.7 % 0-0 H NEUTROPHIL # (test code = NT#) 4.12 K/mm3 1.8-7.7 N IMMATURE GRANULOCYTE # (test code = IG#) 0.11 x10 3/uL 0-0.03 H LYMPHOCYTE # (test code = LY#) 0.99 K/mm3 1.0-5.0 L MONOCYTE # (test code = MO#) 1.32 K/mm3 0-0.8 H EOSINOPHIL # (test code = EO#) 0.11 K/mm3 0.0-0.5 N BASOPHIL # (test code = BA#) 0.03 K/mm3 0.0-0.2 N NUCLEATED RBC # (test code = NRBC#) 0.05 K/mm3 0.0-0.1 N MANUAL DIFF REQUIRED (test code = MDIFF) YES STAIN ACCEPTABILITY (test code = STN ACCEPTABLE) TOTAL CELLS COUNTED (test code = TCC) #CELLS SEGMENTED NEUTROPHILS (test code = SEG) % 39-69 LYMPHOCYTE (test code = LYMPH) % 25-55 MONOCYTE (test code = MON) % 0-10 EOSINOPHIL (test code = EOS) % 0.0-5.0 CABOT RINGS (test code = CAB) MORPHOLOGY COMMENT (test code = MOC) PLATELET ESTIMATE (test code = PLTEST) PLATELET MORPHOLOGY (test code = PLTMORPH) CBC W/MANUAL [id number] 16:25:00* Test Item Value Reference Range Interpretation Comments WHITE BLOOD CELL (test code = WBC) 6.7 K/mm3 4.5-12.5 N RED BLOOD CELL (test code = RBC) 2.98 mill/mm3 3.7-5.2 L HEMOGLOBIN (test code = HGB) 8.8 gram/dL 11.5-15.5 L HEMATOCRIT (test code = HCT) 28.5 % 36.0-46.0 L MEAN CELL VOLUME (test code = MCV) 95.6 fL 80-98 N MEAN CELL HGB (test code = MCH) 29.5 picogram 27.0-33.0 N MEAN CELL HGB CONCETRATION (test code = MCHC) 30.9 gram/dL 33.0-36. 0 L RED CELL DISTRIBUTION WIDTH (test code = RDW) 16.9 % 11.6-16. 2 H RED CELL DISTRIBUTION WIDTH SD (test code = RDW-SD) 56.1 fL 37 .0-51.0 H PLATELET COUNT (test code = PLT) 119 K/mm3 150-450 L MEAN PLATELET VOLUME (test code = MPV) 9.7 fL 6.7-11.0 N IMMATURE GRANULOCYTE % (test code = IG%) 1.6 % 0.0-5.0 N NUCLEATED RBC % (test code = NRBC%) 0.7 % 0-0 H NEUTROPHIL # (test code = NT#) 4.12 K/mm3 1.8-7.7 N IMMATURE GRANULOCYTE # (test code = IG#) 0.11 x10 3/uL 0-0.03 H LYMPHOCYTE # (test code = LY#) 0.99 K/mm3 1.0-5.0 L MONOCYTE # (test code = MO#) 1.32 K/mm3 0-0.8 H EOSINOPHIL # (test code = EO#) 0.11 K/mm3 0.0-0.5 N BASOPHIL # (test code = BA#) 0.03 K/mm3 0.0-0.2 N NUCLEATED RBC # (test code = NRBC#) 0.05 K/mm3 0.0-0.1 N MANUAL DIFF REQUIRED (test code = MDIFF) YES STAIN ACCEPTABILITY (test code = STN ACCEPTABLE) TOTAL CELLS COUNTED (test code = TCC) #CELLS SEGMENTED NEUTROPHILS (test code = SEG) % 39-69 LYMPHOCYTE (test code = LYMPH) % 25-55 MONOCYTE (test code = MON) % 0-10 EOSINOPHIL (test code = EOS) % 0.0-5.0 MORPHOLOGY COMMENT (test code = MOC) PLATELET ESTIMATE (test code = PLTEST) PLATELET MORPHOLOGY (test code = PLTMORPH) CBC W/MANUAL [id number] 16:25:00* Test Item Value Reference Range Interpretation Comments WHITE BLOOD CELL (test code = WBC) 6.7 K/mm3 4.5-12.5 N RED BLOOD CELL (test code = RBC) 2.98 mill/mm3 3.7-5.2 L HEMOGLOBIN (test code = HGB) 8.8 gram/dL 11.5-15.5 L HEMATOCRIT (test code = HCT) 28.5 % 36.0-46.0 L MEAN CELL VOLUME (test code = MCV) 95.6 fL 80-98 N MEAN CELL HGB (test code = MCH) 29.5 picogram 27.0-33.0 N MEAN CELL HGB CONCETRATION (test code = MCHC) 30.9 gram/dL 33.0-36. 0 L RED CELL DISTRIBUTION WIDTH (test code = RDW) 16.9 % 11.6-16. 2 H RED CELL DISTRIBUTION WIDTH SD (test code = RDW-SD) 56.1 fL 37 .0-51.0 H PLATELET COUNT (test code = PLT) 119 K/mm3 150-450 L MEAN PLATELET VOLUME (test code = MPV) 9.7 fL 6.7-11.0 N IMMATURE GRANULOCYTE % (test code = IG%) 1.6 % 0.0-5.0 N NUCLEATED RBC % (test code = NRBC%) 0.7 % 0-0 H NEUTROPHIL # (test code = NT#) 4.12 K/mm3 1.8-7.7 N IMMATURE GRANULOCYTE # (test code = IG#) 0.11 x10 3/uL 0-0.03 H LYMPHOCYTE # (test code = LY#) 0.99 K/mm3 1.0-5.0 L MONOCYTE # (test code = MO#) 1.32 K/mm3 0-0.8 H EOSINOPHIL # (test code = EO#) 0.11 K/mm3 0.0-0.5 N BASOPHIL # (test code = BA#) 0.03 K/mm3 0.0-0.2 N NUCLEATED RBC # (test code = NRBC#) 0.05 K/mm3 0.0-0.1 N MANUAL DIFF REQUIRED (test code = MDIFF) YES STAIN ACCEPTABILITY (test code = STN ACCEPTABLE) TOTAL CELLS COUNTED (test code = TCC) #CELLS SEGMENTED NEUTROPHILS (test code = SEG) % 39-69 LYMPHOCYTE (test code = LYMPH) % 25-55 MONOCYTE (test code = MON) % 0-10 EOSINOPHIL (test code = EOS) % 0.0-5.0 CABOT RINGS (test code = CAB) MORPHOLOGY COMMENT (test code = MOC) PLATELET ESTIMATE (test code = PLTEST) PLATELET MORPHOLOGY (test code = PLTMORPH) PROCALCITONIN (PCT)2019-03-03 08:23:00* Test Item Value Reference Range Interpretation Comments PROCALCITONIN (PCT) (test code = PROCAL) 0.17 ng/ml Concentration Interpretation (ng/mL) <0.51 Sepsis is not likely. Local bacterial infection is possible. (LOW RISK for progression to Sepsis) 0.51 - 2.00 Sepsis is possible, but other conditions are known to elevate PCT as well. (MODERATE RISK for progression to Sepsis) > 2.00 Sepsis is likely, unless other causes are known. (HIGH RISK for progression to Severe Sepsis or Septic Shock) 10.00 High likelihood of Severe Sepsis or Septic or higher Shock. *Increased PCT levels may not always be related to systemic bacterial infection.*Low PCT levels do not automatically exclude the presence of bacterial infection.*All results should be interpreted taking into account the patients history. COMPREHENSIVE METABOLIC [id number] 08:22:00* Test Item Value Reference Range Interpretation Comments SODIUM (test code = NA) 141 mmol/L 136-145 N POTASSIUM (test code = K) 2.1 mmol/L 3.5-5.1 LL Re sults called to [id number] by VTAMARA 03/03/19 0822Critical results verified and read back by Nurse? Y CHLORIDE (test code = CL) 106.0 mmol/L 98-107 N CARBON DIOXIDE (test code = CO2) 21.0 mmol/L 21-32 N ANION GAP (test code = GAP) 16.1 10-20 N GLUCOSE (test code = GLU) 81 mg/dL 74-106 N BLOOD UREA NITROGEN (test code = BUN) 7 mg/dL 7-18 N GLOMERULAR FILTRATION RATE (test code = GFR) > 60 mL/min >=60 Estimated GFR by using Modified MDRD formula.Chronic kidney disease is defined as either kidney damageor GFR <60 mL/min/1.73 m2 for >3 months. CREATININE (test code = CREAT) 0.50 mg/dL 0.55-1.02 L Note change in reference range due to change in reagent. BUN/CREATININE RATIO (test code = BUN/CREA) 14.0 10-20 N TOTAL PROTEIN (test code = PROT) 5.5 gram/dL 6.4-8.2 L ALBUMIN (test code = ALB) 2.4 g/dL 3.4-5.0 L GLOBULIN (test code = GLOB) 3.1 gram/dL 2.7-4.2 N ALBUMIN/GLOBULIN RATIO (test code = A/G) 0.8 0.75-1.50 N CALCIUM (test code = CA) 7.3 mg/dL 8.5-10.1 L BILIRUBIN TOTAL (test code = BILT) 1.50 mg/dL 0.0-1.0 H SGOT/AST (test code = AST) 61 IUnit/L 15-37 H SGPT/ALT (test code = ALT) 37 IUnit/L 12-78 N ALKALINE PHOSPHATASE TOTAL (test code = ALKP) 74 IUnit/L 45-117 N Note change in reference range due to change in reagent. LIPID PROFILE (CORONARY RISK)2019-03-03 08:22:00* Test Item Value Reference Range Interpretation Comments TRIGLYCERIDES (test code = TRIG) 83 mg/dL 20-150 N CHOLESTEROL (test code = CHOL) 118 mg/dL 0-200 N CHOLESTEROL/HDL RATIO (test code = CHOLHDL) 2.0 RATIO 0-4.9 N RISK ASSOCIATED WITH CHOL/HDL RATIOS: Risk Male Female1/2 AVERAGE 3.43 3.27AVERAGE 4.97 4.442X AVERAGE 9.55 7.053X AVERAGE 23.39 11.04 REFERENCE VALUE IS RELATED TO RISK LEVELS ASRECOMMENDED BY THE [facility]. HEART, LUNG, AND BLOOD INST. HDL CHOLESTEROL (test code = HDL) 59 mg/dL 40-60 N LIPOPROTEIN LDL (test code = LDL) 50 mg/dL 100-129 L Reference Interval: mg/dL mmol/L Optimal <100 <2.6Near/above optimal 100-129 2.6- 3.3Borderline High 130-159 3.4-4.1High 160-189 4.1-4.9Very High >=190 >=4.9========= This LDL result is a direct measurement.========= [id number] 08:22:00* Test Item Value Reference Range Interpretation Comments MAGNESIUM (test code = MAG) 1.5 mg/dL 1.8-2.4 L CBC W/AUTO [id number] 08:04:00* Test Item Value Reference Range Interpretation Comments WHITE BLOOD CELL (test code = WBC) 5.9 K/mm3 4.5-12.5 N RED BLOOD CELL (test code = RBC) 2.68 mill/mm3 3.7-5.2 L HEMOGLOBIN (test code = HGB) 7.7 gram/dL 11.5-15.5 L HEMATOCRIT (test code = HCT) 25.8 % 36.0-46.0 L MEAN CELL VOLUME (test code = MCV) 96.3 fL 80-98 N MEAN CELL HGB (test code = MCH) 28.7 picogram 27.0-33.0 N MEAN CELL HGB CONCETRATION (test code = MCHC) 29.8 gram/dL 33.0-36. 0 L RED CELL DISTRIBUTION WIDTH (test code = RDW) 16.5 % 11.6-16. 2 H RED CELL DISTRIBUTION WIDTH SD (test code = RDW-SD) 56.0 fL 37 .0-51.0 H PLATELET COUNT (test code = PLT) 97 K/mm3 150-450 L MEAN PLATELET VOLUME (test code = MPV) 10.1 fL 6.7-11.0 N NEUTROPHIL % (test code = NT%) 65.7 % 39.0-69.0 N IMMATURE GRANULOCYTE % (test code = IG%) 1.9 % 0.0-5.0 N LYMPHOCYTE % (test code = LY%) 15.0 % 25.0-55.0 L MONOCYTE % (test code = MO%) 15.0 % 0.0-10.0 H EOSINOPHIL % (test code = EO%) 1.9 % 0.0-5.0 N BASOPHIL % (test code = BA%) 0.5 % 0.0-1.0 N NUCLEATED RBC % (test code = NRBC%) 0.5 % 0-0 H NEUTROPHIL # (test code = NT#) 3.90 K/mm3 1.8-7.7 N IMMATURE GRANULOCYTE # (test code = IG#) 0.11 x10 3/uL 0-0.03 H LYMPHOCYTE # (test code = LY#) 0.89 K/mm3 1.0-5.0 L MONOCYTE # (test code = MO#) 0.89 K/mm3 0-0.8 H EOSINOPHIL # (test code = EO#) 0.11 K/mm3 0.0-0.5 N BASOPHIL # (test code = BA#) 0.03 K/mm3 0.0-0.2 N NUCLEATED RBC # (test code = NRBC#) 0.03 K/mm3 0.0-0.1 N MANUAL DIFF REQUIRED (test code = MDIFF) NO, ONLY SCAN NEEDED DIFFERENTIAL [id number] 08:04:00* Test Item Value Reference Range Interpretation Comments STAIN ACCEPTABILITY (test code = STN ACCEPTABLE) MORPHOLOGY COMMENT (test code = MOC) PLATELET ESTIMATE (test code = PLTEST) PLATELET MORPHOLOGY (test code = PLTMORPH) CBC W/AUTO [id number] 08:02:00* Test Item Value Reference Range Interpretation Comments WHITE BLOOD CELL (test code = WBC) 5.9 K/mm3 4.5-12.5 N RED BLOOD CELL (test code = RBC) 2.68 mill/mm3 3.7-5.2 L HEMOGLOBIN (test code = HGB) 7.7 gram/dL 11.5-15.5 L HEMATOCRIT (test code = HCT) 25.8 % 36.0-46.0 L MEAN CELL VOLUME (test code = MCV) 96.3 fL 80-98 N MEAN CELL HGB (test code = MCH) 28.7 picogram 27.0-33.0 N MEAN CELL HGB CONCETRATION (test code = MCHC) 29.8 gram/dL 33.0-36. 0 L RED CELL DISTRIBUTION WIDTH (test code = RDW) 16.5 % 11.6-16. 2 H RED CELL DISTRIBUTION WIDTH SD (test code = RDW-SD) 56.0 fL 37 .0-51.0 H PLATELET COUNT (test code = PLT) 97 K/mm3 150-450 L MEAN PLATELET VOLUME (test code = MPV) 10.1 fL 6.7-11.0 N NEUTROPHIL % (test code = NT%) 65.7 % 39.0-69.0 N IMMATURE GRANULOCYTE % (test code = IG%) 1.9 % 0.0-5.0 N LYMPHOCYTE % (test code = LY%) 15.0 % 25.0-55.0 L MONOCYTE % (test code = MO%) 15.0 % 0.0-10.0 H EOSINOPHIL % (test code = EO%) 1.9 % 0.0-5.0 N BASOPHIL % (test code = BA%) 0.5 % 0.0-1.0 N NUCLEATED RBC % (test code = NRBC%) 0.5 % 0-0 H NEUTROPHIL # (test code = NT#) 3.90 K/mm3 1.8-7.7 N IMMATURE GRANULOCYTE # (test code = IG#) 0.11 x10 3/uL 0-0.03 H LYMPHOCYTE # (test code = LY#) 0.89 K/mm3 1.0-5.0 L MONOCYTE # (test code = MO#) 0.89 K/mm3 0-0.8 H EOSINOPHIL # (test code = EO#) 0.11 K/mm3 0.0-0.5 N BASOPHIL # (test code = BA#) 0.03 K/mm3 0.0-0.2 N NUCLEATED RBC # (test code = NRBC#) 0.03 K/mm3 0.0-0.1 N MANUAL DIFF REQUIRED (test code = MDIFF) NO, ONLY SCAN NEEDED DIFFERENTIAL [id number] 08:02:00* Test Item Value Reference Range Interpretation Comments STAIN ACCEPTABILITY (test code = STN ACCEPTABLE) CABOT RINGS (test code = CAB) MORPHOLOGY COMMENT (test code = MOC) PLATELET ESTIMATE (test code = PLTEST) PLATELET MORPHOLOGY (test code = PLTMORPH) CBC W/AUTO [id number] 08:02:00* Test Item Value Reference Range Interpretation Comments WHITE BLOOD CELL (test code = WBC) 5.9 K/mm3 4.5-12.5 N RED BLOOD CELL (test code = RBC) 2.68 mill/mm3 3.7-5.2 L HEMOGLOBIN (test code = HGB) 7.7 gram/dL 11.5-15.5 L HEMATOCRIT (test code = HCT) 25.8 % 36.0-46.0 L MEAN CELL VOLUME (test code = MCV) 96.3 fL 80-98 N MEAN CELL HGB (test code = MCH) 28.7 picogram 27.0-33.0 N MEAN CELL HGB CONCETRATION (test code = MCHC) 29.8 gram/dL 33.0-36. 0 L RED CELL DISTRIBUTION WIDTH (test code = RDW) 16.5 % 11.6-16. 2 H RED CELL DISTRIBUTION WIDTH SD (test code = RDW-SD) 56.0 fL 37 .0-51.0 H PLATELET COUNT (test code = PLT) 97 K/mm3 150-450 L MEAN PLATELET VOLUME (test code = MPV) 10.1 fL 6.7-11.0 N NEUTROPHIL % (test code = NT%) 65.7 % 39.0-69.0 N IMMATURE GRANULOCYTE % (test code = IG%) 1.9 % 0.0-5.0 N LYMPHOCYTE % (test code = LY%) 15.0 % 25.0-55.0 L MONOCYTE % (test code = MO%) 15.0 % 0.0-10.0 H EOSINOPHIL % (test code = EO%) 1.9 % 0.0-5.0 N BASOPHIL % (test code = BA%) 0.5 % 0.0-1.0 N NUCLEATED RBC % (test code = NRBC%) 0.5 % 0-0 H NEUTROPHIL # (test code = NT#) 3.90 K/mm3 1.8-7.7 N IMMATURE GRANULOCYTE # (test code = IG#) 0.11 x10 3/uL 0-0.03 H LYMPHOCYTE # (test code = LY#) 0.89 K/mm3 1.0-5.0 L MONOCYTE # (test code = MO#) 0.89 K/mm3 0-0.8 H EOSINOPHIL # (test code = EO#) 0.11 K/mm3 0.0-0.5 N BASOPHIL # (test code = BA#) 0.03 K/mm3 0.0-0.2 N NUCLEATED RBC # (test code = NRBC#) 0.03 K/mm3 0.0-0.1 N MANUAL DIFF REQUIRED (test code = MDIFF) NO, ONLY SCAN NEEDED DIFFERENTIAL [id number] 08:02:00* Test Item Value Reference Range Interpretation Comments STAIN ACCEPTABILITY (test code = STN ACCEPTABLE) MORPHOLOGY COMMENT (test code = MOC) PLATELET ESTIMATE (test code = PLTEST) PLATELET MORPHOLOGY (test code = PLTMORPH) CBC W/AUTO [id number] 08:02:00* Test Item Value Reference Range Interpretation Comments WHITE BLOOD CELL (test code = WBC) 5.9 K/mm3 4.5-12.5 N RED BLOOD CELL (test code = RBC) 2.68 mill/mm3 3.7-5.2 L HEMOGLOBIN (test code = HGB) 7.7 gram/dL 11.5-15.5 L HEMATOCRIT (test code = HCT) 25.8 % 36.0-46.0 L MEAN CELL VOLUME (test code = MCV) 96.3 fL 80-98 N MEAN CELL HGB (test code = MCH) 28.7 picogram 27.0-33.0 N MEAN CELL HGB CONCETRATION (test code = MCHC) 29.8 gram/dL 33.0-36. 0 L RED CELL DISTRIBUTION WIDTH (test code = RDW) 16.5 % 11.6-16. 2 H RED CELL DISTRIBUTION WIDTH SD (test code = RDW-SD) 56.0 fL 37 .0-51.0 H PLATELET COUNT (test code = PLT) 97 K/mm3 150-450 L MEAN PLATELET VOLUME (test code = MPV) 10.1 fL 6.7-11.0 N NEUTROPHIL % (test code = NT%) 65.7 % 39.0-69.0 N IMMATURE GRANULOCYTE % (test code = IG%) 1.9 % 0.0-5.0 N LYMPHOCYTE % (test code = LY%) 15.0 % 25.0-55.0 L MONOCYTE % (test code = MO%) 15.0 % 0.0-10.0 H EOSINOPHIL % (test code = EO%) 1.9 % 0.0-5.0 N BASOPHIL % (test code = BA%) 0.5 % 0.0-1.0 N NUCLEATED RBC % (test code = NRBC%) 0.5 % 0-0 H NEUTROPHIL # (test code = NT#) 3.90 K/mm3 1.8-7.7 N IMMATURE GRANULOCYTE # (test code = IG#) 0.11 x10 3/uL 0-0.03 H LYMPHOCYTE # (test code = LY#) 0.89 K/mm3 1.0-5.0 L MONOCYTE # (test code = MO#) 0.89 K/mm3 0-0.8 H EOSINOPHIL # (test code = EO#) 0.11 K/mm3 0.0-0.5 N BASOPHIL # (test code = BA#) 0.03 K/mm3 0.0-0.2 N NUCLEATED RBC # (test code = NRBC#) 0.03 K/mm3 0.0-0.1 N MANUAL DIFF REQUIRED (test code = MDIFF) NO, ONLY SCAN NEEDED DIFFERENTIAL [id number] 08:02:00* Test Item Value Reference Range Interpretation Comments STAIN ACCEPTABILITY (test code = STN ACCEPTABLE) CABOT RINGS (test code = CAB) MORPHOLOGY COMMENT (test code = MOC) PLATELET ESTIMATE (test code = PLTEST) PLATELET MORPHOLOGY (test code = PLTMORPH) - US ABDOMEN [id number] 16:49:00 Name: ALICIA KING [facility] : 1950 Age/S: 68 / F [address] [facility] Unit #: [id number] Loc: [place] [address] Phys: Valentino Hannon MD Acct: [id number] Dis Date: Status: ADM IN PHONE #: [phone] Exam Date: 03/02/2019 1618 FAX #: [phone] Reason: r/o liver cirrhosis EXAMS: CPT CODE: [id number] US ABDOMEN COMPLETE [id number] HISTORY: Liver cirrhosis evaluation. COMPARISON: CT scan from February 13, 2014. Note: Markedly limited examination due to patient's debility. Evaluation of the liver is nondiagnostic. Gallstone is noted. No pericholecystic fluid or wall thickening. No large ascites. CBD is normal at 6.2 mm. Intrahepatic ducts are not seen. Kidneys demonstrating hyperechogenicity suggesting chronic medical renal disease. Right kidney is measuring 10.4 cm in length. Left kidney measured 10.3 cm in length. No hydronephrosis on either side. No calyceal stones visible. Spleen, aorta, IVC and pancreas are nondiagnostic. IMPRESSION: Extremely limited study due to patient's debility. Nondiagnostic evaluation of the liver, spleen, aorta, IVC and pancreas. Correlate with CT scan. Kidneys are visible and are free from hydr onephrosis and calyceal stones with chronic medical renal disease. Gall bladder is distended well with mobile gallstone without pericholecystic fluid or wall thickening. at 1649 Reported and signed by: Tasia Zayas M.D. CC: Jordy Desai MD; Valentino Hannon MD; Pedro Pablo Weston Technologist: MANDI PETE [email or web address] Date/Time: 03/02/2019 (1648) [email or web address] Orig Print D /T: S: 03/02/2019 (9556) Probe: PAGE 1 Signed Report DRUGS OF ABUSE SCREEN UR 2019-03-02 16:34:00* Test Item Value Reference Range Interpretation Comments UA PH DIPSTICK (test code = CORWIN) 6.0 5.0-8.0 URN COCAINE (test code = COCAURN) NEGATIVE <300 ng/mL URN CANNABINOIDS (test code = CANNABURN) NEGATIVE <50 ng/mL URN AMPHETAMINE (test code = AMPHETURN) NEGATIVE <1000 ng/mL URN BARBITURATE (test code = BARBITURN) NEGATIVE <200 ng/mL URN BENZODIAZEPINE (test code = BENZOURN) NEGATIVE <200 ng/mL URN OPIATES (test code = OPIATURN) POSITIVE <300 ng/mL A This test provides only a preliminary test result. A morespecific alternate chemical method must be used in order toobtain a confirmed analytical result. Gas chromatography/mass spectrometry (GC/MS) is thepreferred confirmatory method. Other chemical confirmationmethods are available. Clinical consideration and professional judgment should be applied to any drug of abusetest result, particularly when preliminary positive resultsare used.Unconfirmed screening results must not be used fornon-medical purposes (e.g., employment testing, legaltesting). URN PHENCYCLIDINE (PCP) (test code = PHENCURN) NEGATIVE <25 ng/ mL URN METHADONE (test code = METHAURN) NEGATIVE <300 ng/mL URINALYSIS [id number] 16:33:00* Test Item Value Reference Range Interpretation Comments UA COLOR (test code = COLU) ARIAN YELLOW A UA APPEARANCE (test code = APPU) CLEAR CLEAR UA GLUCOSE DIPSTICK (test code = DGLUU) NEGATIVE mg/dL NEGATIVE UA BILIRUBIN DIPSTICK (test code = BILU) NEGATIVE mg/dL NEGATIVE UA KETONE DIPSTICK (test code = KETU) 20 (1+) mg/dL NEGATIVE A UA SPECIFIC GRAVITY (test code = SGU) 1.013 1.001-1.035 UA BLOOD DIPSTICK (test code = JOSE) 1+ (Small) mg/dL NEGATIVE A UA PH DIPSTICK (test code = CORWIN) 6.0 5.0-8.0 UA PROTEIN DIPSTICK (test code = PROU) 30 (1+) mg/dL NEGATIVE A UA UROBILINIOGEN DIPSTICK (test code = URO) 2.0 (1+) mg/dL 0.0-0.2 Previously reported result: 2.0 (1+) mg/dLEdited by: SINDY on 03/02/19:[id number] 1633: UROBIL previously reported as: 2.0 (1+) H mg/dL UA NITRITE DIPSTICK (test code = MATTY) NEGATIVE NEGATIVE UA LEUKOCYTE ESTERASE W REFLEX (test code = LEUUR) NEGATIVE Archie/uL NEGATIVE UA WBC (test code = WBCU) 0-5 per HPF 0-5 UA RBC (test code = RBCU) 0-2 #/HPF 0-5 UA EPITHELIAL CELLS (test code = EPIU) FEW per HPF FEW UA BACTERIA (test code = BACU) MANY #/HPF NONE A UA HYALINE CAST (test code = HYALU) 6-10 #/LPF 0-5 A UA MUCUS (test code = MUCU) FEW #/LPF FEW Urine Source? Clean CatchDRUGS OF ABUSE SCREEN [id number] 16:32:00* Test Item Value Reference Range Interpretation Comments UA PH DIPSTICK (test code = CORWIN) 5.0-8.0 URN COCAINE (test code = COCAURN) NEGATIVE <300 ng/mL URN CANNABINOIDS (test code = CANNABURN) NEGATIVE <50 ng/mL URN AMPHETAMINE (test code = AMPHETURN) NEGATIVE <1000 ng/mL URN BARBITURATE (test code = BARBITURN) NEGATIVE <200 ng/mL URN BENZODIAZEPINE (test code = BENZOURN) NEGATIVE <200 ng/mL URN OPIATES (test code = OPIATURN) POSITIVE <300 ng/mL A This test provides only a preliminary test result. A morespecific alternate chemical method must be used in order toobtain a confirmed analytical result. Gas chromatography/mass spectrometry (GC/MS) is thepreferred confirmatory method. Other chemical confirmationmethods are available. Clinical consideration and professional judgment should be applied to any drug of abusetest result, particularly when preliminary positive resultsare used.Unconfirmed screening results must not be used fornon-medical purposes (e.g., employment testing, legaltesting). URN PHENCYCLIDINE (PCP) (test code = PHENCURN) NEGATIVE <25 ng/ mL URN METHADONE (test code = METHAURN) NEGATIVE <300 ng/mL URINALYSIS [id number] 16:32:00* Test Item Value Reference Range Interpretation Comments UA COLOR (test code = COLU) ARIAN YELLOW A UA APPEARANCE (test code = APPU) CLEAR CLEAR UA GLUCOSE DIPSTICK (test code = DGLUU) NEGATIVE mg/dL NEGATIVE UA BILIRUBIN DIPSTICK (test code = BILU) NEGATIVE mg/dL NEGATIVE UA KETONE DIPSTICK (test code = KETU) 20 (1+) mg/dL NEGATIVE A UA SPECIFIC GRAVITY (test code = SGU) 1.013 1.001-1.035 UA BLOOD DIPSTICK (test code = JOSE) 1+ (Small) mg/dL NEGATIVE A UA PH DIPSTICK (test code = CORWIN) 6.0 5.0-8.0 UA PROTEIN DIPSTICK (test code = PROU) 30 (1+) mg/dL NEGATIVE A UA UROBILINIOGEN DIPSTICK (test code = URO) 2.0 (1+) mg/dL NEGATIVE A UA NITRITE DIPSTICK (test code = MATTY) NEGATIVE NEGATIVE UA LEUKOCYTE ESTERASE W REFLEX (test code = LEUUR) NEGATIVE Archie/uL NEGATIVE UA WBC (test code = WBCU) 0-5 per HPF 0-5 UA RBC (test code = RBCU) 0-2 #/HPF 0-5 UA EPITHELIAL CELLS (test code = EPIU) FEW per HPF FEW UA BACTERIA (test code = BACU) MANY #/HPF NONE A UA HYALINE CAST (test code = HYALU) 6-10 #/LPF 0-5 A UA MUCUS (test code = MUCU) FEW #/LPF FEW Urine Source? Clean CatchVITAMIN [id number] 15:41:00* Test Item Value Reference Range Interpretation Comments VITAMIN B12 (test code = VITB12) 708 pg/mL 193-986 N FOLIC [id number] 15:41:00* Test Item Value Reference Range Interpretation Comments FOLIC ACID (test code = FOL) 13.8 ng/mL 3.10-17.50 N [id number] 15:41:00* Test Item Value Reference Range Interpretation Comments ALCOHOL (test code = ALC) < 3 mg/dL 0.0-3.0 N -- INTERPRETIVE DATA NOTE: POSITIVE SCREENING RESULTS SHOULD BE CONSIDERED PRESUMPTIVE.WHEN COLLECTED FOR MEDICAL PURPOSES ONLY. SPECIMEN WILL NOTBE COLLECTED BY CHAIN OF CUSTODY.IF A CONFIRMATION OF POSITIVE RESULTS IS DESIRED, ACONFIRMATION TEST MUST BE REQUESTED BY THE PHYSICIAN AT ANADDITIONAL CHARGE TO THE PATIENT. [id number] 15:10:00* Test Item Value Reference Range Interpretation Comments AMMONIA (test code = AMM) 37 umol/L 11-32 H [id number] 15:08:00* Test Item Value Reference Range Interpretation Comments SALICYLATE (test code = TG) 4.0 mg/dL 2.8-20.0 N PROTHROMBIN [id number] 15:07:00* Test Item Value Reference Range Interpretation Comments PROTHROMBIN TIME PATIENT (test code = PTP) 13.2 seconds 9.0-14.0 N INTERNATIONAL NORMAL RATIO (test code = INR) 1.1 0.8-1.2 N The therapeutic range for oral anticoagulant therapy formost indications is an international normalized ratio (INR)of between 2.0 and 3.0. The recommended therapeutic INRrange for various clinical situations is listed below: Clinical Situation INR range Pulmonary e mbolism treatment (2.0-3.0)Venous thrombosis treatmentVenous thrombosis prophylaxis (high risk surgery)Prevention of systemic embolism from: Acute myocardial infarction Valvular heart disease Atrial fibrillation Mechanical prosthetic heart valves (2.5-3.5) IS PATIENT ON ANTICOAGULANTS? NTHROMBOPLASTIN TIME [id number] 15:07:00* Test Item Value Reference Range Interpretation Comments THROMBOPLASTIN TIME PARTIAL (test code = PTT) 26.2 seconds 25.0-36. 5 N IS PATIENT ON ANTICOAGULANTS? [facility] [id number] 15:01:00* Test Item Value Reference Range Interpretation Comments HEMOGLOBIN (test code = HGB) 9.0 gram/dL 11.5-15.5 L HEMATOCRIT (test code = HCT) 27.7 % 36.0-46.0 L LACTIC [id number] 09:02:00* Test Item Value Reference Range Interpretation Comments LACTIC ACID (test code = LACT) 0.9 mmol/L 0.4-1.9 N ARTERIAL BLOOD [id number] 06:29:00* Test Item Value Reference Range Interpretation Comments ARTERIAL BLOOD GAS PH (test code = PHA) 7.21 7.35-7.45 L ARTERIAL BLOOD GAS PCO2 (test code = PCO2A) 20.2 mm Hg 35-45 LL Results called to and read back by OLED-T - 03/02/2019; by rony hardwood sawyer ARTERIAL BLOOD GAS PO2 (test code = PO2A) 97.4 mmHg 80-100 N BICARBONATE TOTAL HCO3 (test code = HCO3) 7.9 mmol/L 23.0-27.0 LL Results called to and read back by OLED-T 03/02/2019; by rony hardwood sawyer BASE EXCESS (test code = TIFFANI) -18.1 mmol/L -3.0-5.0 LL Results called to and read back by OLED-T 03/02/2019; by rony hardwood sawyer ABG O2 SATURATION (test code = SATA) 95.3 % 90.0-98.0 N ABG TYPE (test code = TYPEA) Arterial FIO2 (test code = FIO2A) 21.0 ABG SITE (test code = SITEA) Lt BRACHIAL ARTERY HEMATOCRIT (test code = HCT/ABG) 30 % 35-47 L TOTAL HGB (test code = THB) 10.3 gram/dL 11.5-15.5 L HGB O2 SAT (test code = HBOSAT) 94.3 % 94.00-98.00 N CARBOXYHEMOGLOBIN (test code = HOHGBT) 0.3 %totalHg 0.5-1.5 LL Results called to and read back by clarence 06:29 - 03/02/2019; by rony carvalho METHEMOGLOBIN (test code = METHGB) 0.7 % 0.0-1.50 N O2 CONTENT (test code = O2CT) 13.8 % vol 18.0-22.0 L COMPREHENSIVE METABOLIC [id number] 05:47:00* Test Item Value Reference Range Interpretation Comments SODIUM (test code = NA) 135 mmol/L 136-145 L POTASSIUM (test code = K) 3.2 mmol/L 3.5-5.1 L CHLORIDE (test code = CL) 102.0 mmol/L 98-107 N CARBON DIOXIDE (test code = CO2) 9.0 mmol/L 21-32 L ANION GAP (test code = GAP) 27.2 10-20 H GLUCOSE (test code = GLU) 97 mg/dL 74-106 N BLOOD UREA NITROGEN (test code = BUN) 16 mg/dL 7-18 N GLOMERULAR FILTRATION RATE (test code = GFR) > 60 mL/min >=60 Estimated GFR by using Modified MDRD formula.Chronic kidney disease is defined as either kidney damageor GFR <60 mL/min/1.73 m2 for >3 months. CREATININE (test code = CREAT) 0.70 mg/dL 0.55-1.02 N Note change in reference range due to change in reagent. BUN/CREATININE RATIO (test code = BUN/CREA) 22.9 10-20 H TOTAL PROTEIN (test code = PROT) 7.2 gram/dL 6.4-8.2 N ALBUMIN (test code = ALB) 3.4 g/dL 3.4-5.0 N GLOBULIN (test code = GLOB) 3.8 gram/dL 2.7-4.2 N ALBUMIN/GLOBULIN RATIO (test code = A/G) 0.9 0.75-1.50 N CALCIUM (test code = CA) 8.0 mg/dL 8.5-10.1 L BILIRUBIN TOTAL (test code = BILT) 1.20 mg/dL 0.0-1.0 H SGOT/AST (test code = AST) 151 IUnit/L 15-37 H SGPT/ALT (test code = ALT) 69 IUnit/L 12-78 N ALKALINE PHOSPHATASE TOTAL (test code = ALKP) 104 IUnit/L 45-117 N Note change in reference range due to change in reagent. LACTIC [id number] 05:39:00* Test Item Value Reference Range Interpretation Comments LACTIC ACID (test code = LACT) 4.2 mmol/L 0.4-1.9 HH Results called to [id number] by MIGUEL 03/02/19 0539Critical results verified and read back by Nurse? Y COMPREHENSIVE METABOLIC [id number] 05:29:00* Test Item Value Reference Range Interpretation Comments SODIUM (test code = NA) 135 mmol/L 136-145 L POTASSIUM (test code = K) 3.2 mmol/L 3.5-5.1 L CHLORIDE (test code = CL) 102.0 mmol/L 98-107 N CARBON DIOXIDE (test code = CO2) mmol/L 21-32 ANION GAP (test code = GAP) 10-20 GLUCOSE (test code = GLU) mg/dL 74-106 BLOOD UREA NITROGEN (test code = BUN) mg/dL 7-18 GLOMERULAR FILTRATION RATE (test code = GFR) mL/min >=60 CREATININE (test code = CREAT) mg/dL 0.55-1.02 BUN/CREATININE RATIO (test code = BUN/CREA) 10-20 TOTAL PROTEIN (test code = PROT) gram/dL 6.4-8.2 ALBUMIN (test code = ALB) g/dL 3.4-5.0 GLOBULIN (test code = GLOB) gram/dL 2.7-4.2 ALBUMIN/GLOBULIN RATIO (test code = A/G) 0.75-1.50 CALCIUM (test code = CA) mg/dL 8.5-10.1 BILIRUBIN TOTAL (test code = BILT) mg/dL 0.0-1.0 SGOT/AST (test code = AST) IUnit/L 15-37 SGPT/ALT (test code = ALT) IUnit/L 12-78 ALKALINE PHOSPHATASE TOTAL (test code = ALKP) IUnit/L 45-117 ARTERIAL BLOOD [id number] 03:46:00* Test Item Value Reference Range Interpretation Comments ARTERIAL BLOOD GAS PH (test code = PHA) 7.08 7.35-7.45 L L Results called to and read back by [facility] 03/02/2019; by RONY SCANNING MANAGER ARTERIAL BLOOD GAS PCO2 (test code = PCO2A) 29.0 mm Hg 35-45 L ARTERIAL BLOOD GAS PO2 (test code = PO2A) < 44.2 mmHg 80-100 LL Results called to and read back by [facility] 03/02/2019; by RONY SCANNING MANAGER BICARBONATE TOTAL HCO3 (test code = HCO3) 8.4 mmol/L 23.0-27.0 LL Results called to and read back by [facility] 03/02/2019; by RONY SCANNING MANAGER BASE EXCESS (test code = TIFFANI) -20.2 mmol/L -3.0-5.0 LL Results called to and read back by [facility] 03/02/2019; by RONY SCANNING MANAGER ABG O2 SATURATION (test code = SATA) 61.5 % 90.0-98.0 LL ABG TYPE (test code = TYPEA) Arterial FIO2 (test code = FIO2A) 40.0 ABG SITE (test code = SITEA) IVC HEMATOCRIT (test code = HCT/ABG) 32 % 35-47 L TOTAL HGB (test code = THB) 11.0 gram/dL 11.5-15.5 L HGB O2 SAT (test code = HBOSAT) 60.8 % 94.00-98.00 LL CARBOXYHEMOGLOBIN (test code = HOHGBT) 0.6 %totalHg 0.5-1.5 N METHEMOGLOBIN (test code = METHGB) 0.5 % 0.0-1.50 N - XR SHOULDER 2 + V [id number] 03:34:00 FAX: Bon Lobo MD [phone] [place]: B St: REG FAX: Cori Begum MD [phone] Name: ALICIA KING [facility] : 1950 Age/S: 68/F [address] [facility] Unit #: [id number] Loc: [place] [address] Phys: Cori Begum MD Acct: [id number] Dis Date: Status: REG ER PHONE #: [phone] Exam Date: 03/02/2019331 FAX #: [phone] Reason: post reduction EXAMS: CPT CODE: [id number] XR SHOULDER 2 + V RT 67499 - XR SHOULDER 2 + V RT, 03/02/2019 3:29 AM Reason F or Examination: post reduction Comparison: Exam of earlier today Location: R16: Findings: Single postred uction image demonstrates likely successful reduction of dislocation, sue ent positioning/technique limits evaluation for fracture. Ar thropathy of the acromioclavicular joint is seen. Aortic knob calcificati ons are noted. Impression: Single postreductio n image demonstrates likely successful reduction of dislocation, patient positioning/technique limits evaluation for fracture. Arthropathy of the acromioclavicular joint is seen. Aortic knob calcif ications are noted. at 0334 Reported and signed by: Iona Mcgovern M.D. CC: Bon [place]; Cori Begum MD Technologist: DARLENE LE RT(R) Trnscrd Date/Time/By: 03/02/2019 ( 333) : By: [email or web address] Orig Print D/T: S: 03/02/2019 (0334) PAGE 1 Signed Report CBC W/O [id number] 01:57:00* Test Item Value Reference Range Interpretation Comments WHITE BLOOD CELL (test code = WBC) 8.6 K/mm3 4.5-12.5 N RED BLOOD CELL (test code = RBC) 3.54 mill/mm3 3.7-5.2 L HEMOGLOBIN (test code = HGB) 10.6 gram/dL 11.5-15.5 L HEMATOCRIT (test code = HCT) 35.6 % 36.0-46.0 L MEAN CELL VOLUME (test code = MCV) 100.6 fL 80-98 H MEAN CELL HGB (test code = MCH) 29.9 picogram 27.0-33.0 N MEAN CELL HGB CONCETRATION (test code = MCHC) 29.8 gram/dL 33.0-36. 0 L RED CELL DISTRIBUTION WIDTH (test code = RDW) 16.3 % 11.6-16. 2 H PLATELET COUNT (test code = PLT) 109 K/mm3 150-450 L MEAN PLATELET VOLUME (test code = MPV) 11.7 fL 6.7-11.0 H BASIC METABOLIC [id number] 01:40:00* Test Item Value Reference Range Interpretation Comments SODIUM (test code = NA) 135 mmol/L 136-145 L POTASSIUM (test code = K) 3.0 mmol/L 3.5-5.1 L CHLORIDE (test code = CL) 98.8 mmol/L 98-107 N CARBON DIOXIDE (test code = CO2) 12.0 mmol/L 21-32 L ANION GAP (test code = GAP) 27.2 10-20 H GLUCOSE (test code = GLU) 83 mg/dL 74-106 N BLOOD UREA NITROGEN (test code = BUN) 14 mg/dL 7-18 N GLOMERULAR FILTRATION RATE (test code = GFR) > 60 mL/min >=60 Estimated GFR by using Modified MDRD formula.Chronic kidney disease is defined as either kidney damageor GFR <60 mL/min/1.73 m2 for >3 months. CREATININE (test code = CREAT) 0.60 mg/dL 0.55-1.02 N Note change in reference range due to change in reagent. BUN/CREATININE RATIO (test code = BUN/CREA) 23.3 10-20 H CALCIUM (test code = CA) 8.6 mg/dL 8.5-10.1 N HEPATIC FUNCTION [id number] 01:40:00* Test Item Value Reference Range Interpretation Comments TOTAL PROTEIN (test code = PROT) 7.8 gram/dL 6.4-8.2 N ALBUMIN (test code = ALB) 3.7 g/dL 3.4-5.0 N GLOBULIN (test code = GLOB) 4.1 gram/dL 2.7-4.2 N ALBUMIN/GLOBULIN RATIO (test code = A/G) 0.9 0.75-1.50 N BILIRUBIN TOTAL (test code = BILT) 1.50 mg/dL 0.0-1.0 H BILIRUBIN DIRECT (test code = BILD) 1.09 mg/dL 0.0-0.20 H SGOT/AST (test code = AST) 156 IUnit/L 15-37 H SGPT/ALT (test code = ALT) 70 IUnit/L 12-78 N ALKALINE PHOSPHATASE TOTAL (test code = ALKP) 113 IUnit/L 45-117 N Note change in reference range due to change in reagent. [id number] 01:40:00* Test Item Value Reference Range Interpretation Comments LIPASE (test code = LIP) 359 U/L 73.0-393.0 N PROTHROMBIN [id number] 00:56:00* Test Item Value Reference Range Interpretation Comments PROTHROMBIN TIME PATIENT (test code = PTP) 12.6 seconds 9.0-14.0 N INTERNATIONAL NORMAL RATIO (test code = INR) 1.1 0.8-1.2 N The therapeutic range for oral anticoagulant therapy formost indications is an international normalized ratio (INR)of between 2.0 and 3.0. The recommended therapeutic INRrange for various clinical situations is listed below: Clinical Situation INR range Pulmonary e mbolism treatment (2.0-3.0)Venous thrombosis treatmentVenous thrombosis prophylaxis (high risk surgery)Prevention of systemic embolism from: Acute myocardial infarction Valvular heart disease Atrial fibrillation Mechanical prosthetic heart valves (2.5-3.5) IS PATIENT ON ANTICOAGULANTS? NTHROMBOPLASTIN TIME [id number] 00:56:00* Test Item Value Reference Range Interpretation Comments THROMBOPLASTIN TIME PARTIAL (test code = PTT) 27.8 seconds 25.0-36. 5 N IS PATIENT ON ANTICOAGULANTS? N- XR CHEST 1 [id number] 00:46:00 FAX: Bon Lobo MD [phone] [place]: St: [facility] FAX: Cori Begum MD [phone] Name: ALICIA KING MITCHELL [facility] : 1950 Age/S: 68/F [address] [facility] Unit #: [id number] Loc: [place] [address] Phys: Cori Begum MD Acct: [id number] Dis Date: Status: REG ER PHONE #: [phone] Exam Date: 03/02/2019 0038 FAX #: [phone] Reason: Abdominal Pain EXAMS: CPT CODE: [id number] XR CHEST 1 V 63702 HISTORY: Abdominal pain Location: C3 COMPAR NEVIN:02/22/2014 FINDINGS: Aortic calcifications are p resent. There is elevation of the right hemidiaphragm. Heart size a nd vascularity are within normal limits. The lungs are clear of focal con solidation. No effusion, pneumothorax, or acute osseous abnormality. IMPRESSION: 1. Elevation right hemidiaphra gm. No focal consolidation. at 0046 Reported and signed by: Mahendra Guerrero MD CC: Bon [place]; Cori Begum MD Technologist: Leela Dupree Trnscrd Date/Time/By: 03/02/2019 (0046) : By: [email or web address] Orig Print D/T : S: 03/02/2019 (0049) PAGE 1 Sig alma Report - XR SHOULDER 2 + V [id number] 00:40:00 FAX: Bon Lobo MD [phone] [place]: St: REG FAX: Cori Begum MD [phone] Name: ALICIA KING [facility] : 1950 Age/S: 68/F [address] [facility] Unit #: [id number] Loc: [place] [address] Phys: Cori Begum MD Acct: [id number] Dis Date: Status: REG ER PHONE #: [phone] Exam Date: 03/02/2019 0037 FAX #: [phone] Reason: PAIN, DISLOCATION EXAMS: CPT CODE: [id number] XR SHOULDER 2 + V RT 82020 EXAM: - XR SHOULDER 2 + V RT HISTORY: Shoulder pain, fall. COMPARISON: None available time of interpretation. FINDINGS: An AP view of the right shoulder is provided. There is anterior dislocation at the glenohumeral joint. There is no acute f racture. IMPRESSION: Anterior dislocation. at 0040 Reported and signed by: Ezio Clement MD CC: Bon [place]; Cori Begum MD Technologist: Leela Herr Trnscrd Date/Time/By: 03/02/2019 ( 0040) : By: [email or web address] Orig Print D/T: S: 03/02/2019 (004) PAGE 1 Signed Report MR Shoulder wo contrast [id number] 16:24:00EXAMINATION: MR right shoulder without contrastHISTORY: M25.511 Pain in right shoulder - M25.511 Pain in right shoulder; AGE: 67 yearsGENDER: FemaleCOMPARISON: Right shoulder radiographs 01/15/2018TECHNIQUE: Multiplanar, multisequence magnetic resonance imaging of the [facility] is performed with a local coil. Transverse, oblique coronal, andoblique sagittal images are obtained.FINDINGS:Biceps: The long head of the biceps tendon demonstrates severe intra-articulartendinosis. There is no significant tenosynovitis of the long head of thebiceps tendon.Labrum: The glenoid labrum appears intact on this non-arthrographicexamination.Rotator cuff tendons: There is severe thinning and tendinosis of thesupraspinatus tendon with high-grade undersurface tearing of the entirety ofthe footplate. Moderate tendinosis of the anterior infraspinatus tendon withouttear. The subscapularis and teres minor tendons are intact and unremarkable.Muscles: There is normal signal intensity and muscle bulk of the rotator cuffmusculature.Acromio-osseous outlet: There is a type 1 acromion without a subacromial spur. The coraco acromial and coracoclavicular ligaments are intact. Mildosteoarthrosis of the a cromial clavicular joint.Bone: There are no acute fractures. There are no suspi cious bone marrowreplacing lesions.Cartilage: There is no focal glenohumeral cho ndral defect.Soft tissue: There is a moderate volume of fluidin the subacromial- subdeltoidbursa. A physiologic amount of fluid is present in the glenohumeral schuyler int. Theglenohumeral capsule is intact. The inferior glenohumeral ligament isunr emarkable..The axilla and visualized portions of the hemithorax areunremarkable. IMPRESSION:1. Severe thinning and tendinosis of the supraspinatus tendon with a high-gradeundersurface tear of the entirety of the residual footplate of thesupr aspinatus.2. Moderate tendinosis of the anterior infraspinatus tendon without te ar.3. Severe intra-articular tendinosis of the long head of the biceps tendon.4. Moderate subacromial/subdeltoid bursitis.--Read by: Eitan Phillipi ctated Date/time: 02/01/18 17:18Electronically Signed by: Eitan Phillip MD 02/01/1817:26FINAL REPORTUnBlue [facility]
--- OUTSIDE RECORDS SUMMARY | 2020-07-05 21:46 | XMS REPORT | Summary of Care ---
Author ALICIA Aviles M.D. Organization Unknown Address [facility] Phone Unavailable Care Team Providers Care Trouble Tracer Name Role Phone DAVID Priest, RUBINA Unavailable Unavailable RENETTA CUNHA AL, BON PEACE Unavailable Unavailable RNEETTA CUNHA, BON PEOPLES Unavailable Unavailable DAVID CUNHA UT, RUBINA JORGE Unavailable Unavailable RENETTA Priest, BON Unavailable Unavailable Ronda Owens MD Unavailable Unavailable Unavailable Unavailable Functional [...] 09) Status: Resolved Procedures Procedure Dates Details Post Op Promis 29 Survey Date: 21-Jun-2019 History of Hysterectomy Completed History of Tonsillectomy With Adenoidectomy Completed History of Bladder Procedures Completed History of Gastric Surgery For Morbid Obesity Gastric Bypass Completed History of Shoulder Surgery Completed History of Appendectomy Completed History of Elbow Surgery Completed History of Complete Colonoscopy Complete d Immunization Name Dates Details Fluzone INJ Lot #: [id number] on: 03-Dec-2014 Prevnar 13 Intramuscular Suspension Lot #: [id number] on: 23-Jun-2016 Family History Name Dates Details Family history of Stroke Syndrome (V17.1 ) Status: Active Name Dates Details Family history of Coronary Artery Diseas e (V17.49) Status: Active Social History Name Dates Details - Status: Name Dates Details Never smoker Vital Signs Date Test Result Details No Known Vitals to report Results Date Description Value Details Results not documented Plan of Care Name Dates Details Planned Observations Planned Goals not documented Planned Encounters Appointment; RUBINA HERNANDEZ M.D. On: 25-Jul-2019 13:15 Interventions Provided Plan* Patient Education/Instructions: * Patient Education Provided * Reassurance * Patient/Parent to call or return with any abnormal changes * NSAIDS and ICE application for continued pain and swelling. * Orders: * Physical Therapy * Medications: * - Mobic 15mg. Take 1 daily as needed for pain. Mobic (meloxicam) is an anti-inflammatory, pain medication. Take with food and only as prescribed by a physician. * - Voltaren Gel (diclofenac topical gel) is a topical, nonsteroidal anti-inflammatory medication. Apply Voltaren gel four times daily to the affected area as needed for pain. Use the dosing card for application. DO NOT exceed 32g per day. Do not take oral NSAIDs while using this medication. * Follow Up: * Return to the clinic in 2 months or as needed. * X-rays to be completed at next visit: No follow up Xrays required Instructions Name Dates Details Instructions not documented Encounters Appointment; [facility] Encounter Diagnosis: Problem not documented On: 12-Jul-2017 16:00 Appointment; RONDA OWENS M.D. Encounter Diagnosis: Problem not documented On: 18-Jul-2017 15:00 Appointment; RONDA OWENS M.D. Encounter Diagnosis: Problem not documented On: 24-Aug-2017 14:30 Appointment; BON JACKSON M.D. Encounter Diagnosis: Problem not documented On: 15-Jan-2018 11:45 Appointment; RUBINA HERNANDEZ M.D. Encounter Diagnosis: Problem not documented On: 27-Feb-2018 13:30 Appointment; RUBINA HERNANDEZ M.D. Encounter Diagnosis: Problem not documented On: 12-Mar-2018 8:00 Appointment; RUBINA HERNANDEZ M.D. Encounter Diagnosis: [...]
[2020-07-05 22:48] VITALS: BP 133/98
== END 2020-07-05 22:55 | disposition home or self-care (01) ==
LOC: ER 20:37
DX: R60.9 Edema, unspecified (principal); R94.31 Abnormal electrocardiogram [ECG] [EKG]; Z98.84 Bariatric surgery status
CPT/HCPCS: 36415; 71046; 80053; 82550; 82553; 83880; 84484; 85025; 93005; 99284

== ENCOUNTER 2020-07-09 18:38 | Emergency (ER) | payer MEDICARE, OTHER ==
--- NOTE | 2020-07-09 19:13 | Emergency Department Note ---
History of Present Illnes History of Present Illness Chief Complaint: Back Pain History of Present Illness This is a 69 year old female Chief Complaint Comment Patient in from home via EMS after a mechanical slip and fall at home. Patient reports that she tripped on her shoes and fell straight on to her butt. Patient denies hitting her head or LOC. Patient reports lower back pain 05/06. . 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 Any updates have been documented here. Past Medical History Recent Fever: No Clinical Suspicion of Infectio: No New/Unexplained Change in Ment: No Past Medical History: None Other Surgery: breast augmentation gastric bypass pelvic reconstruction tonsillectomy appendectomy Sofie Bates Social History Smoking Cessation: Never Smoker Counseling Performed: No Alcohol Use: Social Any Illegal Drug Use: No Physically hurt or threatened: No Other Any Pre-Existing Lines (PICC,: No Review of Systems Review of Systems Constitutional: Reports no symptoms EENTM: Reports no symptoms Cardiovascular: Reports no symptoms Respiratory: Reports no symptoms Gastrointestinal: Reports no symptoms Genitourinary: Reports no symptoms Musculoskeletal: Reports no symptoms Integumentary: Reports no symptoms Neurological: Reports no symptoms Psychological: Reports no symptoms Endocrine: Reports no symptoms Hematological/Lymphatic: Reports no symptoms Physical Exam Related Data Allergies: Coded Allergies: No Known Allergies (Unverified , 07/05/20) Triage Vital Signs Vital Signs Date Time Temp Pulse Resp B/P (MAP) Pulse Ox O2 Delivery O2 Flow Rate FiO2 07/09/20 18:50 97.7 95 17 145/64 99 Room Air Vital signs reviewed: Yes Physical Exam CONSTITUTIONAL Constitutional: Present well-developed, Present well-nourished HENT HENT: Present normocephalic, Present atraumatic, Present oropharynx clear/moist, Present nose normal HENT L/R: Present left ext ear normal, Present right ext ear normal EYES Eyes: Reports PERRL, Reports conjunctivae normal NECK Neck: Present ROM normal PULMONARY Pulmonary: Present effort normal, Present breath sounds normal CARDIOVASCULAR Cardiovascular: Present regular rhythm, Present heart sounds normal, Present c apillary refill normal, Present normal rate GASTROINTESTINAL Abdominal: Present soft, Present nontender, Present bowel sounds normal GENITOURINARY Genitourinary: Present exam deferred SKIN Skin: Present warm, Present dry MUSCULOSKELETAL Musculoskeletal: Present ROM normal, Present tenderness (L spine); Absent deformity, Absent swelling NEUROLOGICAL Neurological: Present alert, Present oriented x 3, Present no gross motor or sensory deficits PSYCHOLOGICAL Psychological: Present mood/affect normal, Present judgement normal Results Imaging Imaging results reviewed: Yes Assessment & Plan Medical Decision Making MDM 69-year-old female who presents after mechanical fall. She states that she fell onto her bottom and now has some L-spine tenderness. Exam shows mild L-spine tenderness. CT head, C-spine, L-spine, chest x-ray, pelvis x-ray are all unremarkable except CT L-spine shows age indeterminate compression fracture of the L-spine. I discussed this patient instructed that she will need to follow up with her primary care provider concerning this. At this time no intervention will be required and patient is appropriate for discharge.. She is given a Tylenol for pain. Doubt emergent process at this time. I discussed results patient as well as expected disease time course and management. They will follow up with their primary care provider or return to the emergency department for new or worsening symptoms. Patient's appropriate for discharge. Patient was road tested prior to DC. Reassessment Reassessment time: 19:12 Reassessment Well appearing, NAD Assessment & Plan Final Impression: (1) Back pain (2) Compression fracture of L1 lumbar vertebra Depart Disposition: HOME, SELF-CARE Last Vital Signs Date Time Temp Pulse Resp B/P (MAP) Pulse Ox O2 Delivery O2 Flow Rate FiO2 07/09/20 19:07 98.3 88 19 126/50 100 Room Air AURELIA EDWARDS MD Jul 09, 2020 19:13
[2020-07-09] MEDS ORDERED: ACETAMINOPHEN 325 MG TAB PO ONE (19:15)
--- NOTE | 2020-07-09 20:30 | Diagnostic Imaging Report ---
X-ray site and # of views HISTORY: Pain. COMPARISON: None available. FINDINGS: Bones: No acute displaced fracture. Osseous alignment is within normal limits. Joints: The joint spaces are well-maintained. There are mild to moderate degenerative changes of the bilateral hips. 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 Soft tissues: The soft tissues appear unremarkable. IMPRESSION: 1. No fracture or dislocation. 2. Degenerative changes of the bilateral hips, lower lumbar spine and sacroiliac joints. Signed by: Nick Roy MD on 07/09/2020 8:27 PM
--- OUTSIDE RECORDS SUMMARY | 2020-07-09 20:32 | XMS REPORT | Continuity of Care Document ---
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 Name Role Phone [facility] Information [employer] Unavailable Un available Problems Problem Status Onset Date Classification Date Reported Comments Source UNK Active 0 02/27/2018 [facility] ROTATOR CUFF, RT SHOULDER Acti ve 02/27/2018 [facility] RT SHOULDER Active 02/25/2018 WILLIAM Henao Pain in right shoulder 02/08/2018 05/11/2018 FABY Henao,[facility] R79.9 - ABNORMAL FINDING OF BLOOD CHEM Active 05/05/2017 [facility] DDC-6 MONTH F/U VISIT Active 08/19/2014 [facility] CIRRHOSIS OF LIVER WITHOUT MENTION OF AL Active 05/20/2014 [facility] 3 MONTH F/U Active 03/25/2014 [facility] ENLARGED LIVER, ELEVATED BILIRUBIN Active 02/17/2014 [facility] Gastric bypass status for obesity(Confirmed) Resolved 11/27/2003 Problem 02/21/2014 [facility] Gastric band attached (finding) Resolved 11/27/2003 Problem 07/28/2019 [facility], FABY Henao,[facility], [facility] [place] Primary osteoarthritis, right shoulder 05/11/2018 FABY Lina Unspecified rotator cuff tear or rupture of right shoulder, not specified as traumatic 05/11/2018 FABY Henao Bursitis of right shoulder 05/11/2018 FABY Henao Edema Active 03/25/2014 [facility] Abnormal Blood Chemistry Active 03/25/2014 [facility] Alcohol Abuse Active 03/25/2014 [facility] Hypokalemia Active 03/25/2014 [facility] Medications Medication Details Route Status Patient Instructions Ordering Provider Order Date Source Tramadol 50 mg, Route: PO, Filippo g form: TAB, Q6H, Dosing Weight 72.727, kg, PRN Pain Score 1-3, Start date: 03/12/18 19:36:00 CDT, Duration: 30 day, Stop date: 04/11/18 19:35:00 CDT Inactive 03/13/2018 [facility] Acetaminophen 325 MG / Hydrocodone Niki trate 10 MG Oral Tablet 1 tab, Route: PO, Dosing Weight 72.727, kg, Q4H, PRN Pain Score 4-6, Start date: 03/12/18 19:36:00 CDT, Duration: 30 day, Stop date: 04/11/18 19:35:00 CDT Inactive 03/13/2018 [facility] ropivacaine 0.2% 8 ml/hr, Rout e: NERVE BLOCK, Dosing Weight 72.727, kg, Continuous, Start date: 03/12/18 18:30:00 CDT, Duration: 30 day, Stop date: 04/11/18 18:29:00 CDT Inactive 03/12/2018 [facility] neostigmine (ANES) Route: IV, Drug form: INJ, ONCE, Stop date: 03/12/18 18:18:00 CDT Inactive 03/12/2018 [facility] glycopyrrolate (ANES) Route: I V, Drug form: INJ, ONCE, Stop date: 03/12/18 18:18:00 CDT Inactive 03/12/2018 [facility] dexamethasone (ANES) Route: IV , Drug form: INJ, ONCE, Stop date: 03/12/18 18:18:00 CDT Inactive 03/12/2018 [facility] ondansetron (ANES) Route: IV, Drug form: INJ, ONCE, Stop date: 03/12/18 18:18:00 CDT Inactive 03/12/2018 [facility] ceFAZolin (ANES) Route: IV, Dr ug form: INJ, ONCE, Stop date: 03/12/18 17:33:00 CDT Inactive 03/12/2018 [facility] lidocaine (ANES) Route: IV, Dr ug form: INJ, ONCE, Stop date: 03/12/18 17:33:00 CDT Inactive 03/12/2018 [facility] propofol (ANES) Route: IV, Filippo g form: INJ, ONCE, Stop date: 03/12/18 17:33:00 CDT Inactive 03/12/2018 [facility] rocuronium (ANES) Route: IV, D rug form: INJ, ONCE, Stop date: 03/12/18 17:33:00 CDT Inactive 03/12/2018 [facility] midazolam (ANES) Route: IV, Dr ug form: SOLN, ONCE, Stop date: 03/12/18 17:28:00 CDT Inactive 03/12/2018 [facility] fentaNYL (ANES) Route: IV, Filippo g form: INJ, ONCE, Stop date: 03/12/18 17:28:00 CDT Inactive 03/12/2018 [facility] metoclopramide (ANES) Route: I V, Drug form: INJ, ONCE, Stop date: 03/12/18 17:28:00 CDT Inactive 03/12/2018 [facility] Lactated Ringers Injection IV (ANES) 1000 mL Route: IV, Total Volume: 1,000, Start date: 03/12/18 16:15:00 CDT, Stop date: 03/12/18 17:15:00 CDT Inactive 03/12/2018 [facility] Calcium Chloride 0.0014 MEQ/ML / Potassi um Chloride 0.004 MEQ/ML / Sodium Chloride 0.103 MEQ/ML / Sodium Lactate 0.028 MEQ/ML Injectable Solution 1,000 mL, Rate: 25 ml/hr, Infuse over: 4 0 hr, Route: IV, Dosing Weight 72.727 kg, Total Volume: 1,000, Start date: 03/12/18 10:23:00 CDT, Duration: 30 day, Stop date: 04/11/18 10:22:00 CDT, 1.76, m2 Inactive 03/12/2018 [facility] vancomycin + Dextrose 5% in Water IV 250 mL 2001 mg: infuse over 2.5 hours For adult patients only: Round to nearest 250 mg per Medical Staff approval MEDICATION WASTE Product Size: 1000 mg Product Wasted: ___ mg Inactive 03/12/2018 [facility] ceFAZolin + sterile water 20 mL Notes: (Same As: AncefRyanzol) MEDICATION WASTE Product Size: 1000 mg Product Wasted: ___ mg Inactive 03/12/2018 [facility] multivitamin 1 tab, PO, Daily, 0 Refill(s) Active 03/05/2018 [facility] Albuterol 0.833 MG/ML / Ipratropium Brom kat 0.167 MG/ML Inhalant Solution Notes: (Same as: Lan) Inactive 08/04/2017 [facility] Sodium Chloride 0.9% IV 500 mL 500 mL, Rate: 25 ml/hr, Infuse over: 20 hr, Route: IV, Dosing Weight 62.273 kg, Total Volume: 500, Start date: 08/04/17 10:24:00 CDT, Duration: 30 day, Stop date: 09/03/17 10:23:00 CDT Inactive 08/04/2017 [facility] Calcium Carbonate 1500 MG / Cholecalcife rol 800 UNT Oral Tablet [Caltrate Plus D 600/800] 1 tab, PO, Daily, 0 Refill(s) Active 08/04/2017 [facility] Furosemide 20 MG Oral Tablet S ee Instructions, 1 tab PO Daily, 0 Refill(s) Active 08/04/2017 [facility] potassium chloride 10 mEq oral tablet, extended releas e See Instructions, 1 tab PO BID, 0 Refill(s) Active 08/04/2017 [facility] levothyroxine 50 mcg (0.05 mg) oral tablet 50 microgram = 1 tab, PO, Daily, # 30 tab, 0 Refill(s) Active 08/04/2017 [facility] Vitamin B12 PO, 0 Refill(s) Active 05/20/2014 [facility] nt Mag-Ox 400 oral tablet = 400 m g, PO, BID, # 10 tab, 0 Refill(s), Pharmacy: [id number] Active 02/21/2014 [facility] nter Vitamin D 0 Refill(s) Active 02/19/2014 [facility] nt Chlordiazepoxide Hydrochloride 5 MG / Cl idinium bromide 2.5 MG Oral Capsule [Librax] 1 cap, PO, Bedtime, # 30 cap, 0 Refill(s ) Active 02/19/2014 [facility] Vitamin B6 250 MG Oral Tablet ; Start Date: 02/12/2014; End Date: (Active) Active 02/12/2014 [facility] Calcium + D TABS (Active) Active [facility] B-12 CAPS (Active) Active [facility] TraMADol HCl 50 MG Oral Tablet (Active) Active [facility] Allergies, Adverse Reactions, Alerts Substance Category Reaction Severity Reaction type Status Date Reported Comments Source Darvon Assertion Drug allergy Active [facility] Demerol HCl Assertion Drug allergy Active 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 TECHNIQUE: AP views in internal and external rotation, and an axillary view of the shoulder FINDINGS: No acute fracture or malalignment is identified. No soft tissue abnormality is identified. IMPRESSION: No acute osseous or soft tissue abnormality of the right shoulder. 01/15/2018 [facility] Gallbladder scan HIDA w [facility] NUCLEAR MEDICINE HIDA SCAN July 10, [...] 35%) IMPRESSION: Normal gallbladder ejection fraction. 07/10/2017 [facility] Chest w/wo contrast CT EXAM: CT CHEST [...] the right hemid iaphragm with eventration. 05/10/2017 [facility] Abdomen w/wo IV contrast CT EX AM: [...] acute cholecystitis. Clinical correlation is recommended. 05/10/2017 [facility] Spine lumbar series DX EXAM: X R [...] greatest along inner curvature of scoliosis. 05/05/2017 [facility] Chest 2 views DX EXAM: XR CHES [...] atherosclerotic plaquing in the thoracic aorta. 05/05/2017 [facility] Liver w Liver vessels Doppler US LIVER [...] Date Comments Source Respitory Rate 20 03/13/2018 [facility] Systolic (mm Hg) 126 03/13/2018 [facility] Diastolic (mm Hg) 66 03/13/2018 [facility] Respitory Rate 26 03/12/2018 [facility] Systolic (mm Hg) 150 03/12/2018 [facility] Diastolic (mm Hg) 67 03/12/2018 [facility] Systolic (mm Hg) 150 03/12/2018 [facility] Diastolic (mm Hg) 67 03/12/2018 [facility] Respitory Rate 25 03/12/2018 [facility] BMI Calculated 33.51 03/05/2018 [facility] Weight 72.727 03/05/2018 [facility] Height 147.32 cm 03/05/2018 [facility] Temperature Oral (F) 98.9 F 03/05/2018 [facility] Heart Rate 86 03/05/2018 [facility] Respitory Rate 13 08/04/2017 [facility] Systolic (mm Hg) 158 08/04/2017 [facility] Diastolic (mm Hg) 71 08/04/2017 [facility] Respitory Rate 15 08/04/2017 [facility] Systolic (mm Hg) 149 08/04/2017 [facility] Diastolic (mm Hg) 75 08/04/2017 [facility] Respitory Rate 16 08/04/2017 [facility] Systolic (mm Hg) 132 08/04/2017 [facility] Diastolic (mm Hg) 75 08/04/2017 [facility] BMI Calculated 27.73 08/03/2017 [facility] Weight 62.273 08/03/2017 [facility] Height 149.86 cm 08/03/2017 [facility] Respitory Rate 16 08/19/2014 [facility] Systolic (mm Hg) 168 08/19/2014 [facility] Diastolic (mm Hg) 88 08/19/2014 [facility] Heart Rate 73 08/19/2014 [facility] Weight 63.3 08/19/2014 [facility] BMI Calculated 28.51 08/19/2014 [facility] Height 149 cm 08/19/2014 [facility] Heart Rate 66 05/20/2014 [facility] Respitory Rate 14 05/20/2014 [facility] Systolic (mm Hg) 125 05/20/2014 [facility] Diastolic (mm Hg) 79 05/20/2014 [facility] Height 147 cm 05/20/2014 [facility] BMI Calculated 26.05 05/20/2014 [facility] Weight 56.3 05/20/2014 [facility] Respitory Rate 16 02/19/2014 [facility] Systolic (mm Hg) 91 02/19/2014 [facility] Diastolic (mm Hg) 65 02/19/2014 [facility] Height 147 cm 02/19/2014 [facility] Heart Rate 99 02/19/2014 [facility] Weight 61.4 02/19/2014 [facility] BMI Calculated 28.41 02/19/2014 [facility] Encounters Location Location Details Encounter Type Encounter Number Reason For Visit Attending Provider ADM Date DC Date Status Source AUDIT [id number] 02/13/2014 02/13/2014 [facility] Outpatient [id number] _[id number] Non P hysician 02/19/2014 02/20/2014 [facility] AUDIT [id number] 03/01/2014 03/01/2014 [facility] AUDIT [id number] 03/04/2014 03/04/2014 [facility] CALE, Provi berna: KJ SANFORD, Status: Pen, Time: 10:00 AM [id number] 03/11/20 14 03/04/2014 [facility] JASMIN, Provi berna: BON WESTON, Status: Pen, Time: 9:45 AM [id number] 03/24/20 14 03/04/2014 [facility] AUDIT [id number] 03/25/2014 03/25/2014 [id number] [facility]2014 05/21/2014 [facility] [id number] [facility]2014 08/20/2014 [facility] - [place] [id number] 00 Elen Bailey 08/26/2014 08/27/[address] [facility] Outpatient Imaging - [place] Outpt Diag Services [id number] 01 Bon Weston 05/05/2017 05/06/2017 [facility] Outpatient Imaging - [place] Outpt Diag Services [id number] 02 Bon Weston 05/10/2017 05/11/2017 [facility] Outpatient Imaging - [place] Outpt Diag Services [id number] 00 Bon Weston 06/27/2017 06/28/2017 [facility] Outpatient Imaging [facility] Outpt Diag Services [id number] 03 Bon Weston 07/10/2017 07/11/2017 [facility] Bedded Outpatient [id number] Elías Owens 08/04/2017 08/04/2017 [facility] Outpatient Imaging - [place] Outpt Diag Services [id number] 04 Bon Weston 01/15/2018 01/16/2018 [facility] - [place] [facility] [id number] 05 Bon West[facility] 02/01[facility]2018 [facility] [id number] Jeffrey Chaudhary 03/12/2018 03/13/2018 [facility] Outpatient Imaging - [place] [facility] [id number] 06 Bon Weston 03/27/2019 03/28/2019 [facility] OP Therapy Patients [id number] Jeffrey Chaudhary 06/27/2019 07/27/2019 [facility] Procedures Procedure Code Date Perfomer Comments Source Abdominal hysterectomy [id number] 05 [facility], [facility] [place],[facility] Abdominoplasty [id number] [facility], [facility] [place] [place] Bilateral breast implants [id number] [facility], [facility] [place],[facility] [place] Buttock lift [id number] [facility], [facility] [place],[facility] [place] Elbow joint operations [id number] 05 [facility], [facility] [place], [facility] [place] Gastric bypass operation [id number] [facility], [facility] [place] Knee joint operation [id number] [facility], [facility] [place],[facility], [facility] [place] Shoulder joint operations<sup>1</sup> [id number] bilateral [facility], [facility] [place], [place], [facility] [place] Suspension of bladder [id number] [facility], [facility] [place],[facility], [facility] [place] Assessment and Plan No Data Provided for This Section Plan of Care Plan of Care Date Source CT Abd Liver Protocol w/wo IV contrast 7 417-02/12/2014 Routine 03/25/[address] [facility] [address] Abd Liver Protocol w/wo IV contrast 7 4170-02/12/2014 Routine[QLH] MAGNESIUM 03/04/2014 Routine[QL] CMP W/EGFR 03/04/2014 Routine 03/04/[address] [facility] [address] Abd Liver Protocol w/wo IV contrast 7 417-02/12/2014 Routine 03/01/[address] [facility] [address] Abd Liver Protocol w/wo IV contrast 7 417-02/12/2014 Routine 02/13/2014 [facility] Social History Social History Date Source Social History TypeResponse Alcohol Past, Type Wine, Liquor. Last use: 3 weeks ago. Previous treatment: None. Alcohol use interferes with work or home: No. Smoking Status Never smoker; Exposure to Tobacco Smoke None; Cigarette Smoking Last 365 Days No; Reg Smoking Cessation Counseling No entered on: 03/12/18 03/12/2018 [facility] [place] Social History TypeResponse Alcohol Past, Type Wine, [...] Cessation Counseling No entered on: 03/12/18 03/12/2018 [facility] Social History TypeResponse Alcohol Past, Type Wine, Liquor. Last use: 3 weeks ago. Previous treatment: None. Alcohol use interferes with work or home: No. Smoking Status Never smoker; Exposure to Tobacco Smoke None; Cigarette Smoking Last 365 Days No; Reg Smoking Cessation Counseling No entered on: 03/12/18 03/12/2018 [facility] Kateryna Never A Smoker (Active) Nida jama History - Currently (Active) Occupation: Comments: retired (Active) 03/25/2014 [facility] Social History TypeResponse Alcohol Past, Type Wine, Liquor. Last use: 3 weeks ago. Previous treatment: None. Alcohol use interferes with work or home: No. Smoking Status Never smoker; Exposure to Tobacco Smoke None; Cigarette Smoking Last 365 Days No; Reg Smoking Cessation Counseling No 02/19/2014 [facility] Social History TypeResponse Alcohol Past, Type Wine, Liquor. Last use: 3 weeks ago. Previous treatment: None. Alcohol use interferes with work or home: No. Smoking Status Never smoker; Exposure to Tobacco Smoke None; Cigarette Smoking Last 365 Days No; Reg Smoking Cessation Counseling No 02/19/2014 [facility] Social History TypeResponse Alcohol Use: Past, Type: Wine, Type: Liquor, Previous treatment: None, Has alcohol use interfered with work or home life? No Smoking Status Never smoker, Exposure to Tobacco Smoke None, Cigarette Smoking Last 365 Days No, Reg Smoking Cessation Counseling No 02/19/2014 [facility] Family History Value Date S ource Maternal history of Stroke Syndrome (V17 .1); (Active) Paternal history of Coronary Artery Disease (V17.49); (Active) 03/25/2014 [facility] Maternal history of Stroke Syndrome (V17 .1); (Active) Paternal history of Coronary Artery Disease (V17.49); (Active) 03/04/2014 [facility] Maternal history of Stroke Syndrome (V17 .1); (Active) Paternal history of Coronary Artery Disease (V17.49); (Active) 03/01/2014 [facility] Maternal history of Stroke Syndrome (V17 .1); (Active) Paternal history of Coronary Artery Disease (V17.49); (Active) 02/13/2014 [facility] Advance Directives Order Name Results Value Date Source Advance Directives Advance Dir ectives No Advance Directives available. 03/25/2014 [facility] Advance Directives Advance Dir ectives No Advance Directives available. 03/04/2014 [facility] Advance Directives Advance Dir ectives No Advance Directives available. 03/01/2014 [facility] Advance Directives Advance Dir ectives No Advance Directives available. 02/13/2014 [facility] Functional Status No Data Provided for This Section
--- OUTSIDE RECORDS SUMMARY | 2020-07-09 20:33 | XMS REPORT | Continuity of Care Document ---
Author Author [facility] t Organization [facility] Address 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 Attphys Unavailable Nata Weston Attphys BON WESTON M.D. Attphys Unavailable ELÍAS CANNON M.D. Attphys Unavailable Oskar Cannon Attphys [facility], ECHO Attphys Unavailable Angie Weston Attphys BENJAMIN CAMPOS NP Attphys Unavailable Bao Baron M.D. Attphys Unavailable Bianca Bailey Attphys Sammy Alexandra Attphys Payers Payer Name Policy Type Policy Number Effective Date Expiration Date Radha Horner [facility] [id number] 2019 00:00:00 [facility] Problems Condition Name Condition Details Condition Category Status Onset Date Resolution Date Last Treatment Date Treating Clinician Comments Source SUSI COSTAK Active 02/27/2018 JUAN Chávez [facility] Diagnosis Active 2018-02-27 00:00:00 2018-03-05 12:25:00 Miladys Bhatia ROTATOR CUFF, RT SHOULDER ROTA TOR CUFF, RT SHOULDER Active 02/27/2018 Miladys Bhatia Diagnosis Active 2018-02-27 00:00: 00 2018-03-12 09:55:00 Miladys Bhatia RT SHOULDER RT S HOULDER Active 02/25/2018 [facility] [place] Diagnosis Active 2018-02-25 08:00:00 2019-06-27 11:12:00 Miladys Bhatia R79.9 - ABNORMAL FINDING OF BLOOD CHEM R79.9 - ABNORMAL FINDING OF BLOOD CHEM Active 05/05/2017 Miladys Bhatia Diagnosis Active 2017-05-05 00:01:00 2017-05-05 09:41:00 M meg Bhatia DDC-6 MONTH F/U VISIT DDC- 6 MONTH F/U VISIT Active 08/19/2014 [facility] Diagnosis Active 2014-08-19 00:00:00 2015-03-29 15:19:00 Miladys Bhatia CIRRHOSIS OF LIVER WITHOUT MENTION OF AL CIRRHOSIS OF LIVER WITHOUT MENTION OF AL Active 05/20/2014 [facility] Diagnosis Active 2014-05-20 00:00:00 2014-08-21 08:43:00 Miladys hBatia 3 MONTH F/U 3 MO NTH F/U Active 03/25/2014 [facility] Diagnosis Active 2014-03-25 00:00:00 2014-05-20 10:24:00 Miladys Bhatia ENLARGED LIVER, ELEVATED BILIRUBIN ENLARGED LIVER, ELEVATED BILIRUBIN Active 02/17/2014 [facility] Diagnosis Active 2014-02-17 00:00:00 2014-02-19 08:51:00 Miladys Bhatia Dependent edema Problem Active [facility] History of edema History of edema Problem Resolved [facility] History of hiatal hernia History of hiatal hernia Problem Resolved [facility] History of pharyngitis History of pharyngitis Problem Resolved [facility] Personal history of asthma Personal history of asthma Problem Resolved [facility] Edema Edema Problem Active [facility] Need for influenza vaccination Need for influenza vaccination Problem Active [facility] De Quervain's tenosynovitis De Quervain's tenosynovitis Problem Active [facility] Conjunctivitis, acute Conjunctivitis, acute Problem Active [facility] Well woman exam with routine gynecological exam Well w lidia exam with routine gynecological exam Problem Active [facility] Menopause Menopause Problem Active [facility] Hypokalemia Hypokalemia Problem Active [facility] Need for vaccination with 13-polyvalent pneumococcal c onjugate vaccine Need for vaccination with 13-polyvalent pneumococcal conjugate vaccine Problem Ac tive [facility] Thrombocytopenia Thrombocytopenia Problem Active [facility] Macrocytosis Macrocytosis Problem Active [facility] Artificial menopause state Artificial menopause state Problem Active [facility] Abnormal mammogram of both breasts Abnormal mammogram of both br easts Problem Active [facility] Benign essential hypertension Benign essential hypertension Problem Active [facility] Hypercholesterolemia Hypercholesterolemia Problem Active [facility] Influenza vaccine refused Influenza vaccine refused Problem Active [facility] Acute bilateral low back pain without sciatica Acute b ilateral low back pain without sciatica Problem Active [facility] Elevated hemidiaphragm Elevated hemidiaphragm Problem Active [facility] Acquired hypothyroidism Acquired hypothyroidism Problem Active [facility] Cholecystitis Cholecystitis Problem Active [facility] Abnormal blood chemistry Abnormal blood chemistry Problem Active [facility] Acute UTI Acute UTI Problem Active [facility] Alcohol abuse Alcohol abuse Problem Active [facility] Weight loss, abnormal Weight loss, abnormal Problem Active [facility] Abdominal pain Abdominal pain Problem Active [facility] Anemia Anemia Problem Active [facility] Chronic right shoulder pain Chronic right shoulder pain Problem Active [facility] Complete tear of right rotator cuff Complete tear of right rotat or cuff Problem Active [facility] Swelling of both lower extremities Swelling of both lower extrem ities Problem Active [facility] Injury of right rotator cuff, initial encounter Injury of right rotator cuff, initial encounter Problem Active [facility] Primary osteoarthritis, right shoulder Primary osteoarthritis, right shoulder 05/11/2018 [facility] [place] Problem 2018-05-11 12:32:34 Miladys Bhatia Unspecified rotator cuff tear or rupture of right shoulder, not specified as traumatic Unspecified rota tor cuff tear or rupture of right shoulder, not specified as traumatic 05/11/2018 [facility] [place] Problem 2018-05-11 12:32:34 Dameon Bhatia Bursitis of right shoulder Bur sitis of right shoulder 05/11/2018 [facility] [place] Problem 2018-05-11 12:32:34 Miladys Bhatia Edema Jensen a Active 03/25/2014 [place] [facility] Problem Active 2014-03-25 22:03:21 Marialuisajeison mena Sriram Abnormal Blood Chemistry Abno rmal Blood Chemistry Active 03/25/2014 [facility] Problem Active 2014-03-25 22:03: 21 Miladys Bhatia Alcohol Abuse Alco hol Abuse Active 03/25/2014 [facility] Problem Active 2014-03-25 22:03:21 Brett weaver Sriram Hypokalemia Hypo kalemia Active 03/25/2014 [facility] Problem Active 2014-03-25 22:03:21 Miladys Bhatia Pain in right shoulder Pain in right shoulder 02/08/2018 05/11/2018 [facility] 20 11-02-15 04:30:56 2018-05-11 12:32:34 2018-05-11 12:32:34 Miladys Bhatia History of Past Illness Condition Name Condition Details Condition Category Status Onset Date Resolution Date Last Treatment Date Treating Clinician Comments Source Gastric band attached (finding) Gastric band attached (finding) Resolved 11/27/2003 Problem 07/28/2019 [facility], FABY Avendaño,[facility] Problem Resolved 2003-11-27 00:00:00 2019-07-28 23:20:3 1 2019-07-28 23:20:31 [facility] Gastric bypass status for obesity(Confirmed) Gastric bypass status for obesity(Confirmed) Resolved 11/27/2003 Problem 02/21/2014 [facility] Problem Resolved 2003-11-27 00:00:00 2 22:32:57 2014-02-21 22:32:57 [facility] Allergies, Adverse Reactions, Alerts Allergy Name Allergy Type Status Severity Reaction(s) Onset Date Inacti ve Date Treating Clinician Comments Source propoxyphene DA Active [place] 2015-08-07 00:00:00 [facility] acetaminophen DA Active [place] 2015-08-07 00:00:00 [facility] meperidine DA Active [place] 2015-08-07 00:00:00 [facility] Demerol TABS Allergy to drug (finding) Active [facility] Dionna 100 TABS Allergy to drug (finding) Active [facility] Dudley Browne CAPS Allergy to drug (finding) Active [facility] Pavan Browne Active [facility] ermann Demerol HCl Demerol HCl Active [facility] Sriram Millann CAPS Darvon CAPS Active [facility] Sriram Darvocet-N 100 TABS Darvocet-N 100 TABS Active [facility] Demerol TABS Demerol TABS Active [facility] No Known Drug Allergies No Known Drug Allergies Active [facility] Family History Family Member Diagnosis Comments Start Date Stop Date Source Mother Family history of Stroke Syndrome [facility] Father Family history of Coronary Artery Disease [facility] Unknown Family Member Family History 2014-02-13 19:51:20 2 19:51:20 [facility] Social History Social Habit Start Date Stop Date Quantity Comments Source Social History 2014-02-19 14:08:35 2014-02-19 14:08:35 Miladys Bhatia Sex [birth year] At 1950 00:00:00 1950 00:00:00 Female [facility] Smoking Status Start Date Stop Date Source Never smoked tobacco (finding) [facility] Medications Ordered Medication Name Filled Medication Name Start Date Stop Da te Current Medication? Ordering Clinician Indication Dosage Frequency Signature (SIG) Comments Components Source HYDROcodone-Acetaminophen 7.5-325 MG Oral Tablet HYDRO codone-Acetaminophen 7.5- 325 MG Oral Tablet 2019-05-03 00:00:00 Yes RUBINA HERNANDEZ M.D. TAKE 1 TABLET EVERY 4 TO 6 HOURS NEEDED FOR PAIN. [facility] traMADol HCl - 50 MG Oral Tablet traMADol HCl - 50 MG Oral T ablet 2019-05-03 00:00:00 Yes RUBINA HERNANDEZ M.D. TAKE 1 TABLET EVERY 4 TO 6 HOURS NEEDED FOR PAIN. [facility] Tramadol 2018-03-13 00:36:00 No 50 mg, Route: PO, Drug form: TAB, Q6H, Dosing Weight 72.727, kg, PRN Pain Score 1-3, Start date: 03/12/18 19:36:00 CDT, Duration: 30 day, Stop date: 04/11/18 19:35:00 CDT [facility] Acetaminophen 325 MG / Hydrocodone Bitartrate 10 MG Oral Tab let 2018-03-13 00:36:00 No 1 tab, Rou te: PO, Dosing Weight 72.727, kg, Q4H, PRN Pain Score 4-6, Start date: 03/12/18 19:36:00 CDT, Duration: 30 day, Stop date: 04/11/18 19:35:00 CDT [facility] ropivacaine 0.2% 2018-03-12 23:30:00 No 8 ml/hr, Route: NERVE BLOCK, Dosing Weight 72.727, kg, Continuous, Start date: 03/12/18 18:30:00 CDT, Duration: 30 day, Stop date: 04/11/18 18:29:00 CDT [facility] neostigmine (ARIADNES) 2018-03-12 23:18:00 No Route: IV, Drug form: INJ, ONCE, Stop date: 03/12/18 18:18:00 CDT [facility] glycopyrrolate (ARIADNES) 2018-03-12 23:18:00 No Route: IV, Drug form: INJ, ONCE, Stop date: 03/12/18 18:18:00 CDT [facility] dexamethasone (ARIADNES) 2018-03-12 23:18:00 No Route: IV, Drug form: INJ, ONCE, Stop date: 03/12/18 18:18:00 CDT [facility] ondansetron ([facility]) 2018-03-12 23:18:00 No Route: IV, Drug form: INJ, ONCE, Stop date: 03/12/18 18:18:00 CDT [facility] ceFAZolin (ARIADNES) 2018-03-12 22:33:00 No Route: IV, Drug form: INJ, ONCE, Stop date: 03/12/18 17:33:00 CDT [facility] lidocaine (ARIADNES) 2018-03-12 22:33:00 No Route: IV, Drug form: INJ, ONCE, Stop date: 03/12/18 17:33:00 CDT [facility] propofol (ARIADNES) 2018-03-12 22:33:00 No Route: IV, Drug form: INJ, ONCE, Stop date: 03/12/18 17:33:00 CDT [facility] rocuronium (ANES) 2018-03-12 22:33:00 No Route: IV, Drug form: INJ, ONCE, Stop date: 03/12/18 17:33:00 [facility] midazolam (ANES) 2018-03-12 22:28:00 No Route: IV, Drug form: SOLN, ONCE, Stop date: 03/12/18 17:28:00 CDT [facility] fentaNYL (ANES) 2018-03-12 22:28:00 No Route: IV, Drug form: INJ, ONCE, Stop date: 03/12/18 17:28:00 CDT [facility] metoclopramide (ANES) 2018-03-12 22:28:00 No Route: IV, Drug form: INJ, ONCE, Stop date: 03/12/18 17:28:00 CDT Miladys Bhatia Lactated Ringers Injection IV (ANES) 1000 mL [...] date: 04/11/18 10:22:00 CDT, 1.76, m2 Miladys Sriram vancomycin + Dextrose 5% in Water IV 250 mL 2018-03-12 12:00:00 No 2001 mg: infuse over 2.5 hours For adult patients only: Round to nearest 250 mg per Medical Staff approval MEDICATION WASTE Product Size: 1000 mg Product Wasted: ___ mg Miladys Bhatia ceFAZolin + sterile water 20 mL 2018-03-12 12:00:00 No Notes: (Same As: Ancef, Kefzol) MEDICATION WASTE Product Size: 1000 mg Product Wasted: ___ mg Miladys Bhatia multivitamin 2018-03-05 18:32:00 Yes 1 tab, PO, Daily, 0 Refill(s) Miladys Bhatia Albuterol 0.833 MG/ML / Ipratropium [place] 0.167 MG/ML Inha lant Solution 2017-08-04 15:24:00 [...] ROSARIO W AND SWALLOW 1 TABLET DAILY. [facility] Vitamin B12 2014-05-20 15:48:00 Yes PO, 0 Re fill(s) Miladys Bhatia Calcium + D TABS 2014-03-25 22:03:21 Yes (A ctive) Miladys Bhatia B-12 CAPS 2014-03-04 20:21:36 Yes (Active) Miladys Bhatia TraMADol HCl 50 MG Oral Tablet 2014-03-04 20:21:36 Yes (Active) Miladys Bhatia Mag-Ox 400 oral tablet 2014-02-21 15:41:00 Yes = 400 mg, PO, BID, # 10 tab, 0 Refill(s), Pharmacy: [facility] [id number] Miladys Bhatia Vitamin D 2014-02-19 14:55:00 Yes 0 Refill(s ) Miladys Bhatia Chlordiazepoxide Hydrochloride 5 MG / Cl idinium bromide 2.5 MG Oral Capsule [Librax] 2014-02-19 14:42:00 Yes 1 cap, PO, Bedtime, # 30 cap, 0 Refill(s) Miladsy Bhatia Vitamin B6 250 MG Oral Tablet 2014-02-12 05:00:00 Yes ; Start Date: 02/12/2014; End Date: (Active) Miladys Sriram Caltrate 600+D3 Soft CHEW Caltrate 600+D3 Soft CHEW Yes M.A. 1 QD TAKE 1 TABLET DAILY [facility] Folic Acid 1 MG Oral Tablet Folic Acid 1 MG Oral Tablet Yes M.A. QD TAKE 1 TABLET DAILY DIRECTED. [facility] Magnesium 400 MG CAPS Magnesium 400 MG CAPS Yes M.A. 1 tab bid [facility] Pantoprazole Sodium 40 MG Intravenous Solution Reconst ituted Pantoprazole Sodium 40 MG Intravenous Solution Reconstituted Yes M.A. 1 tab qd [facility] Thiamine HCl - 100 MG Oral Tablet Thiamine HCl - 100 MG Oral Tablet Yes M.A. 1 QD TAKE 1 TABLET DAILY. [facility] Immunizations Ordered Immunization Name Filled Immunization Name Date Status Comments Source Prevnar 13 Intramuscular Suspension 2016-06-23 09:39:00 Co mpleted [facility] Fluzone INJ 2014-12-03 16:25:00 Completed [facility] Vital Signs Vital Name Observation Time Observation Value Comments Source BP Systolic 2019-03-15 08:42:00 131 mm[Hg] Location: LUE; Positi on: Sitting [facility] BP Diastolic 2019-03-15 08:42:00 78 mm[Hg] Location: LUE; Positi on: Sitting [facility] Heart Rate 2019-03-15 08:42:00 80 /min [facility] BP Systolic 2019-03-15 08:41:00 140 mm[Hg] Location: LUE; Positi on: Sitting [facility] BP Diastolic 2019-03-15 08:41:00 81 mm[Hg] Location: LUE; Dc on: Sitting [facility] Heart Rate 2019-03-15 08:41:00 76 /min [facility] Height 2019-03-15 08:41:00 58.5 [in_us] [facility] Weight 2019-03-15 08:41:00 165.5 [lb_av] [facility] Body Mass Index Calculated 2019-03-15 08:41:00 34 kg/m2 [facility] Temperature 2019-03-15 08:41:00 98.4 [degF] Method: Temporal [facility] Respiration Rate 2019-03-15 08:41:00 16 /min [facility] Respitory Rate 2018-03-13 00:45:00 Memori al Sriram Systolic (mm Hg) 2018-03-13 00:45:00 Berry rial Sriram Diastolic (mm Hg) 2018-03-13 00:45:00 Mem orial Sriram Respitory Rate 2018-03-12 23:46:00 Memori al Sriram Systolic (mm Hg) 2018-03-12 23:46:00 Berry rial Sriram Diastolic (mm Hg) 2018-03-12 23:46:00 Mem orial [place] Systolic (mm Hg) 2018-03-12 23:45:00 Berry rial [place] Diastolic (mm Hg) 2018-03-12 23:45:00 Mem orial [place] Respitory Rate 2018-03-12 23:45:00 Memori al Sriram BMI Calculated 2018-03-05 18:33:00 Mem[facility] [place] Weight 2018-03-05 18:33:00 [facility] Sr[facility] Height 2018-03-05 18:33:00 147.32 cm [facility] Temperature Oral (F) 2018-03-05 18:27:00 98.9 F [facility] Heart Rate 2018-03-05 18:27:00 [facility] Sr[facility] Respitory Rate 2017-08-04 16:30:00 Memori [facility] [place] Systolic (mm Hg) 2017-08-04 16:30:00 Berry rial [place] Diastolic (mm Hg) 2017-08-04 16:30:00 Mem orial Sriram Respitory Rate 2017-08-04 16:15:00 Memori al Sriram Systolic (mm Hg) 2017-08-04 16:15:00 Berry rial Sriram Diastolic (mm Hg) 2017-08-04 16:15:00 Mem orial Sriram Respitory Rate 2017-08-04 15:59:00 Mem[facility] [place] Systolic (mm Hg) 2017-08-04 15:59:00 Berry rial Sriram Diastolic (mm Hg) 2017-08-04 15:59:00 Mem orial Sriram BMI Calculated 2017-08-03 21:30:00 Memori al Sriram Weight 2017-08-03 21:30:00 [facility] Sr[facility] Height 2017-08-03 21:30:00 149.86 cm [facility] [place] Respitory Rate 2014-08-19 16:53:00 Memori [facility] [place] Systolic (mm Hg) 2014-08-19 16:53:00 Berry rial Sriram Diastolic (mm Hg) 2014-08-19 16:53:00 Mem orial [place] Heart Rate 2014-08-19 16:53:00 [facility] [place] Weight 2014-08-19 16:53:00 [facility] Sriram BMI Calculated 2014-08-19 16:53:00 Memori [facility] [place] Height 2014-08-19 16:53:00 149 cm [facility] Sriram Heart Rate 2014-05-20 15:37:00 [facility] [place] Respitory Rate 2014-05-20 15:37:00 Memori al [place] Systolic (mm Hg) 2014-05-20 15:37:00 Berry rial Sriram Diastolic (mm Hg) 2014-05-20 15:37:00 Mem orial [place] Height 2014-05-20 15:37:00 147 cm [facility] Sriram BMI Calculated 2014-05-20 15:37:00 Memori al [place] Weight 2014-05-20 15:37:00 [facility] Sriram Respitory Rate 2014-02-19 14:01:00 Memori al Sriram Systolic (mm Hg) 2014-02-19 14:01:00 Berry rial [place] Diastolic (mm Hg) 2014-02-19 14:01:00 Mem orial Sriram Height 2014-02-19 14:01:00 147 cm [facility] Sriram Heart Rate 2014-02-19 14:01:00 [facility] [place] Weight 2014-02-19 14:01:00 [facility] Sr[facility] BMI Calculated 2014-02-19 14:01:00 Sari al [place] Procedures Procedure Date / Time Performed Performing Clinician Rylan e X-ray of chest, two views 2020-07-05 00:00:00 [facility] Post Op Promis 29 Survey 2019-06-21 00:00:00 [facility] [U] XRAY SHOULDER MIN 2 VWS RIGHT [id number] 2019-04-15 00:00:00 [facility] MR Shoulder wo contrast [id number] 2019-03-15 00:00:00 [facility] History of Hysterectomy [facility] History of Tonsillectomy With Adenoidectomy [facility]adder [facility] History of Gastric Surgery For Morbid Obesity Gastric Bypass [facility] History of Shoulder Surgery [facility] History of Appendectomy [facility] History of Elbow Surgery [facility] History of Complete Colonoscopy [facility] Abdominal hysterectomy [facility] Abdominoplasty [facility] Bilateral breast implants Sari al Sriram Buttock lift [facility] Sriram Elbow joint operations [facility] Sriram Gastric bypass operation Memoria l [place] Knee joint operation [facility] rmann Shoulder joint operations<sup>1</sup> [facility] Suspension of bladder [facility] ermann Plan of Care Planned Activity Planned Date Details Comments Source Future Scheduled Test 2014-03-25 22:03:21 Plan of Care [code = 1877 6-5] [facility] Future Scheduled Test 2014-03-04 20:21:36 Plan of Care [code = 1877 6-5] [facility] Future Scheduled Test 2014-03-01 18:00:27 Plan of Care [code = 1877 6-5] [facility] Future Scheduled Test 2014-02-13 19:51:20 Plan of Care [code = 1877 6-5] [facility] Instructions Dependent Edema [facility] Encounters Start Date/Time End Date/Time Encounter Type Admission Type [facility] Care Department Encounter ID Source 2020-07-05 20:37:00 2020-07-05 22:55:00 Departed Emergency Room GOPI GARCIA [facility] [id number] [facility] 2019-06-27 08:00:00 2019-07-26 23:59:00 Outpatient Rubina Hernandez [place] [id number] 2019-07-25 13:15:00 2019-07-25 13:15:00 Appointment; RUBINA HERNANDEZ M .D. MEEKS, EVAN, M.D. [facility] [id number] [facility] 2019-06-18 14:30:00 2019-06-18 14:30:00 Appointment; RUBINA HERNANDEZ M .D. MEEKS, EVAN, M.D. [facility] Orthopedics [facility] [id number] [facility] 2019-06-13 14:45:00 2019-06-13 14:45:00 Appointment; RUBINA HERNANDEZ M .D. MEEKS, EVAN, M.D. [facility] [id number] [facility] 2019-05-16 11:00:00 2019-05-16 11:00:00 Appointment; RUBINA HERNANDEZ M .D. MEEKS, EVAN, M.D. [facility] Orthopedics [facility] [id number] [facility] 2019-05-09 11:00:00 2019-05-09 11:00:00 Appointment; RUBINA HERNANDEZ M .D. MEEKS, EVAN, M.D. [facility] [id number] [facility] 2019-04-29 08:00:00 2019-04-29 08:00:00 Appointment; RUBINA HERNANDEZ M .D. MEEKS, EVAN, M.D. [facility] [id number] [facility] 2019-04-16 13:30:00 2019-04-16 13:30:00 Appointment; RUBINA HERNANDEZ M .D. MEEKS, EVAN, M.D. [facility] [id number] [facility] 2019-03-27 12:48:00 2019-03-27 23:59:00 [facility] [id number] 2019-03-15 08:30:00 2019-03-15 08:30:00 Appointment; BON [place] M.D. MURPHY, THOMAS, M.D. [facility] [address] [id number] [facility] 2018-04-24 09:00:00 2018-04-24 09:00:00 Appointment; RUBINA HERNANDEZ M .D. MEEKS, EVAN, M.D. [facility] [place] [id number] [facility] 2018-03-27 09:00:00 2018-03-27 09:00:00 Appointment; RUBINA HERNANDEZ M .D. MEEKS, EVAN, M.D. [facility] [place] [id number] [facility] 2018-03-20 09:00:00 2018-03-20 09:00:00 Appointment; RUBINA HERNANDEZ M .D. MEEKS, EVAN, M.D. [facility] [place] [id number] [facility] 2018-03-12 09:55:00 2018-03-12 19:50:00 [facility] [id number] 2018-03-12 08:00:00 2018-03-12 08:00:00 Appointment; RUBINA HERNANDEZ M .D. MEEKS, EVAN, M.D. [facility] [place] [id number] [facility] 2018-02-27 13:30:00 2018-02-27 13:30:00 Appointment; RUBINA HERNANDEZ M .D. MEEKS, EVAN, M.D. [facility] [place] [id number] [facility] 2018-02-01 15:52:00 2018-02-01 23:59:00 Outpatient Bon Weston HOIP MHHOIP [id number] 2018-01-15 12:39:00 2018-01-15 23:59:00 Outpatient Tasia Weston MHOIB MHOIB [id number] 2018-01-15 11:45:00 2018-01-15 11:45:00 Appointment; BON WESTON M.D. MURPHY, THOMAS M.D. [facility] UTP [id number] [facility] 2017-08-24 14:30:00 2017-08-24 14:30:00 Appointment; ELÍAS CANNON M.D. CATALANO, MARC, M.D. UTP UTP [id number] [facility] 2017-08-04 09:42:00 2017-08-04 11:38:00 Outpatient Elías Cannon [facility] [id number] 2017-07-18 15:00:00 2017-07-18 15:00:00 Appointment; ELÍAS CANNON M.D. CATALANO, MARC, M.D. [facility] UTP [id number] [facility] 2017-07-12 16:00:00 2017-07-12 16:00:00 Appointment; Rich ANSARI ECHO UTP UTP [id number] [facility] 2017-07-10 12:16:00 2017-07-10 23:59:00 Outpatient Bon Weston [id number] 2017-06-27 14:19:00 2017-06-27 23:59:00 Outpatient Tasia Weston MHOIB MHOIB [id number] 2017-06-27 12:30:00 2017-06-27 12:30:00 Appointment; BENJAMIN CAMPOS N P BECK, SHERI, NP UTP UTP [id number] [facility] 2017-05-10 08:27:00 2017-05-10 23:59:00 Outpatient Tasia WestonOIB MHOIB [id number] 2017-05-05 09:29:00 2017-05-05 23:59:00 Outpatient Tasia Weston MHOIB MHOIB [id number] 2017-05-05 08:15:00 2017-05-05 08:15:00 Appointment; BON WESOTN M.D. MURPHY, THOMAS, M.D. UTP UTP [id number] [facility] 2016-08-18 10:30:00 2016-08-18 10:30:00 Appointment; BENJAMIN CAMPOS N P BECK, SHERI, NP UTP UTP [id number] [facility] 2016-07-19 09:45:00 2016-07-19 09:45:00 Appointment; Bao Baron M.D. Quesada, Jorge, M.D. UTP UTP [id number] [facility] 2016-07-14 09:30:00 2016-07-14 09:30:00 Appointment; BENJAMIN CAMPOS N P BECK, SHERI, NP UTP UTP [id number] [facility] 2016-07-08 11:45:00 2016-07-08 11:45:00 Appointment; Bao Baron M.D. Quesada, Jorge, M.D. UTP UTP [id number] [facility] 2016-06-30 08:00:00 2016-06-30 08:00:00 Appointment; BENJAMIN CAMPOS N P BECK, SHERI, NP UTP UTP [id number] [facility] 2016-06-23 08:30:00 2016-06-23 08:30:00 Appointment; BENJAMIN CAMPOS N P BECK, SHERI, NP UTP UTP [id number] [facility] 2014-08-26 07:58:00 2014-08-26 23:59:00 Outpatient Elen Murdock iIE JUANIE [id number] 2014-08-19 11:37:00 2014-08-19 23:59:00 Outpatient Brett AlexandraIE [id number] 2014-05-20 10:16:00 2014-05-20 23:59:00 Outpatient Brett AlexandraIE [id number] 2014-03-25 17:03:21 2014-03-25 17:03:21 Outpatient MHIE MHIE [id number] 2014-03-04 15:21:36 2014-03-04 15:21:36 Outpatient MHIE MHIE [id number] 2014-03-01 13:00:28 2014-03-01 13:00:27 Outpatient MHIE MHIE [id number] 2014-02-19 08:51:00 2014-02-19 23:59:00 Outpatient Brett AlexandraIE JUANIE [id number] 2014-02-13 14:51:20 2014-02-13 14:51:20 Outpatient FRANK IE [id number] Results Test Description Test Time Test Comments Results Result Comments Source PELVIS AP 1-2 VIEWS 2020-07-09 20:18:00 [facility] [address] [place] [address] Patient Name: ALICIA KING MR #: [id number] : 1950 Age/Sex: 69/F Req #: [id number] Adm Physician: Ordered by: Aurelia Yoo MD Report #: [id number] Location: ER Room/Bed: Procedure: [id number] DX/PELVIS AP 1-2 VIEWS Exam Date: 07/09/20 Exam Time: 1924 REPORT STATUS: Signed X-ray site and # of views HISTORY: Pain. COMPARISON: None available. FINDINGS: Bones: No acute displaced fracture. Osseous alignment is within normal limits. Joints: The joint spaces are well-maintained. There are mild to moderate degenerative changes of the bilateral hips. 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 Soft tissues: The soft tissues appear unremarkable. IMPRESSION: 1. No fracture or dislocation. 2. Degenerative changes of the bilateral hips, lower lumbar spine and sacroiliac joints. Signed by: Nick Gauthier MD on 07/09/2020 8:27 PM Dictated By: NICK GAUTHIER MD 26 Transcribed By: LANIE on 07/09/202026 COPY TO: AURELIA YOO MD CHEST 2 VIEWS 2020-07-05 21:30:00 [facility] [address] [address] Patient Name: ALICIA KING MR #: [id number] : 1950 Age/Sex: 69/F Req #: [id number] Adm Physician: Ordered by: GOPI GARCIA MD Report #: [id number] Location: ER Room/Bed: Procedure: [id number] DX/CHEST 2 VIEWS Exam Date: 07/05/20 Exam [...] on 07/05/202130 COPY TO: GOPI GARCIA MD Blood leukocytes automated count (number/volume) 2020-07-05 20:25:00 Test Item White Blood Count (test code = 6690-2) 6.07 4.8-10.8 [facility] (number/volume)2020-07-05 20:25:00* Test Item Value Reference Range Interpretation Comments Red Blood Count (test code = 789-8) 3.86 3.6-5.1 [facility] measurement (moles/volume)2020-07-05 20:25:00* Test Item Value Reference Range Interpretation Comments Hemoglobin (test code = 91478-8) 11.3 12.0-16.0 [facility] hematocrit (volume fraction)2020-07-05 20:25:00* Test Item Value Reference Range Interpretation Comments Hematocrit (test code = 4544-3) 35.7 34.2-44.1 [facility] erythrocyte mean corpuscular dekyjg0664-88-71 20:25:00* Test Item Value Reference Range Interpretation Comments Mean Corpuscular Volume (test code = 787-2) 92.5 81-99 [facility] eryth[facility] mean corpuscular hemoglobin (mass per erythrocyte)2020-07-05 20:25:00* Test Item Value Reference Range Interpretation Comments Mean Corpuscular Hemoglobin (test code = 785-6) 29.3 28-32 [facility] Center[facility] erythrocyte mean corpuscular hemoglobin concentration measurement (mass/volume)2020-07-05 20:25:00* Test Item Value Reference Range Interpretation Comments Mean Corpuscular Hemoglobin Concent (test code = 786-4) 31.7 31-35 [facility] CenterRDW LlaPx-Rsa5717-17-09 20:25:00* Test Item Value Reference Range Interpretation Comments Red Cell Distribution Width (test code = 05580-9) 17.6 11.7 -14.4 [facility] platelet count (count/volume)2020-07-05 20:25:00* Test Item Value Reference Range Interpretation Comments Platelet Count (test code = 777-3) 146 140-360 [facility] segmented neutrophil count as percentage of total hqkqwzhckm2743-65-81 20:25:00* Test Item Value Reference Range Interpretation Comments Neutrophils (%) (Auto) (test code = 12254-4) 44.7 38.7-80.0 [facility] Center[facility] lymphocyte count as percentage ot total gecexaesux7084-68-35 20:25:00* Test Item Value Reference Range Interpretation Comments Lymphocytes (%) (Auto) (test code = 736-9) 38.2 18.0-39.1 [facility] Center[facility] monocyte count as percentage of total uqhkejgpwx5378-20-43 20:25:00* Test Item Value Reference Range Interpretation Comments Monocytes (%) (Auto) (test code = 5905-5) 13.2 4.4-11.3 [facility] Center[facility] blood eosinophil count as percentage of total tokidhqzlm8662-20-81 20:25:00* Test Item Value Reference Range Interpretation Comments Eosinophils (%) (Auto) (test code = 713-8) 2.3 0.0-6.0 [facility] Center[facility] blood basophil count as percentage of total ioxrlnvcwo4116-52-69 20:25:00* Test Item Value Reference Range Interpretation Comments Basophils (%) (Auto) (test code = 706-2) 1.3 0.0-1.0 [facility] CenterFluoroscopic procedure less than one hour grpuzggb3235-11-11 20:25:00* Test Item Value Reference Range Interpretation Comments IM GRANULOCYTES % (test code = IM GRANULOCYTES %) 0.3 0.0- 1.0 [facility] Center[facility] blood neutrophil count 2020-07-05 20:25:00* Test Item Value Reference Range Interpretation Comments Neutrophils # (Auto) (test code = 751-8) 2.7 2.1-6.9 [facility] lymphocytes count (number/volume) 2020-07-05 20:25:00* Test Item Value Reference Range Interpretation Comments Lymphocytes # (Auto) (test code = 69279-4) 2.3 1.0-3.2 [facility] Center[facility] monocytes automated count (number/volume)2020-07-05 20:25:00* Test Item Value Reference Range Interpretation Comments Monocytes # (Auto) (test code = 742-7) 0.8 0.2-0.8 [facility] CenterAutom[facility] blood eosinophil count 2020-07-05 20:25:00* Test Item Value Reference Range Interpretation Comments Eosinophils # (Auto) (test code = 711-2) 0.1 0.0-0.4 [facility] CenterAutomated blood basophil count (count/volume)2020-07-05 20:25:00* Test Item Value Reference Range Interpretation Comments Basophils # (Auto) (test code = 704-7) 0.1 0.0-0.1 [facility] CenterFluoroscopic procedure less than one hour quccuxom0840-90-47 20:25:00* Test Item Value Reference Range Interpretation Comments Absolute Immature Granulocyte (auto (fabienne t code = Absolute Immature Granulocyte (auto) 0.02 0-0.1 [facility] sodium measurement (moles/volume)2020-07-05 20:25:00* Test Item Value Reference Range Interpretation Comments Sodium Level (test code = 2951-2) 142 136-145 [facility]er[facility] or plasma potassium measurement (moles/volume)2020-07-05 20:25:00* Test Item Value Reference Range Interpretation Comments Potassium Level (test code = 2823-3) 3.8 3.5-5.1 [facility] Hospital[facility] or plasma chloride measurement (moles/volume)2020-07-05 20:25:00* Test Item Value Reference Range Interpretation Comments Chloride Level (test code = 2075-0) 104 98-107 [facility] Hospitalerum or plasma carbon dioxide, total measurement (moles/volume)2020-07-05 20:25:00* Test Item Value Reference Range Interpretation Comments Carbon Dioxide Level (test code = 2028-9) 23 22-29 [facility] Hospitalerum or plasma anion hgj4753-31-78 20:25:00* Test Item Value Reference Range Interpretation Comments Anion Gap (test code = 63229-9) 18.8 8-16 [facility]er[facility] or plasma urea nitrogen measurement (mass/volume)2020-07-05 20:25:00* Test Item Value Reference Range Interpretation Comments Blood Urea Nitrogen (test code = 3094-0) 10 7-26 [facility] Hospitaler[facility] or plasma creatinine measurement (mass/volume)2020-07-05 20:25:00* Test Item Value Reference Range Interpretation Comments Creatinine (test code = 2160-0) 0.68 0.57-1.11 [facility] Hospitaler[facility] or plasma urea nitrogen/creatinine mass wllyr5161-18-44 20:25:00* Test Item Value Reference Range Interpretation Comments BUN/Creatinine Ratio (test code = 3097-3) 15 6-25 [facility] CenterEstimated glomerular filtration rate (GFR) qxctpanmifncx5137-01-93 20:25:00* Test Item Value Reference Range Interpretation Comments Estimat Glomerular Filtration Rate (test code = 740691999) > 60 >60 Ranges were taken from the National Kidney Disease Education Program and the [facility] [employer] literature.Reference ranges:60 or greater: Bocoss40-95 ( for 3 consecutive months): Chronic kidney disease 15 or less: Kidney failureHendrick Medical CenterGlucose kxaynzyuzpw3215-04-22 20:25:00* Test Item Value Reference Range Interpretation Comments Glucose Level (test code = LAX6301) 90 74-118 [facility] or plasma calcium measurement (mass/volume)2020-07-05 20:25:00* Test Item Value Reference Range Interpretation Comments Calcium Level (test code = 25659-7) 8.8 8.4-10.2 [facility] Hospitalerum or plasma total bilirubin measurement (mass/volume)2020-07-05 20:25:00* Test Item Value Reference Range Interpretation Comments Total Bilirubin (test code = 1975-2) 0.4 0.2-1.2 [facility] CenterFluoroscopic procedure less than one hour kwhxuhpr1310-54-72 20:25:00* Test Item Value Reference Range Interpretation Comments Aspartate Amino Transf (AST/SGOT) (test code = Aspartate Amino Transf (AST/SGOT)) 60 5-34 [facility] Hospitalerum or plasma alanine aminotransferase measurement (enzymatic activity/volume)2020-07-05 20:25:00* Test Item Value Reference Range Interpretation Comments Alanine Aminotransferase (ALT/SGPT) (test code = 1742-6) 26 0-55 [facility] Hospitalerum or plasma protein measurement (mass/volume)2020-07-05 20:25:00* Test Item Value Reference Range Interpretation Comments Total Protein (test code = 2885-2) 7.0 6.5-8.1 [facility] Hospitalerum or plasma albumin measurement (mass/volume)2020-07-05 20:25:00* Test Item Value Reference Range Interpretation Comments Albumin (test code = 1751-7) 3.2 3.5-5.0 [facility] CenterPlasma globulin measurement (mass/volume) 2020-07-05 20:25:00* Test Item Value Reference Range Interpretation Comments Globulin (test code = 64757-9) 3.8 2.3-3.5 [facility] Hospitalerum or plasma albumin/globulin mass lnuuv0123-18-76 20:25:00* Test Item Value Reference Range Interpretation Comments Albumin/Globulin Ratio (test code = 1759-0) 0.8 0.8-2.0 [facility] Hospitalerum or plasma alkaline phosphatase measurement (enzymatic activity/volume)2020-07-05 20:25:00* Test Item Value Reference Range Interpretation Comments Alkaline Phosphatase (test code = 6768-6) 94 40-150 [facility] CenterBNP Sfv-oNsb0579-37-09 20:25:00* Test Item Value Reference Range Interpretation Comments B-Type Natriuretic Peptide (test code = 34122-2) 103.1 0-100 [facility] Hospitalerum or plasma creatine kinase measurement (enzymatic activity/volume)2020-07-05 20:25:00* Test Item Value Reference Range Interpretation Comments Creatine Kinase (test code = 2157-6) 26 29-168 [facility] Hospitalerum or plasma creatine kinase MB measurement (mass/volume)2020-07-05 20:25:00* Test Item Value Reference Range Interpretation Comments Creatine Kinase MB (test code = 19450-8) 0.60 0-5.0 [facility] CenterTroponin I measurement by highly sensitive enzyme zmkbersjtyl8468-71-28 20:25:00* Test Item Value Reference Range Interpretation Comments Troponin I (test code = 83881-6) < 0.001 0-0.300 [facility] METABOLIC AFJNC5757-39-50 03:15:00 * Test Item Value Reference Range Interpretation Comments SODIUM (test code = NA) 144 mmol/L [...] CA) 8.2 mg/dL 8.5-10.1 L HEPATIC FUNCTION DJSQB3625-59-91 03:15:00* Test Item Value Reference Range Interpretation [...] reference range due to change in reagent. JJBHBT9524-65-53 03:15:00* Test Item Value Reference Range Interpretation Comments LIPASE (test code = LIP) 59 U/L 73.0-393.0 L - XR L-SPINE 2/3 STHHN2372-31-89 02:08:00 FAX: Bon Lobo MD [phone] [place]: St: REG FAX: Rubina Maier MD Name: ALICIA KING [facility] : 1950 Age/S: 69/F [address] [facility] Unit #: [id number] Loc: [place] [address] Phys: Rubina Maier MD Acct: [id number] Dis Date: Status: REG ER PHONE #: [phone] Exam Date: 03/03/2020 0145 FAX #: [phone] Reason: back pain EXAMS: CPT CODE: [id number] XR L-SPINE 2/3 VIEWS 09299 Exam: L-spine 3 views AP, lateral and [...] By: ValentinaFC Orig Print D/T: S: 2019 (7975) PAGE 1 Signed Report PROTHROMBIN [id number] 01:46:00* Test Item Value Reference Range Interpretation [...] (2.5-3.5) IS PATIENT ON ANTICOAGULANTS? NTHROMBOPLASTIN TIME GUMXLWY2057-92-40 01:46:00* Test Item Value Reference Range Interpretation Comments THROMBOPLASTIN TIME PARTIAL (test code = PTT) 29.3 seconds 25.0-36. 5 N IS PATIENT ON ANTICOAGULANTS? NCBC W/O LRLS0912-59-01 01:33:00* Test Item Value Reference Range Interpretation [...] [U] XRAY SHOULDER MIN 2 VWS RIGHT [id number] 13:12:00Images acquired, not reported on this accession number.[facility] WhflpjgjgiYLPVUU8881-02-14 12:50:00* Test Item Value Reference Range Interpretation Comments GLUBED (test code = GLUBED) 118 mg/dL 74-106 H Performed by certified roving machine operator at [facility] RYJUYF0854-83-91 12:50:00* Test Item Value Reference Range Interpretation Comments GLUBED (test code = GLUBED) 171 mg/dL 74-106 H Performed by certified roving machine operator at [facility] MR Shoulder wo contrast [id number] 14:02:00EXAMINATION: MR right shoulder without contrastHISTORY: - S46.001A Unspecified injury of muscle(s) and tendon(s) of therotator cuff of right shoulder, initial encounter; right shoulder pain andlimited range of motion with history of fall one month ago; history of priorright shoulder surgeriesCOMPARISON: Radiographs dated 01/15/2018 and prior MR dated 02/01/2018 arereviewed.TECHNIQUE: Multiplanar, multisequence magnetic resonance imaging of [facility] is performed with a local coil. Transverse, [...] Signed by: Justice Kamara MD 03/27/1916:26FINAL REPORT [facility] NqeybmzirfUQWBAX5272-74-26 12:28:00* Test Item Value Reference Range Interpretation Comments GLUBED (test code = GLUBED) 132 mg/dL 74-106 H Performed by certified roving machine operator at [facility] IQHJPO7801-99-16 12:28:00* Test Item Value Reference Range Interpretation Comments GLUBED (test code = GLUBED) 99 mg/dL 74-106 N Performed by certified roving machine operator at [facility] ESNHAM5184-75-91 12:28:00* Test Item Value Reference Range Interpretation Comments GLUBED (test code = GLUBED) 123 mg/dL 74-106 H Performed by certified roving machine operator at [facility] AMVAIP8052-16-29 12:28:00* Test Item Value Reference Range Interpretation Comments GLUBED (test code = GLUBED) 96 mg/dL 74-106 N Performed by certified roving machine operator at [facility] ANTINUCLEAR ANTIBODIES [id number] 14:11:00* Test Item Value Reference Range Interpretation Comments GUI SCREEN (test code = ANASCR) Negative Negative Performed At: [facility] [address] [id number] Tato Fitzgerald MD Ph:[phone] ACUTE HEPATITIS [id number] 14:11:00* Test Item Value Reference Range Interpretation [...] with a HCV Nucleic Acid Amplification test (379460).Performed At: [facility] [id number] Fitzgerald MD Ph:[phone] AB BMGONOTQPQVTR6268-08-98 14:11:00* Test Item Value Reference Range Interpretation Comments AB MITOCHONDRIAL (test code = MITOCHAB) <20.0 Units 0.0-20.0 Negative 0.0 - 20.0 Equivocal 20.1 - 24.9 Positive >24.9Mitochondrial (M2) Antibodies are found in 90-96% ofpatients with primary biliary cirrhosis.Performed At: [facility] [id number] Rosario MD Ph:[phone] AB ANTI-SMOOTH [id number] 14:11:00* Test Item Value Reference Range Interpretation Comments AB ANTI-SMOOTH MUSCLE (test code = SMOOTHAB) 12 Units 0-19 Negative 0 - 19 Weak positive 20 - 30 Moderate to strong positive >30 Actin Antibodies are found in 52-85% of patients with autoimmune hepatitis or chronic active hepatitis and in 22% of patients with primary biliary cirrhosis.Performed At: [facility] [id number] Rosario MD Ph:[phone] ANTINUCLEAR ANTIBODIES [id number] 12:14:00* Test Item Value Reference Range Interpretation Comments GUI SCREEN (test code = ANASCR) Negative Negative Performed At: [facility] [id number] Fitzgerald MD Ph:[phone] ACUTE HEPATITIS [id number] 12:14:00* Test Item Value Reference Range Interpretation [...] with a HCV Nucleic Acid Amplification test (087957).Performed At: [facility] [address] [id number] Kyle L MD Ph:[phone] AB [id number] 12:14:00* Test Item Value Reference Range Interpretation Comments AB MITOCHONDRIAL (test code = MITOCHAB) EIA <1.0 AB ANTI-SMOOTH [id number] 12:14:00* Test Item Value Reference Range Interpretation Comments AB ANTI-SMOOTH MUSCLE (test code = SMOOTHAB) 12 Units 0-19 Negative 0 - 19 Weak positive 20 - 30 Moderate to strong positive >30 Actin Antibodies are found in 52-85% of patients with autoimmune hepatitis or chronic active hepatitis and in 22% of patients with primary biliary cirrhosis.Performed At: [facility] [address] [id number] Rosario MD Ph:[phone] CBC W/AUTO CDHR9935-03-31 11:02:00* Test Item Value Reference Range Interpretation [...] = MDIFF) NO, ONLY SCAN NEEDED DIFFERENTIAL [id number] 11:02:00* Test Item Value Reference Range Interpretation [...] code = PLTMORPH) NORMAL - CT ABDOMEN W/RLFQ9718-66-55 10:11:00 Name: ALICIA KING [facility] : 1950 Age/S: 68 / F Barbara Weber Unit #: [id number] Loc: [place] [address] Phys: Derick Mccall MD Acct: [id number] Dis Date: Status: ADM IN PHONE #: [phone] Exam Date: 03/08/2019 08 FAX #: [phone] Reason: abnormal liver function, anemia, alcohol abuse EXAMS: CPT CODE: [id number] CT ABDOMEN W/CONT 66664 HISTORY: Abnormal liver function tests and anemia. [...] measurement of 10 as seen on the 2013 exam. Main portal vein and hepatic artery [...] body. PAGE 1 Signed Report (CONTINUED) Nam rich: ALICIA KING [facility] : Age/S: 68 / F [address] [facility] Unit #: [id number] Loc: [place] [address] Phys: Derick Mccall MD Acct: [id number] Dis Antonio e: Status: ADM IN PHONE #: [phone] Exam Date: 03/08/2019837 FAX #: [phone] Reason: abnormal liver function, anemia, alcohol abuse EXAMS: CPT CODE: [id number] CT ABDOMEN W/CONT 59992 <Continued> IMPRESSION: Diffusely fatty infiltrated liver with stable hepatic cyst measuring 4.4 cm in the right lobe in segment 5 from 2013. No hydroureteronephrosis with homogeneous enhancement and excretion. Bosniak 2 lesions bilaterally are stable from 2014. No bowel obstruction or colitis or diverticulitis or enteritis. Appendix is not visible but no inflammatory change. No free fluid, free air or abscess. at 1011 Reported and signed by: Lincoln Zayas M.D. CC: Derick Mccall MD; Bon Weston; Nata Buenrostroh Technologist:ALIYAH SANDS(R); Cuca Renee CTDI: DLP: Trnscb Date/Time: 03/08/2019 (1011) t.ANITRAR.TH4 Orig Print D/T: S: 03/08/2019 (1014) CTDI: DLP: PAGE 2 Signed Report B-TYPE NATRIURETIC PEPTIDE 2019-03-08 09:10:00* Test Item Value Reference Range Interpretation Comments B-TYPE NATRIURETIC PEPTIDE (test code = BNP) 449.25 pgram/mL 0-100 H CBC W/AUTO [id number] 08:44:00* Test Item Value Reference Range Interpretation [...] = MDIFF) NO, ONLY SCAN NEEDED DIFFERENTIAL [id number] 08:44:00* Test Item Value Reference Range Interpretation Comments STAIN ACCEPTABILITY (test code = STN ACCEPTABLE) CABOT RINGS (test code = CAB) MORPHOLOGY COMMENT (test code = MOC) PLATELET ESTIMATE (test code = PLTEST) PLATELET MORPHOLOGY (test code = PLTMORPH) CBC W/AUTO [id number] 08:44:00* Test Item Value Reference Range Interpretation [...] = MDIFF) NO, ONLY SCAN NEEDED DIFFERENTIAL [id number] 08:44:00* Test Item Value Reference Range Interpretation Comments STAIN ACCEPTABILITY (test code = STN ACCEPTABLE) CABOT RINGS (test code = CAB) MORPHOLOGY COMMENT (test code = MOC) PLATELET ESTIMATE (test code = PLTEST) PLATELET MORPHOLOGY (test code = PLTMORPH) CBC W/AUTO [id number] 08:44:00* Test Item Value Reference Range Interpretation [...] = MDIFF) NO, ONLY SCAN NEEDED DIFFERENTIAL [id number] 08:44:00* Test Item Value Reference Range Interpretation Comments STAIN ACCEPTABILITY (test code = STN ACCEPTABLE) MORPHOLOGY COMMENT (test code = MOC) PLATELET ESTIMATE (test code = PLTEST) PLATELET MORPHOLOGY (test code = PLTMORPH) CBC W/AUTO [id number] 08:44:00* Test Item Value Reference Range Interpretation [...] = MDIFF) NO, ONLY SCAN NEEDED DIFFERENTIAL [id number] 08:44:00* Test Item Value Reference Range Interpretation Comments STAIN ACCEPTABILITY (test code = STN ACCEPTABLE) CABOT RINGS (test code = CAB) MORPHOLOGY COMMENT (test code = MOC) PLATELET ESTIMATE (test code = PLTEST) PLATELET MORPHOLOGY (test code = PLTMORPH) BASIC METABOLIC [id number] 07:24:00* Test Item Value Reference Range Interpretation [...] CA) 7.5 mg/dL 8.5-10.1 L BASIC METABOLIC [id number] 07:14:00* Test Item Value Reference Range Interpretation [...] CALCIUM (test code = CA) mg/dL 8.5-10.1 [id number] 22:37:00* Test Item Value Reference Range Interpretation Comments FERRITIN (test code = HAYLEE) 67 ng/mL 8-388 N SPECIMEN COMMENTS: add onBASIC METABOLIC [id number] 07:29:00* Test Item Value Reference Range Interpretation [...] code = CA) 7.0 mg/dL 8.5-10.1 L [id number] 07:29:00* Test Item Value Reference Range Interpretation Comments MAGNESIUM (test code = MAG) 1.5 mg/dL 1.8-2.4 L [id number] 07:28:00* Test Item Value Reference Range Interpretation Comments PHOSPHORUS (test code = PHOS) 2.0 mg/dL 2.5-4.9 L BASIC METABOLIC [id number] 07:18:00* Test Item Value Reference Range Interpretation [...] CALCIUM (test code = CA) mg/dL 8.5-10.1 [id number] 07:18:00* Test Item Value Reference Range Interpretation Comments MAGNESIUM (test code = MAG) mg/dL 1.8-2.4 CBC W/AUTO [id number] 07:02:00* Test Item Value Reference Range Interpretation [...] DIFF REQUIRED (test code = MDIFF) NO [id number] 13:36:00* Test Item Value Reference Range Interpretation Comments MAGNESIUM (test code = MAG) 1.5 mg/dL 1.8-2.4 L BETA [id number] 11:19:00* Test Item Value Reference Range Interpretation Comments BETA HYDROBUTYRATE (test code = BETHYD) 88 mg/dL () A Confirmed by dilution.Reference Range:All Ages (fasting): 0.2 - 2.8Performed At: [facility] [address] [place], [place] [id number] Oquendo MD Ph:[phone] GASTRIC,[id number] 11:02:00 RUN DATE: 03/06/19 [facility] PAGE 1 RUN TIME: 1102 Specimen Inqui ry RUN USER: INTERFACE PATIENT: ALICIA KING ACCT #: [id number] LOC: [place] U #: [id number] AGE/SX: 68/F ROOM: RE03/02/19REG DR: Nata Buenrostro MD : 46 BED: A DIS: STATUS: ADM IN TLOC: SPEC #: [id number] RECD: 03/05/19 STATUS: CAROLANN MAGALLON #: [id number] JAMEY: 03/04/19- SUBM DR: Selvin Forrest MD ENTERED: 03/05/19 SP TYPE: GASTRIC BX OTHR DR: Selvin Valdes i, MD, Thomas J MD Qureshi, Salah Uddin MDORDERED: GROSS COPIES TO: Selvin Forrest MD [address], [address] [place] [address] [place] [address] [place] [address] Renuka Abraham MD [address] [facility] [address] [place] [address] [place] OCEDURES: GROSS (03/06/19) TISSUES: ANTRUM - BX CLINICAL HISTORY COLLECTION DATE: 03/04/19 ANEMIA, MELENA FINAL DIAGNOSIS Lower third of the esophagus, biopsy: GASTROESOPHAGEAL MUCOSA WITH MIL D CHRONIC INFLAMMATION CONSISTENT WITH MILD REFLUX ESOPHAGITIS WITH RICARDO CTIVE CARDITIS NEGATIVE FOR INTESTINAL METAPLASIA, DYSPLASIA OR MALIGNANC Y FA/sm D 42690 CONTINUED ON NE XT PAGE RUN DATE: 03/06/19 [facility] Lab PAGE 2 RUN TIME: 1102 Spe Blue Sourceen Inquiry RUN USER: INTERFACE SPEC #: [id number] PATIENT: ALICIA SANDERS #[id number] (Continued) M ACROSCOPIC The specimen is received in formalin, labeled with the patient's n radha, designated "antrum" and identified as "lower third of esphagus", on endos copy report, and consists of three savage-pink biopsy tissue measuring 0.1 to 0.3 cm, entirely submitted in a single cassette. GROSS PERFORMED AT [facility] [address] [place] [address] (p)[phone] MICROSCOPIC All of the stains, including any controls performed, stain appropriately. MICROSCO PIC PERFORMED AT [facility] [address] [place] [address] (P)[phone] PERFORMING SITE Diagnosis performed at: [facility], [place] [address] [facility], [place] [address] Signed S IGNATURE ON FILE Feliz Beltre MD 03/06/19 1102 ----- ------- END OF REPORT ANTINUCLEAR ANTIBODIES [id number] 09:17:00* Test Item Value Reference Range Interpretation Comments GUI SCREEN (test code = ANASCR) Negative Negative Performed At: [facility] [id number] Tato Fitzgerald MD Ph:[phone] ACUTE HEPATITIS [id number] 09:17:00* Test Item Value Reference Range Interpretation [...] with a HCV Nucleic Acid Amplification test (713361).Performed At: [facility] [address] [place], [place] [id number] Tato Fitzgerald MD Ph:[phone] AB [id number] 09:17:00* Test Item Value Reference Range Interpretation Comments AB MITOCHONDRIAL (test code = MITOCHAB) EIA <1.0 AB ANTI-SMOOTH [id number] 09:17:00* Test Item Value Reference Range Interpretation Comments AB ANTI-SMOOTH MUSCLE (test code = SMOOTHAB) Units BASIC METABOLIC [id number] 07:39:00* Test Item Value Reference Range Interpretation Comments SODIUM (test code = NA) 147 mmol/L 136-145 H POTASSIUM (test code = K) 2.4 mmol/L 3.5-5.1 LL Re sults called to [id number] by V.LAB.LDB 03/06/19 0738Critical results verified and read back [...] code = CA) 7.5 mg/dL 8.5-10.1 L [id number] 07:39:00* Test Item Value Reference Range Interpretation Comments PHOSPHORUS (test code = PHOS) 1.9 mg/dL 2.5-4.9 L [id number] 07:39:00* Test Item Value Reference Range Interpretation Comments MAGNESIUM (test code = MAG) 1.5 mg/dL 1.8-2.4 L ANTINUCLEAR ANTIBODIES [id number] 07:34:00* Test Item Value Reference Range Interpretation Comments GUI SCREEN (test code = ANASCR) ACUTE HEPATITIS [id number] 07:34:00* Test Item Value Reference Range Interpretation [...] with a HCV Nucleic Acid Amplification test (006129).Performed At: [facility] [address] [id number] Tato Fitzgerald MD Ph:[phone] AB [id number] 07:34:00* Test Item Value Reference Range Interpretation Comments AB MITOCHONDRIAL (test code = MITOCHAB) EIA <1.0 AB ANTI-SMOOTH [id number] 07:34:00* Test Item Value Reference Range Interpretation Comments AB ANTI-SMOOTH MUSCLE (test code = SMOOTHAB) Units CBC W/AUTO [id number] 06:31:00* Test Item Value Reference Range Interpretation [...] code = FESAT) 15.92 % 13-45 N [id number] 07:24:00* Test Item Value Reference Range Interpretation Comments PHOSPHORUS (test code = PHOS) 1.1 mg/dL 2.5-4.9 L [id number] 07:24:00* Test Item Value Reference Range Interpretation Comments MAGNESIUM (test code = MAG) 1.9 mg/dL 1.8-2.4 N [id number] 07:17:00* Test Item Value Reference Range Interpretation Comments PHOSPHORUS (test code = PHOS) mg/dL 2.5-4.9 [id number] 07:17:00* Test Item Value Reference Range Interpretation Comments MAGNESIUM (test code = MAG) 1.9 mg/dL 1.8-2.4 N HEPATIC FUNCTION [id number] 18:34:00* Test Item Value Reference Range Interpretation [...] due to change in reagent. VENOUS BLOOD [id number] 17:00:00* Test Item Value Reference Range Interpretation Comments VENOUS BLOOD GAS PH (test code = PHV) 7.49 7.30-7.40 H VENOUS BLOOD GAS PCO2 (test code = PCO2V) 29.0 mm Hg 39.0-51.0 LL Results called to and read back by Monica 16:59 - 03/03/2019; by Murphy VENOUS BLOOD GAS [...] called to and read back by Monica 16:59 - 03/03/2019; by Murphy METHEMOGLOBIN (test code = METHGB) 0.4 % 0.0-1.50 N CBC W/MANUAL [id number] 16:59:00* Test Item Value Reference Range Interpretation [...] code = IMMAT) 0.9 % BASIC METABOLIC [id number] 16:46:00* Test Item Value Reference Range Interpretation [...] CA) 7.5 mg/dL 8.5-10.1 L CBC W/MANUAL [id number] 16:26:00* Test Item Value Reference Range Interpretation [...] MORPHOLOGY (test code = PLTMORPH) CBC W/MANUAL [id number] 16:25:00* Test Item Value Reference Range Interpretation [...] MORPHOLOGY (test code = PLTMORPH) CBC W/MANUAL [id number] 16:25:00* Test Item Value Reference Range Interpretation [...] MORPHOLOGY (test code = PLTMORPH) CBC W/MANUAL [id number] 16:25:00* Test Item Value Reference Range Interpretation [...] MORPHOLOGY (test code = PLTMORPH) CBC W/MANUAL [id number] 16:25:00* Test Item Value Reference Range Interpretation [...] into account the patients history. COMPREHENSIVE METABOLIC [id number] 08:22:00* Test Item Value Reference Range Interpretation Comments SODIUM (test code = NA) 141 mmol/L 136-145 N POTASSIUM (test code = K) 2.1 mmol/L 3.5-5.1 Re sults called to [id number] by VLisaLAB.RAP 03/03/19 0822Critical results verified and read back [...] This LDL result is a direct measurement.========= [id number] 08:22:00* Test Item Value Reference Range Interpretation Comments MAGNESIUM (test code = MAG) 1.5 mg/dL 1.8-2.4 L CBC W/AUTO [id number] 08:04:00* Test Item Value Reference Range Interpretation [...] = MDIFF) NO, ONLY SCAN NEEDED DIFFERENTIAL [id number] 08:04:00* Test Item Value Reference Range Interpretation Comments STAIN ACCEPTABILITY (test code = STN ACCEPTABLE) MORPHOLOGY COMMENT (test code = MOC) PLATELET ESTIMATE (test code = PLTEST) PLATELET MORPHOLOGY (test code = PLTMORPH) CBC W/AUTO [id number] 08:02:00* Test Item Value Reference Range Interpretation [...] = MDIFF) NO, ONLY SCAN NEEDED DIFFERENTIAL [id number] 08:02:00* Test Item Value Reference Range Interpretation Comments STAIN ACCEPTABILITY (test code = STN ACCEPTABLE) CABOT RINGS (test code = CAB) MORPHOLOGY COMMENT (test code = MOC) PLATELET ESTIMATE (test code = PLTEST) PLATELET MORPHOLOGY (test code = PLTMORPH) CBC W/AUTO [id number] 08:02:00* Test Item Value Reference Range Interpretation [...] = MDIFF) NO, ONLY SCAN NEEDED DIFFERENTIAL [id number] 08:02:00* Test Item Value Reference Range Interpretation Comments STAIN ACCEPTABILITY (test code = STN ACCEPTABLE) MORPHOLOGY COMMENT (test code = MOC) PLATELET ESTIMATE (test code = PLTEST) PLATELET MORPHOLOGY (test code = PLTMORPH) CBC W/AUTO [id number] 08:02:00* Test Item Value Reference Range Interpretation [...] = MDIFF) NO, ONLY SCAN NEEDED DIFFERENTIAL [id number] 08:02:00* Test Item Value Reference Range Interpretation Comments STAIN ACCEPTABILITY (test code = STN ACCEPTABLE) CABOT RINGS (test code = CAB) MORPHOLOGY COMMENT (test code = MOC) PLATELET ESTIMATE (test code = PLTEST) PLATELET MORPHOLOGY (test code = PLTMORPH) - US ABDOMEN [id number] 16:49:00 Name: ALICIA KING [facility] : 1950 Age/S: 68 / F [address] [facility] Unit #: [id number] Loc: [place] [address] Phys: Valentino Hannon MD Acct: [id number] Dis Date: Status: ADM IN PHONE #: [phone] Exam Date: 03/02/2019 1618 FAX #: [phone] Reason: r/o liver cirrhosis EXAMS: CPT CODE: [id number] US ABDOMEN COMPLETE 68522 HISTORY: Liver cirrhosis evaluation. COMPARISON: CT scan [...] without pericholecystic fluid or wall thickening. at 0818 Reported and signed by: Tasia Zayas M.D. CC: Jordy Desai MD; Valentino Hannon MD; Pedro Pablo Weston Technologist: MANDI PETE T rnscb Date/Time: 03/02/2019 (1648) [email or web address] Orig Print D /T: S: 03/02/2019 (2576) Probe: PAGE 1 Signed Report DRUGS OF ABUSE SCREEN 2019-03-02 16:34:00* Test Item Value Reference Range [...] code = METHAURN) NEGATIVE <300 ng/mL URINALYSIS [id number] 16:33:00* Test Item Value Reference Range Interpretation [...] Previously reported result: 2.0 (1+) mg/dLEdited by: [email or web address] on 03/02/19:387099 1633: UROBIL previously reported as: 2.0 (1+) [...] Urine Source? Clean CatchDRUGS OF ABUSE SCREEN [id number] 16:32:00* Test Item Value Reference Range Interpretation [...] code = METHAURN) NEGATIVE <300 ng/mL URINALYSIS [id number] 16:32:00* Test Item Value Reference Range Interpretation [...] FEW #/LPF FEW Urine Source? Clean CatchVITAMIN [id number] 15:41:00* Test Item Value Reference Range Interpretation Comments VITAMIN B12 (test code = VITB12) 708 pg/mL 193-986 N FOLIC [id number] 15:41:00* Test Item Value Reference Range Interpretation Comments FOLIC ACID (test code = FOL) 13.8 ng/mL 3.10-17.50 N [id number] 15:41:00* Test Item Value Reference Range Interpretation Comments ALCOHOL (test code = ALC) < 3 mg/dL 0.0-3.0 N -- INTERPRETIVE DATA NOTE: POSITIVE SCREENING RESULTS SHOULD BE CONSIDERED PRESUMPTIVE.WHEN COLLECTED FOR MEDICAL PURPOSES ONLY. SPECIMEN WILL NOTBE COLLECTED BY CHAIN OF CUSTODY.IF A CONFIRMATION OF POSITIVE RESULTS IS DESIRED, ACONFIRMATION TEST MUST BE REQUESTED BY THE PHYSICIAN AT ANADDITIONAL CHARGE TO THE PATIENT. [id number] 15:10:00* Test Item Value Reference Range Interpretation Comments AMMONIA (test code = AMM) 37 umol/L 11-32 H [id number] 15:08:00* Test Item Value Reference Range Interpretation Comments SALICYLATE (test code = TG) 4.0 mg/dL 2.8-20.0 N PROTHROMBIN [id number] 15:07:00* Test Item Value Reference Range Interpretation [...] (2.5-3.5) IS PATIENT ON ANTICOAGULANTS? NTHROMBOPLASTIN TIME [id number] 15:07:00* Test Item Value Reference Range Interpretation Comments THROMBOPLASTIN TIME PARTIAL (test code = PTT) 26.2 seconds 25.0-36. 5 N IS PATIENT ON ANTICOAGULANTS? [facility] [id number] 15:01:00* Test Item Value Reference Range Interpretation Comments HEMOGLOBIN (test code = HGB) 9.0 gram/dL 11.5-15.5 L HEMATOCRIT (test code = HCT) 27.7 % 36.0-46.0 L LACTIC [id number] 09:02:00* Test Item Value Reference Range Interpretation Comments LACTIC ACID (test code = LACT) 0.9 mmol/L 0.4-1.9 N ARTERIAL BLOOD [id number] 06:29:00* Test Item Value Reference Range Interpretation Comments ARTERIAL BLOOD GAS PH (test code = PHA) 7.21 7.35-7.45 L ARTERIAL BLOOD GAS PCO2 (test code = PCO2A) 20.2 mm Hg 35-45 LL Results called to and read back by Soccer Managerat - 03/02/2019; by rony visual journalist ARTERIAL BLOOD GAS PO2 (test code = PO2A) 97.4 mmHg 80-100 N BICARBONATE TOTAL HCO3 (test code = HCO3) 7.9 mmol/L 23.0-27.0 LL Results called to and read back by Soccer Managerat - 03/02/2019; by rony visual journalist BASE EXCESS (test code = TIFFANI) -18.1 mmol/L -3.0-5.0 LL Results called to and read back by Immure Recordsesat - 03/02/2019; by rony visual journalist ABG O2 SATURATION (test code = SATA) [...] Results called to and read back by Soccer Managerat - 03/02/2019; by rony visual journalist METHEMOGLOBIN (test code = METHGB) 0.7 % 0.0-1.50 N O2 CONTENT (test code = O2CT) 13.8 % vol 18.0-22.0 L COMPREHENSIVE METABOLIC [id number] 05:47:00* Test Item Value Reference Range Interpretation [...] range due to change in reagent. LACTIC [id number] 05:39:00* Test Item Value Reference Range Interpretation Comments LACTIC ACID (test code = LACT) 4.2 mmol/L 0.4-1.9 Results called to [id number] by MIGUEL 03/02/19 0539Critical results verified and read back by Nurse? Y COMPREHENSIVE METABOLIC [id number] 05:29:00* Test Item Value Reference Range Interpretation [...] code = ALKP) IUnit/L 45-117 ARTERIAL BLOOD [id number] 03:46:00* Test Item Value Reference Range Interpretation Comments ARTERIAL BLOOD GAS PH (test code = PHA) 7.08 7.35-7.45 L L Results called to and read back by [employer] 03/02/2019; by Whittl [employer] ARTERIAL BLOOD GAS PCO2 (test code = PCO2A) 29.0 mm Hg 35-45 L ARTERIAL BLOOD GAS PO2 (test code = PO2A) < 44.2 mmHg 80-100 LL Results called to and read back by Art Circleat 03/02/2019; by RONY [employer] BICARBONATE TOTAL HCO3 (test code = HCO3) 8.4 mmol/L 23.0-27.0 LL Results called to and read back by [employer] 03/02/2019; by RONY [employer] BASE EXCESS (test code = TIFFANI) -20.2 mmol/L -3.0-5.0 LL Results called to and read back by Art Circleat 03/02/2019; by RONY [employer] ABG O2 SATURATION (test code = SATA) [...] N - XR SHOULDER 2 + V [id number] 03:34:00 FAX: Bon Lobo MD [phone] [place]: St: [facility] FAX: Cori Begum MD [phone] Name: ALICIA KINGNTYRE [facility] : 1950 Age/S: 68/F [address] [facility] Unit #: [id number] Loc: [place] [address] Phys: Cori Begum MD Acct: [id number] Dis Date: Status: REG ER PHONE #: [phone] Exam Date: 03/02/2019 0332 FAX #: [phone] Reason: post reduction EXAMS: CPT CODE: [id number] XR SHOULDER 2 + V RT [address]9582 - XR SHOULDER 2 + V RT, [...] Bon Weston; Cori Begum MD Technologist: DARLENE LE, RT(R) Trnscrd Date/Time/By: 03/02/2019 ( 0334) : By: [email or web address] Orig Print D/T: S: 03/02/2019 (0335) PAGE 1 Signed Report CBC W/O [id number] 01:57:00* Test Item Value Reference Range Interpretation [...] MPV) 11.7 fL 6.7-11.0 H BASIC METABOLIC [id number] 01:40:00* Test Item Value Reference Range Interpretation [...] CA) 8.6 mg/dL 8.5-10.1 N HEPATIC FUNCTION [id number] 01:40:00* Test Item Value Reference Range Interpretation [...] reference range due to change in reagent. [id number] 01:40:00* Test Item Value Reference Range Interpretation Comments LIPASE (test code = LIP) 359 U/L 73.0-393.0 N PROTHROMBIN [id number] 00:56:00* Test Item Value Reference Range Interpretation [...] (2.5-3.5) IS PATIENT ON ANTICOAGULANTS? NTHROMBOPLASTIN TIME [id number] 00:56:00* Test Item Value Reference Range Interpretation Comments THROMBOPLASTIN TIME PARTIAL (test code = PTT) 27.8 seconds 25.0-36. 5 N IS PATIENT ON ANTICOAGULANTS? N- XR CHEST 1 [id number] 00:46:00 FAX: Bon Lobo MD [phone] [place]: St: [facility] FAX: Cori Begum MD [phone] Name: ALICIA KING [facility] : 1950 Age/S: 68/F [address] Unit #: [id number] Loc: [place] [address] Phys: Cori Begum MD Acct: [id number] Dis Date: Status: REG ER PHONE #: [phone] Exam Date: 03/02/2019 0038 FAX #: [phone] Reason: Abdominal Pain EXAMS: CPT CODE: [id number] XR CHEST 1 V 94511 HISTORY: Abdominal pain Location: C3 COMPAR NEVIN:02/22/2014 [...] MD Technologist: Leela Dupree Trnscrd Date/Time/By: 03/02/2019 (004) : By: [email or web address] Orig Print D/T : S: 03/02/2019 (0049) PAGE 1 Sig alma Report - XR SHOULDER 2 + V [id number] 00:40:00 FAX: Bon Lobo MD [phone] [place]: St: [facility] FAX: Cori Begum MD [phone] Name: ALICIA KING [facility] : 1950 Age/S: 68/F [address] Unit #: [id number] Loc: [place] [address] Phys: Cori Begum MD Acct: [id number] Dis Date: Status: REG ER PHONE #: [phone] Exam Date: 03/02/2019 0037 FAX #: [phone] Reason: PAIN, DISLOCATION EXAMS: CPT CODE: [id number] XR SHOULDER 2 + V RT [address]3731 EXAM: - XR SHOULDER 2 + V [...] Technologist: Leela Herr Trnscrd Date/Time/By: 03/02/2019 ( 004) : By: [email or web address] Orig Print D/T: S: 03/02/2019 (0044) PAGE 1 Signed Report MR Shoulder wo contrast [id number] 16:24:00EXAMINATION: MR right shoulder without contrastHISTORY: M25.511 Pain in right shoulder - M25.511 Pain in right shoulder; AGE: 67 yearsGENDER: FemaleCOMPARISON: Right shoulder radiographs 01/15/2018TECHNIQUE: Multiplanar, multisequence magnetic resonance imaging of [facility] is performed with a local coil. Transverse, [...] biceps tendon.4. Moderate subacromial/subdeltoid bursitis.--Read by: Eitan Phillip MDDi ctated Date/time: 02/01/18 17:18Electronically Signed by: Eitan Phillip MD 02/01/1817:26FINAL REPORTUnValley View Medical Center
--- NOTE | 2020-07-09 20:40 | Diagnostic Imaging Report ---
EXAMINATION: CHEST SINGLE (PORTABLE) INDICATION: Fall with back pain. COMPARISON: Chest x-ray on 07/05/2020. FINDINGS: TUBES and LINES: None. LUNGS: Normal lung volumes. Lungs are clear. No consolidations. PLEURA: No pleural effusion or pneumothorax. HEART AND MEDIASTINUM: The cardiomediastinal silhouette is unremarkable. BONES AND SOFT TISSUES: No acute osseous lesion. Soft tissues are unremarkable. UPPER ABDOMEN: No free air under the diaphragm. IMPRESSION: No acute thoracic radiographic abnormality. Signed by: Nick Roy MD on 07/09/2020 8:36 PM
--- NOTE | 2020-07-09 20:42 | Diagnostic Imaging Report ---
Examination: CT head without contrast Clinical Indication: Fall ; trauma. Technique: Transaxial noncontrast images from the skull base through the vertex were obtained. Sagittal and coronal reformatted images were done. Dose modulation, iterative reconstruction, and/or weight based adjustment of the mA/kV was utilized to reduce the radiation dose to as low as reasonably achievable. Comparison: None. Findings: Scalp: No abnormalities. Bones: Intact. No fractures. No blastic or lytic lesions. Brain sulci: Generalized volume loss for patient's age. Ventricles: No hydrocephalus. Extra-axial space: No abnormalities. Parenchyma: There are patchy and confluent areas of low-attenuation within subcortical and periventricular white matter, nonspecific, but could represent microvascular ischemic disease. No masses, hemorrhage, or acute or chronic cortical based vascular insults. Suprasellar region: No abnormalities. Craniocervical junction: The foramen magnum is patent. No Chiari one malformation. Incidental findings: Atherosclerotic calcification of the cavernous and supraclinoid internal carotid and V4 segments of the bilateral vertebral arteries. Impression: 1. No acute intracranial finding. 2. Chronic microvascular ischemic change and volume loss. Signed by: Dr. Whitney Holt M.D. on 07/09/2020 8:39 PM
--- NOTE | 2020-07-09 20:55 | Diagnostic Imaging Report ---
Examination: CT CERVICAL SPINE WO CONTRAST HISTORY:Neck pain and injury after fall. COMPARISON:None. TECHNIQUE: Multidetector helical axial images were obtained without contrast from the foramen magnum to T1. Coronal and sagittal reformatted images were done. Bone and soft tissue windows were evaluated. Dose modulation, iterative reconstruction, and/or weight based adjustment of the mA/kV was utilized to reduce the radiation dose to as low as reasonably achievable. FINDINGS: Alignment:Normal alignment and lordosis. Vertebrae: Normal height and density. No acute fracture, infection or neoplasm. Disc space heights: Severe C4-C7. Caliber of spinal canal: Developmentally normal. Posterior fossa and craniocervical junction: Foramen magnum patent. No Chiari 1 malformation. Soft tissues: Atherosclerotic calcification in the aortic arch as well as bilateral carotid bifurcations. Degenerative changes: C3-C7 disc osteophyte complexes with moderate right foraminal narrowing at C6-C7. No canal stenosis. Visualized lung apices: No abnormalities. IMPRESSION: 1. No acute abnormalities. 2. Degenerative changes, as above. Signed by: Dr. Whitney Holt M.D. on 07/09/2020 8:51 PM
--- NOTE | 2020-07-09 21:07 | Diagnostic Imaging Report ---
Examination: CT LUMBAR SPINE WO CONTRAST History: Low back pain after fall. Comparison studies: None Technique: Axial images were obtained through the lumbar spine from T12. Coronal and sagittal reconstructions obtained from the axial data. Dose modulation, iterative reconstruction, and/or weight based adjustment of the mA/kV was utilized to reduce the radiation dose to as low as reasonably achievable. Intravenous contrast: None Findings: The usual 5 non-rib bearing lumbar vertebral bodies are present. Alignment: Normal lordosis. No scoliosis. Soft tissues: Atherosclerotic calcification of the abdominal aorta and its branches. Paraspinal muscles: Fatty atrophy. Sacroiliac joints: No degenerative changes. Vertebrae: No infection or neoplasm. Age indeterminate compression fracture of the L1 vertebral body with posterior displacement of the inferior endplate epidural space and causing mild canal stenosis at L1-L2. The heights loss measures 40%. Degenerative changes: Severe narrowing of the L4-L5 intervertebral disc space with endplate sclerosis. L1-L2: Diffuse disc bulge and facet arthropathy result in mild left neural narrowing. No right foraminal narrowing. Mild canal stenosis due to L1 fracture. L2-L3: Asymmetric to the left disc bulge results in mild left neural foraminal narrowing. No right foraminal or canal stenosis. L3-L4: Asymmetric to the left disc bulge and bilateral facet result in mild left neural foraminal narrowing and mild canal stenosis. No right foraminal narrowing. L4-L5: Asymmetric to the right disc osteophyte complex results in moderate right and mild left neural foraminal narrowing. No canal stenosis. L5-S1: Diffuse disc osteophyte results in moderate left foraminal narrowing. No right foraminal or canal stenosis. IMPRESSION: 1. Age-indeterminate compression fracture of L1. Lumbar spine MRI is recommended for further evaluation. 2. Degenerative changes from L1-L2 to L5-S1 with mild canal stenosis at L1-L2 and L3-L4, moderate right foraminal narrowing at L4-L5 and moderate left foraminal narrowing at L5-S1. Signed by: Dr. Whitney Holt M.D. on 07/09/2020 9:04 PM
[2020-07-09 21:53] VITALS: BP 151/79
== END 2020-07-09 22:11 | disposition home or self-care (01) ==
LOC: ER 19:55
DX: S32.010A Wedge compression fracture of first lumbar vertebra, initial encounter for closed fracture (principal); W01.0XXA Fall on same level from slipping, tripping and stumbling without subsequent striking against object, initial encounter; Y92.008 Other place in unspecified non-institutional (private) residence as the place of occurrence of the external cause
CPT/HCPCS: 70450; 71045; 72125; 72131; 72170; 99283

== ENCOUNTER 2021-01-03 19:16 | Emergency (ER) | payer OTHER ==
[~2021-01-03] VITALS: Ht 149.9 cm; Wt 78.0 kg
[2021-01-03] MEDS ORDERED: LIDOCAINE HCL 1% LOCAL INJ 20 ML VIAL INJ ONE (19:45)
[2021-01-03] MEDS ORDERED: TETANUS/DIPHTHERIA TOX ADULT 0.5 ML SYR IM ONE (19:45)
[2021-01-03] MEDS ORDERED: BACITRACIN ZINC 0.9GM TP ONE ×2 (20:27→20:30)
== END 2021-01-03 20:52 | disposition home or self-care (01) ==
LOC: ER 19:34
DX: S01.81XA Laceration without foreign body of other part of head, initial encounter (principal); W01.0XXA Fall on same level from slipping, tripping and stumbling without subsequent striking against object, initial encounter; Y93.01 Activity, walking, marching and hiking; Y92.512 Supermarket, store or market as the place of occurrence of the external cause
CPT/HCPCS: 12011; 70450; 70486; 72125; 90471; 90714; 99283; J2001